=== PATIENT | male | born 1940 | race Caucasian/White ===

== ENCOUNTER 2023-01-05 16:50 | Outpatient (OUT) | payer OTHER, SELFPAY ==
[2023-01-05 17:15] LABS: Calcium 10.3 mg/dL (8.5-10.1)
== END 2023-01-05 16:51 | disposition home or self-care (01) ==
PROVIDERS: PCP Nurse Practitioner Family; Visit Provider Nurse Practitioner Family
DX: M81.0 Age-related osteoporosis without current pathological fracture (principal)
CPT/HCPCS: 36415; 82310

== ENCOUNTER 2023-01-20 14:54 | Outpatient (OUT) | payer OTHER, SELFPAY ==
[2023-01-20 15:07] LABS: Hemoglobin 10.6 g/dL (14.0-18.0)
== END 2023-01-20 14:55 | disposition home or self-care (01) ==
LOC: LAB 14:55
PROVIDERS: Visit Provider Psychiatry & Neurology Neurology
DX: G70.00 Myasthenia gravis without (acute) exacerbation (principal)
CPT/HCPCS: 36415; 83540; 85018

== ENCOUNTER 2023-02-15 11:10 | Emergency (ER) | payer OTHER, SELFPAY ==
[2023-02-15] VITALS (8 sets, daily range): BP systolic 148; BP diastolic 67; PULSE 44–51; RESP 16–23; TEMP 36.4; O2SAT 98; BMI 31.3
--- NOTE | 2023-02-15 11:20 | ECG_ITS ---
[facility] Test Date: 2023-02-15 Pat Name: COTY GARCIA Department: Room: - Gender: Male [employer]: : 1940 Requested By: [id number] Order Number: [id number] Reading MD: DINORAH LO Measurements Intervals Beccaria Rate: 47 P: -6 MN: 184 QRS: -13 QRSD: 102 T: 38 QT: 502 QTc: 464 Interpretive Statements 1102 Sinus arrhythmia 1130 Sinus bradycardia 3414 Cannot rule out septal myocardial infarction, age undetermined 4564 Twave abnormality, possible inferolateral ischemia 5233 Voltage criteria for LVH 9150 abnormal ECG No previous ECG available for comparison Electronically Signed On 02-16-2023 7:00:30 EDT by DINORAH LO
--- NOTE | 2023-02-15 11:20 | XR_ITS ---
The [address] [address] Patient Name: COTY GARCIA MRN: [id number] date: 1940 Sex: M Assigned Patient Location: ED.MAIN Current Patient Location: ER Accession/Order Number: [id number] Exam Date: 02/15/2023 11:30 Report Date: 02/15/2023 12:23 At the request of: RYAN RADFORD Procedure: XR chest 1V XR chest 1V 02/15/2023 11:30 AM EDT INDICATION: Dizzy. Nausea. COMPARISON: Radiograph the chest 12/01/2021 FINDINGS: Cardiomediastinal silhouette within normal limits. No focal consolidation or pleural effusion. No pneumothorax. Remote left rib fractures. No acute fracture or dislocation. XR/XR chest 1V IMPRESSION: No acute cardiopulmonary process. Electronically authenticated by: RACHEL LOPEZ Date: 02/15/2023 12:23
[2023-02-15 11:52] LABS: Basophils Percent Auto 0.5 % (0.2-2.0); Eosinophils Absolute Auto 0.1 10^3/uL (0.0-0.7); Eosinophils Percent Auto 1.6 % (0.9-7.0); Hematocrit 34.8 % (42.0-54.0); Hemoglobin 10.9 g/dL (14.0-18.0); Immature Granulocytes Abs Auto 0.01 10^3/uL (0.00-0.03); Immature Granulocytes Pct Auto 0.2 % (0.0-0.5); Lymphocytes Absolute Auto 1.1 10^3/uL (1.2-3.8); Lymphocytes Percent Auto 19.3 % (20.5-60.0); Mean Corpuscular HGB Conc 31.3 g/dL (29.9-35.2); Mean Corpuscular Hemoglobin 32.5 pg (25.9-34.0); Mean Corpuscular Volume 103.9 fL (80.0-94.0); Mean Platelet Volume 9.9 fL (9.5-13.5); Monocytes Absolute Auto 0.5 10^3/uL (0.3-0.8); Monocytes Percent Auto 9.1 % (1.7-12.0); Neutrophils Percent Auto 69.3 % (43.0-75.0); Platelet Count 183 10^3/uL (150-450); Red Blood Count 3.35 10^6/uL (4.70-6.10); Red Cell Distribution Width 14.7 % (11.0-15.0); White Blood Count 5.8 10^3/uL (4.0-11.0)
[2023-02-15 12:43] LABS: Anion Gap 14.4; BUN Creatinine Ratio 18.7; Calcium 9.5 mg/dL (8.5-10.1); Carbon Dioxide 24.7 mmol/L (21.0-32.0); Chloride 106 mmol/L (98-107); Estimated GFR (African America >60 (>=60); Estimated GFR (Non-African Ame >60 (>=60); Glucose 134 mg/dL (74-106); Potassium 4.1 mmol/L (3.5-5.1); Sodium 141 mmol/L (136-145); Troponin I High Sensitivity 9.9 pg/mL (4.0-76.1)
--- NOTE | 2023-02-15 14:21 | ED_ITS ---
HPI - Dizziness General Chief Complaint: Dizziness Stated Complaint: LIGHTHEAD/DIZZINESS Time Seen by Provider: 02/15/23 11:18 Source: patient Mode of arrival: er cart History of Present Illness HPI Narrative: 82-year-old male to the emergency department with chief complaint of near- syncopal episode. Patient reports that he was at outpatient radiology about to get a DEXA scan. He reports he is feeling hot in the room in which she was si tting and began to black out. He did not lose consciousness. He did not have palpitations, chest pain, shortness of breath during this episode. He reports that he rapidly recovered. He is currently asymptomatic. Patient reports that he did not want to be seen in the emergency department but was urged to be checked out. MD elicited complaint: Reports near syncope Related Data Allergies Allergy/AdvReac Type Severity Reaction Status Date / Time No Known Drug Allergies Allergy Verified 02/15/23 11:14 Review of Systems ROS Status of ROS 10 or more systems reviewed and unremarkable except as noted in history and below Exam Narrative Exam Narrative: VITALS: I have reviewed the triage vital signs. GENERAL: Well developed, well appearing adult in no acute distress. NEURO: Alert and oriented. Moves all extremities. Face is symmetric and expressive. EYES: PERRL. No scleral icterus or conjunctival injection. No discharge. HENT: Normocephalic, atraumatic. Hearing is grossly intact. Nares grossly patent and without discharge. Mucous membranes moist. NECK: No JVD. Patient moves neck without restriction. CARDIO: Rhythm regular. Normal rate. No murmur, rub, or gallop. Pulses equal bilaterally in the upper and lower extremity. No lower extremity edema. PULM: Lungs clear to auscultation in all gonsalez. No wheezes, rales, or rhonchi. No conversational dyspnea. No splinting, stridor, or accessory muscle use. GI/: Abdomen is soft and non-tender. Normoactive bowel sounds. EXTREMITIES: Symmetric muscle bulk. No joint swelling. No clubbing, cyanosis, or deformity. SKIN: Warm and dry. Normal turgor. No rash or lesions appreciated. PSYCH: Mood, affect, and interaction is appropriate to the setting. Constitutional Vital Signs, click to edit/add: Last Vital Signs Temp 97.6 F 02/15/23 11:14 Pulse 51 L 02/15/23 12:50 Resp 23 02/15/23 12:50 BP 148/67 H 02/15/23 11:14 Pulse Ox 98 02/15/23 11:14 O2 Del Method Room Air 02/15/23 11:14 Course Vital Signs Vital signs: Vital Signs Blood Pressure 148/67 H 02/15/23 11:07 Temperature 97.6 F 02/15/23 11:14 Pulse Rate 51 L 02/15/23 12:50 Respiratory Rate 23 02/15/23 12:50 Blood Pressure 148/67 H 02/15/23 11:14 Pulse Oximetry 98 02/15/23 11:14 Oxygen Delivery Method Room Air 02/15/23 11:14 MDM - Dizziness MDM Narrative Medical decision making narrative: Well-appearing 82-year-old male to the emergency department by chief complaint near syncopal episode that rapidly resolved. Vital stable, the patient is afebrile. 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 He denies any chest pain or shortness of breath. Patient initially did not want to be seen. I talked him into getting some basic labs. Lab reviewed and noted. No significant abnormalities. Troponin is negative. Chest x-ray without acute findings. EKG sinus bradycardia at a rate of 47. No ST changes. Normal QTC. Discussed findings with the patient. He remained asymptomatic. Given his advanced age I did offer admission, he declines. Reports that his dogs are only needs to get home immediately. Patient would like to leave. Discussed follow-up with PCP. Return should return discussed. All questions were answered. The patient was discharged home. Lab Data Labs: Lab Results 02/15/23 Range/Units 11:38 WBC 5.8 (4.0-11.0) 10^3/uL RBC 3.35 L (4.70-6.10) 10^6/uL Hgb 10.9 L (14.0-18.0) g/dL Hct 34.8 L (42.0-54.0) % MCV 103.9 H (80.0-94.0) fL MCH 32.5 (25.9-34.0) pg MCHC 31.3 (29.9-35.2) g/dL RDW 14.7 (11.0-15.0) % Plt Count 183 (150-450) 10^3/uL MPV 9.9 (9.5-13.5) fL Neut % (Auto) 69.3 (43.0-75.0) % Lymph % (Auto) 19.3 L (20.5-60.0) % [place] % (Auto) 9.1 (1.7-12.0) % Eos % (Auto) 1.6 (0.9-7.0) % Baso % (Auto) 0.5 (0.2-2.0) % Neut # (Auto) 4.0 (1.4-6.5) 10^3/uL Lymph # (Auto) 1.1 L (1.2-3.8) 10^3/uL [place] # (Auto) 0.5 (0.3-0.8) 10^3/uL Eos # (Auto) 0.1 (0.0-0.7) 10^3/uL Baso # (Auto) 0.0 (0.0-0.1) 10^3/uL Abs Immat Gran (auto) 0.01 (0.00-0.03) 10^3/uL Imm/Tot Granulo (auto) 0.2 (0.0-0.5) % Sodium 141 (136-145) mmol/L Potassium 4.1 (3.5-5.1) mmol/L Chloride 106 (98-107) mmol/L Carbon Dioxide 24.7 (21.0-32.0) mmol/L Anion Gap 14.4 BUN 14.0 (7.0-18.0) mg/dL Creatinine 0.75 (0.70-1.30) mg/dL Est GFR ( Amer) >60 (>=60) Est GFR (Non-Af Amer) >60 (>=60) BUN/Creatinine Ratio 18.7 Glucose 134 H (74-106) mg/dL Calcium 9.5 (8.5-10.1) mg/dL Troponin I High Sens 9.9 (4.0-76.1) pg/mL Discharge Plan Discharge Chief Complaint: Dizziness Clinical Impression: Near syncope Patient Disposition: Home, Self-Care Time of Disposition Decision: 12:54 Condition: Good Print Language: Amharic Instructions: Near Syncope (ED) Stand Alone Forms: Portal Instructions Referrals: Physician,Non-Staff, MD [Primary Care Provider] - 1 week (Follow-up with her [facility] doctor. Return to the Emergency Department should her symptoms worsen or recur.) Discharge Date/Time: 02/15/23 13:01
== END 2023-02-15 13:01 | disposition home or self-care (01) ==
PROVIDERS: Emergency Provider Student in an Organized Health Care Education/Training Program
DX: R55 Syncope and collapse (principal)
CPT/HCPCS: 36415; 71045; 80048; 84484; 85025; 93005; 99285

== ENCOUNTER 2023-02-17 13:45 | Outpatient (OUT) | payer OTHER, SELFPAY ==
--- NOTE | 2023-02-17 14:00 | XR_ITS ---
[place] [id number] Patient Name: COTY GARCIA MRN: [id number] date: 1940 Sex: M Assigned Patient Location: [facility] Current Patient Location: Accession/Order Number: [id number] Exam Date: 02/17/2023 14:05 Report Date: 02/21/2023 07:32 At the request of: ANYI HOPSON Procedure: XR DEXA axial skeleton EXAMINATION: XR DEXA axial skeleton HISTORY: Screening For Osteoporosis COMPARISON: No relevant comparison available. TECHNIQUE: Dual-energy X-ray absorptiometry (DXA) was performed. FINDINGS: HIP ANALYSIS: Lowest bone mineral density is within the right femoral trochanter, 0.465 g/cm2. T-score (standard deviation relative to young adult mean): -4.2 . T score within femoral neck is also significantly low, -3.3. XR/XR DEXA axial skeleton IMPRESSION: [employer] Classification: Osteoporosis - High Fracture Risk Electronically authenticated by: HERNANDEZ ALCARAZ Date: 02/21/2023 07:32
== END 2023-02-17 13:46 | disposition home or self-care (01) ==
LOC: RAD 13:45
PROVIDERS: Visit Provider Nurse Practitioner Family
DX: M81.0 Age-related osteoporosis without current pathological fracture (principal)
CPT/HCPCS: 77080

== ENCOUNTER 2023-08-05 11:26 | Outpatient (OUT) | payer OTHER, SELFPAY ==
[2023-08-05 12:54] LABS: Calcium 10.7 mg/dL (8.5-10.1)
== END 2023-08-05 11:27 | disposition home or self-care (01) ==
PROVIDERS: Visit Provider Nurse Practitioner Family
DX: M81.0 Age-related osteoporosis without current pathological fracture (principal)
CPT/HCPCS: 36415; 82310

== ENCOUNTER 2023-12-03 11:20 | Emergency (ER) | payer OTHER, SELFPAY ==
[2023-12-03 11:27] VITALS: BP 126/74; PULSE 72; TEMP 36.8; O2SAT 99; BMI 32.2
--- OUTSIDE RECORDS SUMMARY | 2023-12-03 11:45 | XMS_ITS | CCD ---
Author Organization [facility] ion [facility] Care Team Providers Care Plastics Scientist Name Role Phone Collette Barkley Unavailable Charlee Shields Unavailable REQUEST, DR TROTTER LISTED Admitting Unavaila ble REQUEST, DR TROTTER LISTED Attending Unavaila ble REQUEST, DR TROTTER LISTED Primary Care Unavaila ble APLING, ANYI Mckinney Admitting Unavailable APLING, ANYI Mckinney Attending Unavailable REQUEST, DR TROTTER LISTED Primary Care Unavaila ble APLANYI NAVARRETE Consulting Unavailable OLEXA, COLLETTE Admitting Unavailable OLEXA, COLLETTE Attending Unavailable REQUEST, DR TROTTER LISTED Primary Care Unavaila ble WEST, DR DEBBI Lynn Consulting Unavailable OLEXA, COLLETTE Consulting Unavailable REQUEST, DR TROTTER LISTED Primary Care Unavaila ble TIP, ERICK Admitting Unavailable TIP, ERICK Attending Unavailable WEST, DR DEBBI Lynn Consulting Unavailable TIP, ERICK Consulting Unavailable APLING, ANYI Mckinney Attending Unavailable Unavailable Primary Care Provider Unavailabl e Allergies Allergy Classification Reported Allergen(s) Allergy Type Date of Onset Reaction(s) Facility (1 source) ceFAZolin Drug Allergy 11-25-2022 Other [facility] Work Phone: (1 source) Sulfonamides (Antibiotic) Drug Allergy 02-04-2017 Rash [facility] Medications Current Medications Medication Drug Class(es) Dates Sig (Normalized) Sig (Original) aspirin 81 mg delayed release oral tablet (3 sources) Platelet Aggregation Inhibitor, Nonsteroidal Anti-inflammatory Drug take 1 tablet by mouth once aspirin 81 MG EC tablet Take 81 mg by mouth 1 (one) time. 0 Active take 1 tablet by mouth once binu y Aspirin 81 81 MG 1 tablet Orally Once a day Active atorvastatin 80 mg oral tablet (3 sources) HMG-CoA Reductase Inhibitor take 1 tablet by mouth in the morning atorvastatin (Lipitor) 80 MG tablet Take 80 mg by mouth in the morning. 0 Active calcium carbonate 500 mg oral tablet (1 source) take 1 tablet by mouth in the morning calcium carbonate (Os-Antoine) 1250 (500 Ca) MG tablet Take 1,250 mg by mouth in the morning and 1,250 mg before bedtime. 0 Active carvedilol 12.5 mg oral tablet (3 sources) alpha-Adrenergic Rashel, beta-Adrenergic Rashel take 1 tablet by mouth in the morning carvedilol (Coreg) 12.5 MG tablet Take 12.5 mg by mouth in the morning and 12.5 mg in the evening. Take with meals. 0 Active cholecalciferol 0.125 mg oral capsule (1 source) Vitamin D take 1 capsule by mouth in the morning cholecalciferol (Vitamin D-3) 125 MCG (5000 UT) capsule Take 5,000 Units by mouth in the morning. 0 Active diclofenac sodium 0.01 mg/mg topical gel (1 source) Nonsteroidal Anti-inflammatory Drug diclofenac sodium (Voltaren) 1 % gel Apply 4 g topically in the morning and 4 g in the evening and 4 g before bedtime. 0 Active empagliflozin 10 mg oral tablet (1 source) Sodium-Glucose Cotransporter 2 Inhibitor empagliflozin (Jardiance) 10 MG Take by mouth. 0 Active ferrous sulfate 325 mg delayed release oral tablet (1 source) Start: take 1 tablet by mouth at mealtime ferrous sulfate 325 (65 Fe) MG EC tablet Take 325 mg by mouth in the morning. Take with meals. 0 09/25/2022 Active insulin glargine 100 unt/ml injectable solution (2 sources) Insulin Analog Lantus 100 UNIT/ ML as directed Subcutaneous Active linaclotide 0.145 mg oral capsule (1 source) Guanylate Cyclase-C Agonist Start: 023 take 1 capsule by mouth before mealtime linaCLOtide (Linzess) 145 MCG capsule Indications: Irritable bowel syndrome with diarrhea Take 1 capsule (145 mcg) by mouth in the morning. Take before meals. Do not crush or chew.. 90 capsule 3 03/28/2023 Active losartan potassium 50 mg oral tablet (3 sources) Angiotensin 2 Receptor Rashel take 1 tablet by mouth in the morning losartan (Cozaar) 50 MG tablet Take 50 mg by mouth in the morning. 0 Active montelukast 10 mg oral tablet (1 source) Leukotriene Receptor Antagonist Start: 023 take 1 tablet by mouth at bedtime montelukast (Singulair) 10 MG tablet Indications: Chronic maxillary sinusitis Take 1 tablet (10 mg) by mouth at bedtime. 90 tablet 2 03/28/2023 Active nitroglycerin 0.4 mg sublingual tablet (1 source) Nitrate Vasodilator nitroglyceri n (Nitrostat) 0.[address] 0.4 mg under the tongue every 5 (five) minutes if needed for chest pain. 0 Active pantoprazole 40 mg delayed release oral tablet (3 sources) Proton Pump Inhibitor Start: 023 pantoprazole (ProtoNix) 40 MG EC tablet 1 (one) time each day at the same time. 0 08/30/2022 Active take 1 tablet by ramírez th every twenty-four hours Pantoprazole Sodium 20 MG 1 tablet Orall y Once a day Active predniSONE 5 mg oral tablet (1 source) Start: 01-28-2023 End: 01-28-2024 take 1 tablet by mouth in the morning predniSONE (Deltasone) 5 MG tablet Indications: Myasthenia gravis (CMS/HCC) Take 1 tablet (5 mg) by mouth in the morning. 90 tablet 3 01/28/2023 01/28/2024 Active pyridostigmine bromide 180 mg extended release oral tablet (1 source) take 1 tablet by mouth in the morning pyridostigmine (Mestinon) 180 MG ER tablet Take 180 mg by mouth in the morning and 180 mg before bedtime. 0 Active 12 hr ranolazine 500 mg extended release oral tablet (1 source) Anti-anginal take 1 tablet by mouth every twelve hours in the morning ranolazine (Ranexa) 500 MG 12 hr tablet Take 500 mg by mouth in the morning and 500 mg before bedtime. 0 Active Semglee, yfgn, 100 UNIT/ML pen (1 source) Start: 12-15-2022 Semglee, yfgn, 100 UNIT/ML pen tamsulosin hydrochloride 0.4 mg oral capsule (1 source) alpha-Adrenerg ic Rashel take 1 capsule by mouth every twenty-four hours in the morning tamsulosin (Flomax) 0.4 MG 24 hr capsule Take 0.4 mg by mouth in the morning. 0 Active ticagrelor 90 mg oral tablet (1 source) take 1 tablet by mouth in the morning ticagrelor (Brilinta) 90 MG tablet Take 90 mg by mouth in the morning and 90 mg before bedtime. 0 Active traMADol hydrochloride 50 mg oral tablet (2 sources) Opioid Agonist Start: 01-01-2022 take 1 tablet by mouth once daily as needed for pain traMADol HCl 50 MG 1 tablet as needed for pain Orally Once a day for 10 days Jan, Active Ultomiris 1100 MG/11ML injection (1 source) Start: 01-17-2023 Ultomiris 1100 MG/11ML injection vitamin b12 1 mg/ml injectable solution (1 source) Vitamin B12 cyanocobalamin (Vitamin B-12) 1000 MCG/ML injection INJECT 1 ML DAILY FOR 7 DAYS,THEN WEEKLY FOR 4 WEEKS,THEN MONTHLY 0 Active Problems Active Problems Problem Classification Problem Date Documented Da te Episodic/Chronic Acute myocardial infarction (1 source) Myocardial infarction; Translations: [Non-ST elevation (NSTEMI) myocardial infarction] Onset: 03-11-2018 01-24-2023 Chronic Congestive heart failure; nonhypertensive (1 source) Chronic systolic heart failure; Translations: [Chronic systolic (congestive) heart failure] Onset: 10-16-2018 01-24-2023 Chronic Coronary atherosclerosis and other heart disease (3 sources) Coronary atherosclerosis; Translations: [Atherosclerotic heart disease of [place] coronary artery without angina pectoris] Onset: 12-18-2014 01-24-2023 Chronic Diabetes mellitus with complications (2 sources) Hypertensive disorder; Translations: [Type 2 diabetes mellitus with other circulatory complications] Onset: 03-06-2015 01-24-2023 Chronic Disorders of lipid metabolism (3 sources) Dyslipidemia; Translations: [Hyperlipidemia, unspecified] Onset: 08-11-2015 01-24-2023 Chronic Osteoporosis (6 sources) Age-related osteoporosis without current pathological fracture; Translations: [Senile osteoporosis] Onset: 06-09-2022 Chronic Other nervous system disorders (1 source) Myasthenia gravis; Translations: [Myasthenia gravis without (acute) exacerbation] Onset: 09-01-2021 11-25-2022 Chronic Other nutritional; endocrine; and metabolic disorders (1 source) Body mass index 30+ - obesity; Translations: [Body mass index (BMI) 31.0-31.9, adult] Onset: 04-24-2018 01-24-2023 Chronic Other nutritional; endocrine; and metabolic disorders (1 source) Hypercalcemia; Translations: [Hypercalcemia] Onset: 01-24-2023 01-24-2023 Chronic Other nutritional; endocrine; and metabolic disorders (1 source) Hypocalcemia; Translations: [Hypocalcemia] Onset: 01-24-2023 01-24-2023 Chronic Peripheral and visceral atherosclerosis (1 source) Superior mesenteric artery syndrome; 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] Onset: 01-24-2023 01-24-2023 Chronic Past or Other Problems Problem Classification Problem Date Documented Date Episodic/Chronic Blindness and vision defects (1 source) Eye / vision finding; Translations: [Unspecified visual disturbance] Onset: 01-24-2023 01-24-2023 Episodic Calculus of urinary tract (1 source) Kidney stone; Translations: [Calculus of kidney] Onset: 03-06-2015 01-24-2023 Episodic Complications of surgical procedures or medical care (1 source) Postoperative wound infection; Translations: [Infection following a procedure, other surgical site, initial encounter] Onset: 08-05-2021 01-24-2023 Episodic Coronary atherosclerosis and other heart disease (1 source) Patient post percutaneous transluminal coronary angioplasty; Translations: [Coronary angioplasty status] Onset: 01-14-2015 01-24-2023 Episodic Deficiency and other anemia (1 source) Iron deficiency anemia; Translations: [Iron deficiency anemia, unspecified] Onset: 10-05-2022 01-24-2023 Episodic Deficiency and other anemia (1 source) Anemia; Translations: [Anemia, unspecified] Onset: 10-05-2022 01-24-2023 Episodic E Codes: Fall (1 source) Fall (on) (from) other stairs and steps, initial encounter; Translations: [FALL ON FROM OTH STAIRS STEPS INIT] Onset: 12-07-2021 Episodic Fluid and electrolyte disorders (1 source) Hypokalemia; Translations: [Hypokalemia] Onset: 01-24-2023 01-24-2023 Episodic Fracture of lower limb (1 source) Fracture of femur; Translations: [Unspecified fracture of unspecified femur, initial encounter for closed fracture] Onset: 07-18-2019 01-24-2023 Episodic Fracture of upper limb (7 sources) Displaced fracture of olecranon process without intraarticular extension of left ulna, initial encounter for closed fracture; Translations: [Displaced fracture of olecranon process without intraarticular extension of left ulna, subsequent encounter for closed fracture with routine healing] Onset: 12-07-2021 Resolved: 12-29-2021 Episodic Intestinal infection (1 source) Infectious diarrheal disease; Translations: [Infectious gastroenteritis and colitis, unspecified] Onset: 01-24-2023 01-24-2023 Episodic Noninfectious gastroenteritis (1 source) Colitis; Translations: [Noninfective gastroenteritis and colitis, unspecified] Onset: 07-12-2019 01-24-2023 Episodic Nonspecific chest pain (1 source) Acute chest pain; Translations: [Chest pain, unspecified] Onset: 03-10-2018 01-24-2023 Episodic Nutritional deficiencies (1 source) Cobalamin deficiency; Translations: [Deficiency of other specified B group vitamins] Onset: 10-12-2022 01-24-2023 Episodic Other acquired deformities (1 source) Lumbar spondylolisthesis; Translations: [Spondylolisthesis, lumbar region] Onset: 04-15-2021 01-24-2023 Episodic Other aftercare (1 source) detention (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; Translations: [CARE HOME CURRENT USE OF ASPIRIN] Onset: 12-07-2021 Episodic Other aftercare (1 source) Other custodial (current) drug therapy; Translations: [OTH MATTE CUTTER CURRENT DRUG THERAPY] Onset: 12-07-2021 Episodic Other aftercare (1 source) long term (current) use of insulin; Translations: [CARE HOME CURRENT USE OF INSULIN] Onset: 12-07-2021 Episodic Other aftercare (1 source) Long-term current use of anticoagulant; Translations: [long term (current) use of anticoagulants] Onset: 01-24-2023 01-24-2023 Episodic Other fractures (1 source) Multiple fractures of ribs, left side, initial encounter for closed fracture; Translations: [MX FX RIBS LT SIDE INITIAL CLOS FX] Onset: 12-07-2021 Episodic Other lower respiratory disease (1 source) Nodule of lung; Translations: [Solitary pulmonary nodule] Onset: 01-24-2023 01-24-2023 Episodic Other lower respiratory disease (1 source) Solitary nodule of lung; Translations: [Solitary pulmonary nodule] Onset: 03-06-2015 01-24-2023 Episodic Other nervous system disorders (1 source) H/O: musculoskeletal disease; Translations: [Personal history of other diseases of the nervous system and sense organs] Onset: 03-24-2022 01-24-2023 Episodic Other nervous system disorders (1 source) Slurred speech; Translations: [Slurred speech] Onset: 08-28-2021 01-24-2023 Episodic Other non-traumatic joint disorders (3 sources) Pain in left elbow; Translations: [PAIN IN LEFT ELBOW] Onset: 12-01-2021 Episodic Other screening for suspected conditions (not mental disorders or infectious disease) (2 sources) Cardiovascular stress test abnormal; Translations: [Abnormal result of other cardiovascular function study] Onset: 12-04-2014 01-24-2023 Episodic Residual codes; unclassified (1 source) Transient alteration of awareness; Translations: [Transient alteration of awareness] Onset: 01-24-2023 01-24-2023 Episodic Screening and history of mental health and substance abuse codes (2 sources) Personal history of nicotine dependence; Translations: [Tobacco use and exposure - finding] Onset: 03-06-2015 01-24-2023 Episodic Spondylosis; intervertebral disc disorders; other back problems (2 sources) Lumbar radiculopathy; Translations: [Radiculopathy, lumbar region] Onset: 04-15-2021 01-24-2023 Episodic Syncope (1 source) Syncope and collapse; Translations: [Syncope and collapse] Onset: 01-24-2023 01-24-2023 Episodic Results Test Name Value Interpretation Reference Range Facil ity CALCIUMon 06-09-2022 Calcium [Mass/Vol] 10.2 mg/dL Critically high 8.5-10.1 [facility] Comment on above: Performed By: #### C A #### [facility] [address] [place] [address] Dr. Hayder Howell XR elbow LT 2Von 12-29-2021 XR elbow LT 2V [facility] [place] [address] XRay Report Signed Patient: Jamal Arrieta V MR#: [id number] : 1940 Acct:[id number] Age/Sex: 81 / M ADM Date: 12/29/21 Loc: SOXD Room: Type: [facility] Attending Dr: Collette Barkley MD Copies to: Collette Barkley MD Ordering Provider: Collette Barkley MD Date of Service: 12/29/21 XR/XR elbow LT 2V: Closed fracture of olecranon process of left ulna with routi LEFT ELBOW - 2 views CLINICAL HISTORY: Follow-up olecranon process fracture COMPARISON: Left elbow 12/08/2021 FINDINGS: Interval sclerosis involving the patient's olecranon process fracture suggestive of healing. No significant change in alignment. Mild joint spurring. No definite elbow joint effusion. Vascular calcifications. XR/XR elbow LT 2V IMPRESSION: HEALING OLECRANON PROCESS FRACTURE. Impression dictated by: Sudeep Zhao Jr., D.O.12/29/2021 11:31 AM Dictation Location: [place] [address] Transcribed By: [facility] 12/29/21 1131 Dictated By: Sudeep Zhao Jr, DO 12/29/21 1130 Signed By: 12/29/21 1131 Normal [facility] CBC AUTO DIFFon 12-01-2021 BASO # 0.0 103/ul Normal 0.0-0.1 [facility] Comment on above: Performed By: #### C BC #### [facility] [address] [place] [address] [address] Hayder Howell Basophils/100 WBC (Bld) 0.3 % Normal 0.2-2.0 [facility] Comment on above: Performed By: #### C BC #### [facility] [address] [place] [address] [address] Hayder Howell EO # 0.0 103/ul Normal 0.0-0.7 [facility] Comment on above: Performed By: #### C BC #### [facility] [address] [place] [address] [address] Hayder Howell Eosinophils/100 WBC (Bld) 0.3 % Critically low 0.9-7.0 [facility] Comment on above: Performed By: #### C BC #### [facility] [address] [place] [address] Dr. Hayder Howell Erythrocyte distribution width (RBC) [Ratio] 19.5 % Critically high 11.0-15.0 [facility] Comment on above: Performed By: #### C BC #### [facility] [address] [place] [address] Dr. Hayder Howell Hematocrit (Bld) [Volume fraction] 30.3 % Critically low 42.0-54.0 [facility] Comment on above: Performed By: #### C BC #### [facility] [address] [place] [address] Dr. Hayder Howell Hemoglobin (Bld) [Mass/Vol] 9.0 g/dL Critically low 14.0-18.0 [facility] Comment on above: Performed By: #### C BC #### [facility] [address] [place] [address] Dr. Hayder Howell IG # 0.02 10e3/ul Normal 0.00-0.03 [facility] Comment on above: Performed By: #### C BC #### [facility] [address] [place] [address] Dr. Hayder Howell IG % 0.3 % Normal 0.0-0.5 [facility] Comment on above: Performed By: #### C BC #### [facility] [address] [place] [address] Dr. Hayder Howell LYMPH # 1.2 103/ul Normal 1.2-3.8 [facility] Comment on above: Performed By: #### C BC #### [facility] [address] [place] [address] Dr. Hayder Howell Lymphocytes/100 WBC (Bld) 15.9 % Critically low 20.5-60.0 [facility] Comment on above: Performed By: #### C BC #### [facility] [address] [place] [address] Dr. Hayder Howell MANUAL DIFF REQ NO Normal [facility] Comment on above: Performed By: #### C BC #### [facility] [address] [place] [address] Dr. Hayder Howell MCH (RBC) [Entitic mass] 25.5 pg Critically low 25.9-34.0 [facility] Comment on above: Performed By: #### C BC #### [facility] [address] [address] [address] Hayder Howell MCHC (RBC) [Mass/Vol] 29.7 g/dL Critically low 29.9-35.2 [facility] Comment on above: Performed By: #### C BC #### [facility] [address] [place] [address] Dr. Hayder Howell MCV (RBC) [Entitic vol] 85.8 fL Normal 80.0-94.0 [facility] Comment on above: Performed By: #### C BC #### [facility] [address] [place] [address] Dr. Hayder Howell MONO # 0.9 103/ul Critically high 0.3-0.8 [facility] Comment on above: Performed By: #### C BC #### [facility] [address] [place] [address] Dr. Hayder Howell Monocytes/100 WBC (Bld) 11.9 % Normal 1.7-12.0 [facility] Comment on above: Performed By: #### C BC #### [facility] [address] [place] [address] Dr. Hayder Howell NEUT # 5.3 103/ul Normal 1.4-6.5 [facility] Comment on above: Performed By: #### C BC #### [facility] [address] [place] [address] Dr. Hayder Howell Neutrophils/100 WBC (Bld) 71.3 % Normal 43.0-75.0 [facility] Comment on above: Performed By: #### C BC #### [facility] [address] [place] [address] Dr. Hayder Howell Platelet mean volume (Bld) [Entitic vol] 8.8 fL Critically low 9.5-13.5 [facility] Comment on above: Performed By: #### C BC #### [facility] [address] [place] [address] Dr. Hayder Howell PLT 225 103/ul Normal 150-450 [facility] Comment on above: Performed By: #### C BC #### [facility] [address] [place] [address] Dr. Hayder Howell RBC 3.53 106/ul Critically low 4.70-6.10 [facility] Comment on above: Performed By: #### C BC #### [facility] [address] [address] [address] Hayder Howell WBC 7.4 103/ul Normal 4.0-11.0 [facility] Comment on above: Performed By: #### C BC #### [facility] [address] [place] [address] Dr. Hayder Howell ER URINE PROFILEon 2 Bilirubin Ql (U) Negative Normal NEGATIVE [facility] Comment on above: Performed By: #### U MICRO, ERUR #### [facility] [address] [place] [address] Dr. Hayder Howell Clarity (U) CLEAR Normal CLEAR [facility] Comment on above: Performed By: #### U MICRO, ERUR #### [facility] [address] [place] [address] Dr. Hayder Howell Color (U) YELLOW Normal YELLOW [facility] Comment on above: Performed By: #### U MICRO, ERUR #### [facility] [address] [place] [address] Dr. Hayder HAMILTON A micrscopic examination will be performed if indicated. Normal [facility] Comment on above: Performed By: #### U MICRO, ERUR #### [facility] [address] [place] [address] Dr. Hayder Howell Glucose Ql (U) Negative Normal NEGATIVE [facility] Comment on above: Performed By: #### U MICRO, ERUR #### [facility] [address] [place] [address] Dr. Hayder Howell Hemoglobin Ql (U) Negative Normal NEGATIVE [facility] Comment on above: Performed By: #### U MICRO, ERUR #### [facility] [address] [address] [address] Hayder Howell Ketones Ql (U) Negative Normal NEGATIVE [facility] Comment on above: Performed By: #### U MICRO, ERUR #### [facility] [address] [place] [address] Dr. Hayder Howell LEUKOCYTES TRACE Abnormal NEGATIVE [facility] Comment on above: Performed By: #### U MICRO, ERUR #### [facility] [address] [address] [address] Hayder Howell Nitrite Ql (U) Negative Normal NEGATIVE [facility] Comment on above: Performed By: #### U MICRO, ERUR #### [facility] [address] [place] [address] Dr. Hayder Howell pH (U) 5.0 [pH] Normal 5-9 [facility] Comment on above: Performed By: #### U MICRO, ERUR #### [facility] [address] [place] [address] Dr. Hayder Howell SPEC GRAVITY 1.025 Normal 1.005-<=1.025 [facility] Comment on above: Performed By: #### U MICRO, ERUR #### [facility] [address] [place] [address] Dr. Hayder Howell UA PROTEIN Negative Normal NEGATIVE/ TRACE [facility] Comment on above: Performed By: #### U MICRO, ERUR #### [facility] [address] [address] [address] Hayder Howell UR MICRO IND INDICATED Normal [facility] Comment on above: Performed By: #### U MICRO, ERUR #### [facility] [address] [place] [address] Dr. Hayder Howell Urobilinogen Qn (U) 0.2 {[place]'U}/dL Normal 0.2 - 1.0 [facility] Comment on above: Performed By: #### U MICRO, ERUR #### [facility] [address] [place] [address] Dr. Hayder Howell PROF 14(COMP METB)on 022 Albumin [Mass/Vol] 3.0 g/dL Critically low 3.4-5.0 [facility] Comment on above: Performed By: #### C MP #### [facility] [address] [place] [address] Dr. Hayder Howell Albumin/Globulin [Mass ratio] 1.0 {ratio} Normal [facility] Comment on above: Performed By: #### C MP #### [facility] [address] [place] [address] Dr. Hayder Howell ALP [Catalytic activity/Vol] 61 U/L Normal 46-116 [facility] Comment on above: Performed By: #### C MP #### [facility] [address] [place] [address] Dr. Hayder Howell ALT [Catalytic activity/Vol] 41 U/L Normal 16-63 [facility] Comment on above: Performed By: #### C MP #### [facility] [address] [place] [address] Dr. Hayder Howell Anion gap [Moles/Vol] 9.4 mmol/L Normal [facility] Comment on above: Performed By: #### C MP #### [facility] [address] [place] [address] Dr. Hayder Howell AST [Catalytic activity/Vol] 20 U/L Normal 15-37 [facility] Comment on above: Performed By: #### C MP #### [facility] [address] [place] [address] Dr. Hayder Howell Bilirubin [Mass/Vol] 1.0 mg/dL Normal 0.2-1.0 [facility] Comment on above: Performed By: #### C MP #### [facility] [address] [place] [address] Dr. Hayder Howell Calcium [Mass/Vol] 9.6 mg/dL Normal 8.5-10.1 [facility] Comment on above: Performed By: #### C MP #### [facility] [address] [place] [address] Dr. Hayedr Howell Chloride [Moles/Vol] 106 mmol/L Normal 98-107 [facility] Comment on above: Performed By: #### C MP #### [facility] [address] [address] [address] Hayder Howell CO2 [Moles/Vol] 27.3 mmol/L Normal 21.0-32.0 [facility] Comment on above: Performed By: #### C MP #### [facility] [address] [address] [address] Hayder Howell Creatinine [Mass/Vol] 0.71 mg/dL Normal 0.70-1.30 [facility] Comment on above: Performed By: #### C MP #### [facility] [address] [address] [address] Hayder Howell EGFR-AF NEW ZEALANDER >60 Normal >=60 [facility] Comment on above: Performed By: #### C MP #### [facility] [address] [address] [address] Hayder Howell EGFR-NON AF NEW ZEALANDER >60 Normal >=60 [facility] Comment on above: Performed By: #### C MP #### [facility] [address] [address] [address] Hayder Howell Globulin (S) [Mass/Vol] 3.1 g/dL Normal [facility] Comment on above: Performed By: #### C MP #### [facility] [address] [address] [address] Hayder Howell Glucose [Mass/Vol] 172 mg/dL Critically high 74-106 [facility] Comment on above: Performed By: #### C MP #### [facility] [address] [address] [address] Hayder Howell Potassium [Moles/Vol] 3.7 mmol/L Normal 3.5-5.1 [facility] Comment on above: Performed By: #### C MP #### [facility] [address] [place] [address] Dr. Hayder Howell Protein [Mass/Vol] 6.1 g/dL Critically low 6.4-8.2 [facility] Comment on above: Performed By: #### C MP #### [facility] [address] [address] [address] Hayder Howell Sodium [Moles/Vol] 139 mmol/L Normal 136-145 [facility] Comment on above: Performed By: #### C MP #### [facility] [address] [place] [address] Dr. Hayder Howell Urea nitrogen [Mass/Vol] 13.0 mg/dL Normal 7.0-18.0 [facility] Comment on above: Performed By: #### C MP #### [facility] [address] [place] [address] Dr. Hayder Howell Urea nitrogen/Creatinin e [Mass ratio] 18.3 mg/mg Normal [facility] Comment on above: Performed By: #### C MP #### [facility] [address] [place] [address] Dr. Hayder Howell URINE MICROSCOPIC ONLYon BACTERIA NONE SEEN Normal NONE SEEN [facility] Comment on above: Performed By: #### U MICRO, ERUR #### [facility] [address] [place] [address] Dr. Hayder Howell Bacteria identified Cx Nom (U) NOT INDICATED Normal [facility] Comment on above: Performed By: #### U MICRO, ERUR #### [facility] [address] [place] [address] Dr. Hayder Howell CAST NONE SEEN Normal NONE SEEN [facility] Comment on above: Performed By: #### U MICRO, ERUR #### [facility] [address] [place] [address] Dr. Hayder Howell Crystals LM Nom (Urine sed) NONE SEEN Normal NONE SEEN [facility] Comment on above: Performed By: #### U MICRO, ERUR #### [facility] [address] [place] [address] Dr. Hayder Howell Epithelial cells LM Ql (Urine sed) RARE Normal NONE SEEN /RARE [facility] Comment on above: Performed By: #### U MICRO, ERUR #### [facility] [address] [place] [address] Dr. Hayder Howell MUCOUS NONE SEEN Normal NONE SEEN [facility] Comment on above: Performed By: #### U MICRO, ERUR #### [facility] [address] [address] [address] Hayder Howell RBC 0-2 Normal 0-2 [facility] Comment on above: Performed By: #### U MICRO, ERUR #### [facility] [address] [address] [address] Hayder Howell WBC 0-2 Abnormal NONE SEEN [facility] Comment on above: Performed By: #### U MICRO, ERUR #### [facility] [address] [address] [address] Hayder Howell XR RIBS BIL_PA CH 4V OR GRon 12-01-2021 XR RIBS BIL_PA CH 4V OR GR EXAMINATION: XR RIBS BIL_PA CH 4V OR GR HISTORY: Pain COMPARISON: No relevant comparison available. FINDINGS: LUNGS: Low lung volumes. The lungs are clear of focal infiltrate PLEURA: No pneumothorax, effusion, or pleural thickening. MEDIASTINUM: No visible mass or adenopathy. CARDIAC: No cardiomegaly or cardiac silhouette abnormality. RIBS: Sclerosis of the right lateral ninth rib, subacute or chronic fracture best seen on image #3. Contour deformity of the left posterior fifth and sixth ribs OTHER: Aortic atherosclerosis IMPRESSION: Clear lungs Acute fractures left lateral fifth and sixth ribs with no pneumothorax Electronically authenticated by: DEBBI GUPTA Date: 2021-12-01 09:59 Normal [facility] Encounters Encounter Date Encounter Type Care Provider Facility Start: 08-08-2023 End: 08-08-2023 ambulatory ANYI HOPSON Not Available Start: 08-01-2023 Telephone encounter Anyi calvin [employer]ING [employer]IST Work Phone: [facility] Comment on above: Lab Orders Start: 01-24-2023 Patient encounter status Anyi Hopson EXPERIENCE PLANNING STRATEGIST Work Phone: [facility] Start: 06-09-2022 End: 06-10-2022 ambulatory ANYI HOPSON Facility: Start: 01-06-2022 End: 01-07-2022 ambulatory NONE LISTED REQUEST Facility: Start: 01-01-2022 End: 01-01-2022 ambulatory Charlee Shields Other [email or web address] Other Start: 01-01-2022 Telephone encounter Charlee Shields [facility] Start: 12-29-2021 End: 12-29-2021 ambulatory Collette Barkley Other [email or web address] Other Start: 12-29-2021 Postop follow up vis it related to original px Collette Barkley [facility] Start: 12-08-2021 End: 12-09-2021 ambulatory COLLETTE BARKLEY [facility] [employer] Other Start: 12-08-2021 [facility] visit new patient Collette Barkley [facility] [place] Start: 12-01-2021 End: 12-01-[address] NONE LISTED REQUEST Facility: Plan of Treatment Date Care Activity Detail Author Start: 10-17-2023 End: 10-17-2023 Patient encounter procedure 10/17/2023 1:00 PM EDT Office Visit [facility] [address] [facility] [address] [place] [address] Errol Nickerson MD [address] [facility] [address] [address] [facility] Start: 08-08-2023 End: 08-08-2023 Patient encounter procedure 08/08/2023 11:00 AM EST Office Visit [facility] [address] [facility] [address] [place] [id number] Anyi Hopson [employer]PERIENCE PLANNING STRATEGIST [address] [facility] [address] [place] [address] [facility] Start: 08-01-2023 End: 08-01-2024 Calcium [Mass/volume] in Serum or Plasma Calcium Lab Routine Age-related osteoporosis without current pathological fracture (CMS/HCC) Expected: 08/01/2023 (Approximate), Expires: 08/01/2024 [facility] Work Phone: Comment on above: Expected: 08/01/2023 (Approximate), Expires: 08/01/2024 Start: 03-04-2023 Influenza vaccination Influenza Vacc ine (#1) [facility] Immunizations Immunization Date Immunization Notes Care Provider Fa pabloty 04-10-2021 influenza virus vacc ine, unspecified formulation Anyi Hopson EXPERIENCE PLANNING STRATEGIST Work Phone: [facility] 12-08-2020 pneumococcal polysaccharide vaccine, 23 valent Anyi Jose EXPERIENCE PLANNING STRATEGIST Work Phone: [facility] 08-05-2020 influenza, injectabl e, quadrivalent, preservative free Anyi Jose EXPERIENCE PLANNING STRATEGIST Work Phone: [facility] Payers Date Payer Category Payer Managed Care O (unspecified) [employer] [id number] 2001-Present [address] [place] [address] O [id number] 1959 Private Health Insurance [id number] 1959 Self-pay 1940 Unknown [id number] 1940 Unknown [id number] 1942 Unknown [id number] 1942 Unknown [id number] Unknown [id number] Social History Date Type Detail Facility Start: 03-28-2023 Sex Assigned At [facility] [employer] Other Start: 01-12-2023 Tobacco smoking status [facility] Ex-smoker [facility] End: 07-04-1972 History of tobacco use Current smoker [facility] End: 07-04-1972 History of tobacco use Cigarette Smoker [facility] Start: 01-12-2023 Tobacco use and exposure Smokeless tobacco non-user [facility] Start: 07-22-2023 Alcohol intake Ex-drinker (finding) [facility] Start: 03-28-2023 History of Social function [facility] Start: 01-12-2023 Alcohol Comment stopped drinking 198 0s? [facility] Start: 1940 Sex Assigned At Male [facility] Start: 03-28-2023 Gender identity Identifies as male gender (finding) [facility] Medical Equipment Procedure Code Equipment Code Equipment Origin al Text Equipment Identifier Dates BD Pen Needle Na no U/F 32G X 4 MM [facility] [id number] Start: 12-15-2022 Clinical Notes 12-01-2021 to 08-05-2023 Telephone Encounter - Helen Tamayo - 08/05/2023 11:14 AM ESTTelephone Encounter - Helen Tamayo - 08/05/2023 11:14 AM ESTTelephone Encounter - Helen Tamayo - 08/05/2023 11:06 AM EST Note Date & Type Note Facility 08-05-2023 Telephone encounter Note Form atting of this note might be different from the original. Patient just stopped in to [facility] and I printed the signed order for him to take back to [facility] for his lab. [facility] 08-05-2023 Miscellaneous Notes Formattin g of this note might be different from the original. Patient just stopped in to [facility] and I printed the signed order for him to take back to [facility] for his lab. Patient called and stated he is at [facility] for calcium lab since he is to have a Prolia shot Tuesday, but [facility] doesn't have the order and he would like us to refax it. Patient's call back is [phone]. Please advise, thank you documented in this encounter [facility] 08-05-2023 Telephone encounter Note Form atting of this note might be different from the original. Patient called and stated he is at [facility] for calcium lab since he is to have a Prolia shot Tuesday, but [facility] doesn't have the order and he would like us to refax it. Patient's call back is [phone]. Please advise, thank you [facility] 12-29-2021 Evaluation note Encounter Date Diagnosis Assessment Notes Dec, Closed fracture of olecranon process of left ulna with routine healing, subsequent encounter (ICD-10 - S52.022D) Radiographs reviewed with patient today. Discussed with patient to continue to wear splint and use sling for protection when out of the home. Discussed with patient he can progress to range of motion exercises. [email or web address] Other 06-08-2022 NotePROCEDURE: XR ELBOW LT 2V COMPARISON: 12/01/2021 HISTORY: Closed fracture of proximal end of left ulna FINDINGS: Limited lateral only projection with a posterior fiberglass splint demonstrates a complex proximal ulnar fracture. Reduction in angulation is observed. No dislocation on the lateral projection. IMPRESSION: Limited lateral only projection demonstrating interval reduction of a complex proximal ulnar fracture Electronically authenticated by: DEBBI GUPTA Date: 2021-12-09 07:01[facility]06-07-2022 Evaluation note* Encounter Date Diagnosis Assessment Notes Treatment Notes Treatment Clinical Notes Dec, Closed fracture of olecranon process of left ulna, initial encounter (ICD-10 - S52.022A) The patient has suffered a minimally displaced olecranon fracture. This fracture appeas stable and we will treat this non-operatively. We have recommended to continue to wear splint and use of a sling for comfort. We discussed and demonstrated gentle passive and active elbow motion exercise to be performed multiple times per day. We advised of no weight bearing, strenuous use or lifting with this arm. We discussed that this injury may take six weeks to obtain early healing and kristy require months of motion and strength exercise afterwards. We discussed that this injury can lead to custodial elbow pain and stiffness. Discussed with patient to call if he would like home health Since there is not significant displacement and he states he is very limited with normal activities in general I think that nonoperative treatment will be adequate. [email or web address] Other 05-31-2022 NotePROCEDURE: XR ELBOW LT 2V COMPARISON: Same day HISTORY: Pain FINDINGS: BONES:Acute complex intra-articular fracture of the proximal ulna. The fracture fragments are distracted up to 6 mm at the articular surface with displacement of 3.7 mm on the lateral projection. The radial head and distal humerus are grossly intact on these lateral and oblique projections SOFT TISSUES:Moderate diffuse soft tissue swelling EFFUSION:Joint effusion OTHER: Atherosclerosis IMPRESSION: Complex intra-articular proximal ulna fracture Electronically authenticated by: DEBBI GUTPA Date: 2021-12-01 11:06[facility]05-31-2022 NotePROCEDURE: XR ELBOW LT MIN 3 VIEWS COMPARISON: None. HISTORY: Pain FINDINGS: BONES:Acute complex fracture of the proximal ulna extending to the olecranon process into the articular surface with displacement up to 2 mm. No definite dislocation SOFT TISSUES:Moderate diffuse soft tissue swelling EFFUSION:Suspected joint effusion OTHER: Limited nonstandard nonorthogonal projections IMPRESSION: Acute complex proximal ulnar fracture Electronically authenticated by: DEBBI GUPTA Date: 2021-12-01 10:01[facility]05-31-2022 NotePROCEDURE: XR HIP LT 2 3V W PELVIS COMPARISON: None. HISTORY: Pain FINDINGS: BONES:No acute fracture or dislocation. 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 Posterior decompression and transpedicular fusion of the lumbar spine. SOFT TISSUES:Negative. No visible soft tissue swelling. EFFUSION:None visible. OTHER: Prior surgery with multiple surgical anchors. Moderate atherosclerosis. IMPRESSION: No acute fracture Electronically authenticated by: DEBBI GUPTA Date: 2021-12-01 09:56[facility] note[facility] InformationNort [employer] Other Evaluation note* Diagnosis Age-related osteoporosis without current pathological fracture (CMS/HCC)- Primary Age-related osteoporosis without current pathological fracture (CMS/HCC)- Primary [facility] - Reported* Type Description Date Medical History hypertension Medical History hyperlipidemia [email or web address] Other Summary Purpose Family History No Family History Records FoundNo Family History Records FoundNo Family History Records Found Advance Directives No Advanced Directives Records FoundNo Advanced Directives Records FoundNo Advanced Directives Records Found Additional Source Comments REASON FOR VISIT (unrecogniz ed section and content) Reason Onset Date Comments Lab Orders 08/01/2023 (unrecognized sect ion and content) No Status Records FoundNo Status Records FoundNo Status Records Found INFORMATION SOURCE (unrecogn ized section and content) DATE CREATED AUTHOR 01/09/2022 [facility] DATE CREATED AUTHOR AUTHOR'S ORGANIZ ATION 06/12/2022 [facility] DATE CREATED AUTHOR AUTHOR'S ORGANIZ ATION 08/09/2023 [facility] FOR RECORDS PERTAINING TO PATIENTS WHO ARE OR HAVE BEEN ENROLLED IN A CHEMICAL DEPENDENCY/SUBSTANCEABUSE PROGRAM, SOME INFORMATION MAY BE OMITTED. This clinical summary was aggregated from multiple sources. Caution should be exercised in using it in the provision of clinical care. This summary normalizes information from multiple sources, and as a consequence, information in this document may materially change the coding, format and clinical context of patient data. In addition, data may be omitted in some cases. CLINICAL DECISIONS SHOULD BE BASED ON THE PRIMARY CLINICAL RECORDS. [employer] provides no warranty or guarantee of the accuracy or completeness of information in this document.
--- NOTE | 2023-12-03 11:47 | ED_ITS ---
HPI - Male Genitourinary General Chief complaint: Urogenital-Male Stated complaint: URINARY TROUBLES Time Seen by Provider: 12/03/23 11:40 Source: patient Mode of arrival: walk-in Limitations: no limitations History of Present Illness HPI Narrative: This patient is here with reporting blood in his urine last night. He says it is also cloudy. He has not been running a fever. He has not had any previous kidney stones or kidney infections. He denied any knowledge of prostate problems but he is on Flomax and he said his urologist has advised it!. He has not had prostate surgery. He does not have any nausea vomiting or fever shakes or chills. He just noticed the blood in his urine last night. [place] but usually lives in [place] during the cold months I believe. He is aching any antibiotics. He does take blood thinners for coronary artery disease. He does not have any active bleeding. He also has myasthenia gravis and takes steroids for that. Please see his list on the nursing record for other medications. Related Data Allergies Allergy/AdvReac Type Severity Reaction Status Date / Time No Known Drug Allergies Allergy Verified 12/03/23 11:31 Exam Narrative Exam Narrative: Awake alert pleasant no apparent distress moves about comfortably. He did void for us. We will do a postvoid residual urine. He has no tenderness to percussion over the flank area. His skin is warm dry mucous membranes are moist and pink there is no evidence of pallor or anemia. He does not have any suprapubic discomfort at this time. Urinalysis is pending Constitutional Vital Signs, click to edit/add: Last Vital Signs Temp 98.3 F 12/03/23 11:27 Pulse 72 12/03/23 11:27 Resp 16 12/03/23 11:27 BP 126/74 12/03/23 11:27 Pulse Ox 99 12/03/23 11:27 O2 Del Method Room Air 12/03/23 11:27 Course Vital Signs Vital signs: Vital Signs Temperature 98.3 F 12/03/23 11:27 Pulse Rate 72 12/03/23 11:27 Respiratory Rate 16 12/03/23 11:27 Blood Pressure 126/74 12/03/23 11:27 Pulse Oximetry 99 12/03/23 11:27 Oxygen Delivery Method Room Air 12/03/23 11:27 Temperature 98.3 F 12/03/23 11:27 Pulse Rate 72 12/03/23 11:27 Respiratory Rate 16 12/03/23 11:27 Blood Pressure 126/74 12/03/23 11:27 Pulse Oximetry 99 12/03/23 11:27 Oxygen Delivery Method Room Air 12/03/23 11:27 MDM - Male Genitourinary MDM Narrative Medical decision making narrative: Patient's postvoid residual urine is 0 by our bladder scanning here. The microscopic urinalysis shows hematuria and leukocyte Estrace positive. He will be placed on Cipro. He can follow-up with primary care doctor to recheck the urine when he is completed therapy Lab Data Labs: Lab Results 12/03/23 Range/Units 11:40 Urine Color Yellow (YELLOW) Urine Clarity Clear (CLEAR) Urine pH 5.5 (5.0-9.0) Ur Specific [place] 1.025 (1.005-1.025) Urine Protein Trace (NEG/TRACE) mg/dL Urine Glucose (UA) >=1000 A (NEGATIVE) mg/dL Urine Ketones Negative (NEGATIVE) mg/dL Urine Occult Blood Large A (NEGATIVE) Urine Nitrite Positive A (NEGATIVE) Urine Bilirubin Negative (NEGATIVE) Urine Urobilinogen 0.2 (0.2-1.0) EU/dL Ur Leukocyte Esterase Trace A (NEGATIVE) Discharge Plan Discharge Stand Alone Forms: Portal Instructions Chief Complaint: Urogenital-Male Clinical Impression: Hematuria, Acute UTI Patient Disposition: Home, Self-Care Time of Disposition Decision: 12:31 Print Language: Namibian Additional Instructions: Drink additional fluids. Begin Cipro/follow-up with your primary care doctor to recheck your urine after you complete the antibiotics Referrals: Physician,Non-Staff, [Primary Care Provider] - 1 week
[2023-12-03 12:07] LABS: Bilirubin Urine NEGATIVE (NEGATIVE); Blood Urine LARGE (NEGATIVE); Clarity Urine CLEAR (CLEAR); Color Urine YELLOW (YELLOW); Glucose Urine UA >=1000 mg/dL (NEGATIVE); Ketones Urine NEGATIVE (NEGATIVE); Leukocyte Esterase Urine TRACE (NEGATIVE); Nitrite Urine POSITIVE (NEGATIVE); Protein Urine TRACE mg/dL (NEG/TRACE); Specific Gravity Urine 1.025 (1.005-1.025); Urobilinogen Urine 0.2 EU/dL (0.2-1.0); pH Urine 5.5 (5.0-9.0)
== END 2023-12-03 12:49 | disposition home or self-care (01) ==
PROVIDERS: Emergency Provider Emergency Medicine Emergency Medical Services
DX: N39.0 Urinary tract infection, site not specified (principal); R31.9 Hematuria, unspecified; I25.10 Atherosclerotic heart disease of native coronary artery without angina pectoris; G70.00 Myasthenia gravis without (acute) exacerbation; Z79.01 Long term (current) use of anticoagulants; Z79.52 Long term (current) use of systemic steroids
CPT/HCPCS: 81003; 99283

== ENCOUNTER 2023-12-18 11:27 | Inpatient (IN) | payer OTHER, SELFPAY ==
[2023-12-18] VITALS (33 sets, daily range): BP systolic 108–159; BP diastolic 58–76; PULSE 68–93; TEMP 36.6–38.2; O2SAT 91–97; BMI 30.8; BMI 30.2
--- OUTSIDE RECORDS SUMMARY | 2023-12-18 11:34 | XMS_ITS | CCD ---
Author Organization [facility] ion [facility] Care Team Providers Care Child Psychiatrist Name Role Phone Collette Barkley Unavailable Charlee [...] (1 source) ceFAZolin Drug Allergy 11-25-2022 Other [facility] Work Phone: (1 source) Sulfonamides (Antibiotic) Drug Allergy 02-04-2017 Rash [facility] Medications Current Medications Medication Drug Class(es) [...] Coronary atherosclerosis; Translations: [Atherosclerotic heart disease of [place] coronary artery without angina pectoris] Onset: 12-18-2014 [...] 04-15-2021 01-24-2023 Episodic Other aftercare (1 source) 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; 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] Onset: 12-07-2021 Episodic Other aftercare (1 source) Other snf (current) drug therapy; Translations: [OTH MCC CURRENT DRUG THERAPY] Onset: 12-07-2021 Episodic Other aftercare (1 source) retirement (current) use of insulin; 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 Hayder Howell XR elbow LT 2Von 12-29-2021 XR elbow LT 2V [facility] [place] [place] [address] XRay Report Signed Patient: Jamal Arrieta V MR#: [id number] : 1940 Acct:[id number] Age/Sex: 81 / M ADM Date: 12/29/21 Loc: SOXD Room: Type: [facility] Attending Dr: Collette Barkley MD Copies to: [...] Zhao Jr., D.O.12/29/2021 11:31 AM Dictation Location: [place] [address] Transcribed By: [facility] 12/29/21 1131 Dictated By: Sudeep Zhao Jr, DO 12/29/21 1130 Signed By: 12/29/21 1131 Normal [facility] CBC AUTO DIFFon 12-01-2021 BASO # 0.0 103/ul Normal 0.0-0.1 [facility] Comment on above: Performed By: #### C BC #### [facility] [address] [address] [address] Hayder Howell Basophils/100 WBC (Bld) 0.3 % Normal 0.2-2.0 [facility] Comment on above: Performed By: #### C BC #### [facility] [address] [address] [address] Hayder Howell EO # 0.0 103/ul Normal 0.0-0.7 [facility] Comment on above: Performed By: #### C BC #### [facility] [address] [address] [address] Hayder Howell Eosinophils/100 WBC (Bld) 0.3 % Critically low 0.9-7.0 [facility] Comment on above: Performed By: #### C BC #### [facility] [address] [place] [address] Dr. Hayder Howell Erythrocyte distribution width (RBC) [Ratio] 19.5 % Critically high 11.0-15.0 [facility] Comment on above: Performed By: #### C BC #### [facility] [address] [place] [address] Dr. Hayder Howell Hematocrit (Bld) [Volume fraction] 30.3 % Critically low 42.0-54.0 [facility] Comment on above: Performed By: #### C BC #### [facility] [address] [place] [address] Dr. Hayder Howell Hemoglobin (Bld) [Mass/Vol] 9.0 g/dL Critically low 14.0-18.0 [facility] Comment on above: Performed By: #### C BC #### [facility] [address] [place] [address] Dr. Hayder Howell IG # 0.02 10e3/ul Normal 0.00-0.03 [facility] Comment on above: Performed By: #### C BC #### [facility] [address] [place] [address] Dr. Hayder Howell IG % 0.3 % Normal 0.0-0.5 [facility] Comment on above: Performed By: #### C BC #### [facility] [address] [place] [address] Dr. Hayder Howell LYMPH # 1.2 103/ul Normal 1.2-3.8 [facility] Comment on above: Performed By: #### C BC #### [facility] [address] [place] [address] Dr. Hayder Howell Lymphocytes/100 WBC (Bld) 15.9 % Critically low 20.5-60.0 [facility] Comment on above: Performed By: #### C BC #### [facility] [address] [place] [address] Dr. Hayder Howell MANUAL DIFF REQ NO Normal [facility] Comment on above: Performed By: #### C BC #### [facility] [address] [place] [address] Dr. Hayder Howell MCH (RBC) [Entitic mass] 25.5 pg Critically low 25.9-34.0 [facility] Comment on above: Performed By: #### C BC #### [facility] [address] [address] [address] Hayder Howell MCHC (RBC) [Mass/Vol] 29.7 g/dL Critically low 29.9-35.2 [facility] Comment on above: Performed By: #### C BC #### [facility] [address] [place] [address] Dr. Hayder Howell MCV (RBC) [Entitic vol] 85.8 fL Normal 80.0-94.0 [facility] Comment on above: Performed By: #### C BC #### [facility] [address] [place] [address] Dr. Hayder Howell MONO # 0.9 103/ul Critically high 0.3-0.8 [facility] Comment on above: Performed By: #### C BC #### [facility] [address] [place] [address] Dr. Hayder Howell Monocytes/100 WBC (Bld) 11.9 % Normal 1.7-12.0 [facility] Comment on above: Performed By: #### C BC #### [facility] [address] [place] [address] Dr. Hayder Howell NEUT # 5.3 103/ul Normal 1.4-6.5 [facility] Comment on above: Performed By: #### C BC #### [facility] [address] [place] [address] Dr. Hayder Howell Neutrophils/100 WBC (Bld) 71.3 % Normal 43.0-75.0 [facility] Comment on above: Performed By: #### C BC #### [facility] [address] [place] [address] Dr. Hayder Howell Platelet mean volume (Bld) [Entitic vol] 8.8 fL Critically low 9.5-13.5 [facility] Comment on above: Performed By: #### C BC #### [facility] [address] [place] [address] Dr. Hayder Howell PLT 225 103/ul Normal 150-450 [facility] Comment on above: Performed By: #### C BC #### [facility] [address] [place] [address] Dr. Hayder Howell RBC 3.53 106/ul Critically low 4.70-6.10 [facility] Comment on above: Performed By: #### C BC #### [facility] [address] [address] [address] Hayder Howell WBC 7.4 103/ul Normal 4.0-11.0 [facility] Comment on above: Performed By: #### C BC #### [facility] [address] [place] [address] Dr. Hayder Howell ER URINE PROFILEon 2 Bilirubin Ql (U) Negative Normal NEGATIVE [facility] Comment on above: Performed By: #### U MICRO, ERUR #### [facility] [address] [place] [address] Dr. Hayder Howell Clarity (U) CLEAR Normal CLEAR [facility] Comment on above: Performed By: #### U MICRO, ERUR #### [facility] [address] [place] [address] Dr. Hayder Howell Color (U) YELLOW Normal YELLOW [facility] Comment on above: Performed By: #### U MICRO, ERUR #### [facility] [address] [place] [address] Dr. Hayder HAMILTON A micrscopic examination will be performed if indicated. Normal [facility] Comment on above: Performed By: #### U MICRO, ERUR #### [facility] [address] [place] [address] Dr. Hayder Howell Glucose Ql (U) Negative Normal NEGATIVE [facility] Comment on above: Performed By: #### U MICRO, ERUR #### [facility] [address] [place] [address] Dr. Hayder Howell Hemoglobin Ql (U) Negative Normal NEGATIVE [facility] Comment on above: Performed By: #### U MICRO, ERUR #### [facility] [address] [address] [address] Hayder Howell Ketones Ql (U) Negative Normal NEGATIVE [facility] Comment on above: Performed By: #### U MICRO, ERUR #### [facility] [address] [place] [address] Dr. Hayder Howell LEUKOCYTES TRACE Abnormal NEGATIVE [facility] Comment on above: Performed By: #### U MICRO, ERUR #### [facility] [address] [address] [address] Hayder Howell Nitrite Ql (U) Negative Normal NEGATIVE [facility] Comment on above: Performed By: #### U MICRO, ERUR #### [facility] [address] [place] [address] Dr. Hayder Howell pH (U) 5.0 [pH] Normal 5-9 [facility] Comment on above: Performed By: #### U MICRO, ERUR #### [facility] [address] [place] [address] Dr. Hayder Howell SPEC GRAVITY 1.025 Normal 1.005-<=1.025 [facility] Comment on above: Performed By: #### U MICRO, ERUR #### [facility] [address] [place] [address] Dr. Hayder Howell UA PROTEIN Negative Normal NEGATIVE/ TRACE [facility] Comment on above: Performed By: #### U MICRO, ERUR #### [facility] [address] [address] [address] Hayder Howell UR MICRO IND INDICATED Normal [facility] Comment on above: Performed By: #### U MICRO, ERUR #### [facility] [address] [place] [address] Dr. Hayder Howell Urobilinogen Qn (U) 0.2 {[place]'U}/dL Normal 0.2 - 1.0 [facility] Comment on above: Performed By: #### U MICRO, ERUR #### [facility] [address] [place] [address] Dr. Hayder Howell PROF 14(COMP METB)on 022 Albumin [Mass/Vol] 3.0 g/dL Critically low 3.4-5.0 Th e [facility] Comment on above: Performed By: #### C MP #### [facility] [address] [place] [address] Dr. Hayder Howell Albumin/Globulin [Mass ratio] 1.0 {ratio} Normal [facility] Comment on above: Performed By: #### C MP #### [facility] [address] [place] [address] Dr. Hayder Howell ALP [Catalytic activity/Vol] 61 U/L Normal 46-116 [facility] Comment on above: Performed By: #### C MP #### [facility] [address] [place] [address] Dr. Hayder Howell ALT [Catalytic activity/Vol] 41 U/L Normal 16-63 [facility] Comment on above: Performed By: #### C MP #### [facility] [address] [place] [address] Dr. Hayder Howell Anion gap [Moles/Vol] 9.4 mmol/L Normal [facility] Comment on above: Performed By: #### C MP #### [facility] [address] [place] [address] Dr. Hayder Howell AST [Catalytic activity/Vol] 20 U/L Normal 15-37 [facility] Comment on above: Performed By: #### C MP #### [facility] [address] [place] [address] Dr. Hayder Howell Bilirubin [Mass/Vol] 1.0 mg/dL Normal 0.2-1.0 [facility] Comment on above: Performed By: #### C MP #### [facility] [address] [place] [address] Dr. Hayder Howell Calcium [Mass/Vol] 9.6 mg/dL Normal 8.5-10.1 [facility] Comment on above: Performed By: #### C MP #### [facility] [address] [place] [address] Dr. Hayder Howell Chloride [Moles/Vol] 106 mmol/L Normal 98-107 [facility] Comment on above: Performed By: #### C MP #### [facility] [address] [address] [address] Hayder Howell CO2 [Moles/Vol] 27.3 mmol/L Normal 21.0-32.0 [facility] Comment on above: Performed By: #### C MP #### [facility] [address] [address] [address] Hayder Howell Creatinine [Mass/Vol] 0.71 mg/dL Normal 0.70-1.30 [facility] Comment on above: Performed By: #### C MP #### [facility] [address] [address] [address] Hayder Howell EGFR-AF [place] >60 Normal >=60 [facility] Comment on above: Performed By: #### C MP #### [facility] [address] [address] [address] Hayder Howell EGFR-NON AF [place] >60 Normal >=60 [facility] Comment on above: Performed By: #### C MP #### [facility] [address] [address] [address] Hayder Howell Globulin (S) [Mass/Vol] 3.1 g/dL Normal [facility] Comment on above: Performed By: #### C MP #### [facility] [address] [address] [address] Hayder Howell Glucose [Mass/Vol] 172 mg/dL Critically high 74-106 T [facility] Comment on above: Performed By: #### C MP #### [facility] [address] [address] [address] Hayder Howell Potassium [Moles/Vol] 3.7 mmol/L Normal 3.5-5.1 [facility] Comment on above: Performed By: #### C MP #### [facility] [address] [place] [address] Dr. Hayder Howell Protein [Mass/Vol] 6.1 g/dL Critically low 6.4-8.[address] [facility] Comment on above: Performed By: #### C MP #### [facility] [address] [address] [address] Hayder Howell Sodium [Moles/Vol] 139 mmol/L Normal 136-145 [facility] Comment on above: Performed By: #### C MP #### [facility] [address] [place] [address] Dr. Hayder Howell Urea nitrogen [Mass/Vol] 13.0 mg/dL Normal 7.0-18.0 [facility] Comment on above: Performed By: #### C MP #### [facility] [address] [place] [address] Dr. Hayder Howell Urea nitrogen/Creatinin e [Mass ratio] 18.3 mg/mg Normal [facility] Comment on above: Performed By: #### C MP #### [facility] [address] [place] [address] Dr. Hayder Howell URINE MICROSCOPIC ONLYon BACTERIA NONE SEEN Normal NONE SEEN [facility] Comment on above: Performed By: #### U MICRO, ERUR #### [facility] [address] [place] [address] Dr. Hayder Howell Bacteria identified Cx Nom (U) NOT INDICATED Normal [facility] Comment on above: Performed By: #### U MICRO, ERUR #### [facility] [address] [place] [address] Dr. Hayder Howell CAST NONE SEEN Normal NONE SEEN [facility] Comment on above: Performed By: #### U MICRO, ERUR #### [facility] [address] [place] [address] Dr. Hayder Howell Crystals LM Nom (Urine sed) NONE SEEN Normal NONE SEEN [facility] Comment on above: Performed By: #### U MICRO, ERUR #### [facility] [address] [place] [address] Dr. Hayder Howell Epithelial cells LM Ql (Urine sed) RARE Normal NONE SEEN /RARE [facility] Comment on above: Performed By: #### U MICRO, ERUR #### [facility] [address] [place] [address] Dr. Hayder Howell MUCOUS NONE SEEN Normal NONE SEEN [facility] Comment on above: Performed By: #### U MICRO, ERUR #### [facility] [address] [address] [address] Hayder Howell RBC 0-2 Normal 0-2 [facility] Comment on above: Performed By: #### U MICRO, ERUR #### [facility] [address] [address] [address] Hayder Howell WBC 0-2 Abnormal NONE SEEN [facility] Comment on above: Performed By: #### U MICRO, ERUR #### [facility] [address] [address] [address] Hayder Howell XR RIBS BIL_PA CH [...] DEBBI GUPTA Date: 2021-12-01 09:59 Normal [facility] Encounters Encounter Date Encounter Type Care Provider Facility Start: 08-08-2023 End: 08-08-2023 ambulatory ANYI HOPSON Not Available Start: 08-01-2023 Telephone encounter Anyi calvin [employer] Work Phone: [facility] Comment on above: Lab Orders Start: 01-24-2023 Patient encounter status Anyi Hopson [employer] Work Phone: [facility] Start: 06-09-2022 End: 06-10-2022 ambulatory ANYI HOPSON Facility: Start: 01-06-2022 End: 01-07-2022 ambulatory NONE LISTED REQUEST Facility: Start: 01-01-2022 End: 01-01-2022 ambulatory Charlee Shields Other [facility] Other Start: 01-01-2022 Telephone encounter Charlee Shields [facility] Start: 12-29-2021 End: 12-29-2021 ambulatory Collette Barkley Other [facility] Other Start: 12-29-2021 Postop follow up vis it related to original px Collette Barkley [facility] Start: 12-08-2021 End: 12-09-2021 ambulatory COLLETTE BARKLEY [facility] STARFACE Other Start: 12-08-2021 [facility] visit new patient Collette Barkley [facility] [place] Start: 12-01-2021 End: 12-01-[address] NONE LISTED REQUEST Facility: Plan of Treatment Date Care Activity Detail Author Start: 10-17-2023 End: 10-17-2023 Patient encounter procedure 10/17/2023 1:00 PM EDT Office Visit [facility] [address] [facility] [address] [place] [address] Errol Nickerson MD [address] [facility] [address] [address] [facility] Start: 08-08-2023 End: 08-08-2023 Patient encounter procedure 08/08/2023 11:00 AM EST Office Visit [facility] [address] [facility] [address] [place] [id number] Anyi Hopson [employer] [address] [facility] [address] [place] [address] [facility] Start: 08-01-2023 End: 08-01-2024 Calcium [Mass/volume] in Serum or Plasma Calcium Lab Routine Age-related osteoporosis without current pathological fracture (CMS/HCC) Expected: 08/01/2023 (Approximate), Expires: 08/01/2024 [facility] Work Phone: Comment on above: Expected: 08/01/2023 (Approximate), Expires: 08/01/2024 Start: 03-04-2023 Influenza vaccination Influenza Vacc ine (#1) [facility] Immunizations Immunization Date Immunization Notes Care Provider Fa pabloty 04-10-2021 influenza virus vacc ine, unspecified formulation Anyi Hopson [employer] Work Phone: [facility] 12-08-2020 pneumococcal polysaccharide vaccine, 23 valent Anyi Jose [employer] Work Phone: [facility] 08-05-2020 influenza, injectabl e, quadrivalent, preservative free Anyi Jose [employer] Work Phone: [facility] Payers Date Payer Category Payer Managed Care O (unspecified) [employer] [id number] 2001-Present [address] [place] [address] O [id number] 1959 Private Health Insurance [id number] 1957 Self-pay 1940 Unknown [id number] 1940 Unknown [id number] 1940 Unknown [id number] 1940 Unknown [id number] Unknown [id number] Social History Date Type Detail Facility Start: 03-28-2023 Sex Assigned At [facility] Other Start: 01-12-2023 Tobacco smoking status [facility] Ex-smoker [facility] End: 07-04-1972 History of tobacco use Current smoker [facility] End: 07-04-1972 History of tobacco use Cigarette Smoker [facility] Start: 01-12-2023 Tobacco use and exposure Smokeless tobacco non-user [facility] Start: 07-22-2023 Alcohol intake Ex-drinker (finding) [facility] Start: 03-28-2023 History of Social function [facility] Start: 01-12-2023 Alcohol Comment stopped drinking 198 0s? [facility] Start: 1940 Sex Assigned At Male [facility] Start: 03-28-2023 Gender identity Identifies as male gender (finding) [facility] Medical Equipment Procedure Code Equipment Code Equipment Origin al Text Equipment Identifier Dates BD Pen Needle Na no U/F 32G X 4 MM [facility] [id number] Start: 12-15-2022 Clinical Notes 12-01-2021 to 08-05-2023 [...] order for him to take back to [facility] for his lab. [facility] 08-05-2023 Miscellaneous Notes Formattin g of this note might be different from the original. Patient just stopped in to [facility] and I printed the signed order for him to take back to [facility] for his lab. Patient called and stated he is at [facility] for calcium lab since he is to have a Prolia shot Tuesday, but [facility] doesn't have the order and he would like us to refax it. Patient's call back is [phone]. Please advise, thank you documented in this encounter [facility] 08-05-2023 Telephone encounter Note Form atting of this note might be different from the original. Patient called and stated he is at [facility] for calcium lab since he is to have a Prolia shot Tuesday, but [facility] doesn't have the order and he would like us to refax it. Patient's call back is [phone]. Please advise, thank you [facility] 12-29-2021 Evaluation note Encounter Date Diagnosis Assessment Notes Dec, Closed fracture of olecranon process of left ulna with routine healing, subsequent encounter (ICD-10 - S52.022D) Radiographs reviewed with patient today. Discussed with patient to continue to wear splint and use sling for protection when out of the home. Discussed with patient he can progress to range of motion exercises. [facility] Other 06-08-2022 NotePROCEDURE: XR ELBOW LT 2V [...] Electronically authenticated by: DEBBI GUPTA Date: 2021-12-09 07:01[facility]06-07-2022 Evaluation note* Encounter Date Diagnosis Assessment [...] discussed that this injury can lead to snf elbow pain and stiffness. Discussed with patient to call if he would like home health Since there is not significant displacement and he states he is very limited with normal activities in general I think that nonoperative treatment will be adequate. [facility] Other 05-31-2022 NotePROCEDURE: XR ELBOW LT 2V [...] proximal ulna fracture Electronically authenticated by: DEBBI GUPTA Date: 2021-12-01 11:06[facility]05-31-2022 NotePROCEDURE: XR ELBOW LT MIN 3 [...] Electronically authenticated by: DEBBI GUPTA Date: 2021-12-01 10:01[facility]05-31-2022 NotePROCEDURE: XR HIP LT 2 3V [...] Electronically authenticated by: DEBBI GUPTA Date: 2021-12-01 09:56[facility] noteNo InformationNort Kik Other Evaluation note* Diagnosis Age-related osteoporosis without current pathological fracture (CMS/HCC)- Primary Age-related osteoporosis without current pathological fracture (CMS/HCC)- Primary documented in this encounter [facility] general Narrative - Reported* Type Description Date Medical History hypertension Medical History hyperlipidemia exoro system Other Summary Purpose Family History No Family [...] section and content) DATE CREATED AUTHOR 01/09/2022 [facility] DATE CREATED AUTHOR AUTHOR'S ORGANIZ ATION 06/12/2022 [facility] DATE CREATED AUTHOR AUTHOR'S ORGANIZ ATION 08/09/2023 [facility] FOR RECORDS PERTAINING TO PATIENTS WHO ARE [...] BE BASED ON THE PRIMARY CLINICAL RECORDS. [employer] provides no warranty or guarantee of the accuracy or completeness of information in this document.
--- NOTE | 2023-12-18 11:42 | ED.NAVMDI1 ---
HPI - Nausea/Vomiting/Diarrhea General Chief complaint: Abdominal Pain Stated complaint: DEHYDRATED AND VOMITING MEDICATIONS Time Seen by Provider: 12/18/23 11:32 Source: patient Mode of arrival: Wheelchair Limitations: no limitations History of Present Illness HPI Narrative: 83-year-old male presents for nausea vomiting and diarrhea which began last night. He states his diarrhea is watery and he was unable to get his pills down today because he was vomiting. His mouth feels dry. No fever or hematemesis or blood in his stool. He has not been around any ill people. He does not complain to me of abdominal pain or chest pain. Related Data Home Medications ?Medication ?Instructions ?Recorded ?Confirmed ascorbic acid (vitamin C) 500 mg 250 mg PO BID 12/18/23 12/18/23 tablet atorvastatin 80 mg tablet 80 mg PO BEDTIME 12/18/23 12/18/23 carvedilol 12.5 mg tablet 12.5 mg PO BID 12/18/23 12/18/23 empagliflozin 10 mg tablet 10 mg PO DAILY 12/18/23 12/18/23 (Jardiance) losartan 50 mg tablet 50 mg PO DAILY 12/18/23 12/18/23 nitroglycerin 0.4 mg sublingual 0.4 mg sublingual Q5M PRN chest 12/18/23 12/18/23 tablet pain pantoprazole 40 mg tablet,delayed 40 mg PO DAILY 12/18/23 12/18/23 release prednisone 10 mg tablet 10 mg PO DAILY 12/18/23 12/18/23 pyridostigmine bromide 180 mg 180 mg PO BID 12/18/23 12/18/23 tablet,extended release ranolazine 500 mg tablet,extended 500 mg PO Q12H 12/18/23 12/18/23 release,12 hr ravulizumab-cwvz 100 mg/mL mg IV .EVERY 2 MONTHS 12/18/23 intravenous solution (Ultomiris) tamsulosin 0.4 mg capsule 0.4 mg PO Q24H 12/18/23 12/18/23 ticagrelor 90 mg tablet (Brilinta) 90 mg PO Q12H 12/18/23 12/18/23 Allergies Allergy/AdvReac Type Severity Reaction Status Date / Time cefazolin [From [facility]] Allergy Intermediate Verified 12/18/23 11:36 Review of Systems ROS Narrative A ten point review of systems is negative except as noted above. PFSH PFSH Surgical History (Updated 12/18/23 @ 12:01 by Ana Schwartz) S/P small bowel resection ?Z90.49 - Acquired absence of other specified parts of digestive tract (ICD-10) H/O heart artery stent ?Z95.5 - Presence of coronary angioplasty implant and graft (ICD-10) Social History (Updated 12/18/23 @ 12:02 by Ana Schwartz) Within the past year, how often did you have a drink containing alcohol: never Within the past year, how often did you have six or more drinks on one occasion: never Score interpretation: A score less than 4 is consistent with normal alcohol consumption. Previous occupational history: [employer] Known occupational exposures/hazards: Yes Highest level of school completed/degree received: high school graduate Do you want help with school or training: No Exam Narrative Exam Narrative: Nurses note and vital signs reviewed and patient is not hypoxic. General: The patient appears well and in no apparent distress. Patient is resting comfortably on cart. Skin: Warm, dry, no pallor noted. There is no rash noted. Head: Normocephalic, atraumatic Eye: Normal conjunctiva, no drainage Ears, Nose, Mouth, and Throat: oral mucosa is somewhat dry. Nares patent. Cardiovascular: Regular Rate and Rhythm Respiratory: Patient is in no distress, no accessory muscle use, lungs are clear to auscultation, no wheezing, rales or rhonchi Back: non-tender GI: Soft and nontender Musculoskeletal: The patient has no evidence of calf tenderness, no pitting edema, symmetrical pulses noted bilaterally Neurological: A&O, normal speech Psychiatric: Cooperative Constitutional Vital Signs, click to edit/add: Last Vital Signs Temp 100.8 F H 12/18/23 15:05 Pulse 75 12/18/23 14:11 Resp 16 12/18/23 14:11 BP 141/66 12/18/23 14:00 Pulse Ox 96 12/18/23 14:11 O2 Del Method Room Air 12/18/23 11:46 Course Vital Signs Vital signs: Vital Signs Temperature 98.0 F 12/18/23 11:31 Pulse Rate 80 12/18/23 11:31 Respiratory Rate 18 12/18/23 11:31 Blood Pressure 125/59 12/18/23 11:31 Pulse Oximetry 95 12/18/23 11:31 Temperature 100.8 F H 12/18/23 15:05 Pulse Rate 75 12/18/23 14:11 Respiratory Rate 16 12/18/23 14:11 Blood Pressure 141/66 12/18/23 14:00 Pulse Oximetry 96 12/18/23 14:11 Oxygen Delivery Method Room Air 12/18/23 11:46 MDM - Nausea/Vomiting/Diarrhea MDM Narrative Medical decision making narrative: CT scan is essentially negative except for questionable enterocolitis. Patient appears to have a UTI. He was treated with Cipro last week and there were no cultures available. Blood cultures were obtained as well as a urine culture. Lactic acid and procalcitonin are pending. He was given IV antibiotics. I discussed antibiotics with Dr. Ybarra and she will make the decision on which antibiotic to be given since he was just on Cipro and is allergic to Ancef. He is hemodynamically stable and findings are discussed with the patient and his sister. Differential Diagnosis Differential diagnosis: Likely traveler's diarrhea, gastroenteritis, dehydration and other (UTI) Lab Data Attestation: I reviewed the patient's lab results. Labs: Lab Results 12/18/23 12/18/23 Range/Units 11:43 12:50 WBC 21.2 H (4.0-11.0) 10^3/uL RBC 4.33 L (4.70-6.10) 10^6/uL Hgb 12.9 L (14.0-18.0) g/dL Hct 41.5 L (42.0-54.0) % MCV 95.8 H (80.0-94.0) fL MCH 29.8 (25.9-34.0) pg MCHC 31.1 (29.9-35.2) g/dL RDW 18.4 H (11.0-15.0) % Plt Count 170 (150-450) 10^3/uL MPV 9.4 L (9.5-13.5) fL Seg Neuts % (Manual) 76.0 Band Neutrophils % 8.0 H (0-5) % Lymphocytes % (Manual) 5.0 L (20.5-60.0) % Monocytes % (Manual) 11.0 (1.7-12.0) % Eosinophils % (Manual) 0.0 L (0.9-7.0) % Basophils % (Manual) 0.0 L (0.2-2.0) % Neutrophils # (Manual) 16.11 H (1.4-6.5) 10^3/uL Band Neutrophils # 1.7 H (0.0-0.3) 10^3/uL Lymphocytes # (Manual) 1.06 L (1.20-3.80) 10^3/uL Monocytes # (Manual) 2.33 H (0.30-0.80) 10^3/uL Eosinophils # (Manual) 0.00 (0.00-0.70) 10^3/uL Basophils # (Manual) 0.00 (0.00-0.10) 10^3/uL Sodium 141 (136-145) mmol/L Potassium 3.8 (3.5-5.1) mmol/L Chloride 103 (98-107) mmol/L Carbon Dioxide 28.1 (21.0-32.0) mmol/L Anion Gap 13.7 BUN 32.0 H (7.0-18.0) mg/dL Creatinine 1.26 (0.70-1.30) mg/dL Est GFR ( Amer) >60 (>=60) Est GFR (Non-Af Amer) 55 L (>=60) BUN/Creatinine Ratio 25.4 Glucose 139 H (74-106) mg/dL Calcium 10.1 (8.5-10.1) mg/dL Troponin I High Sens 33.1 (4.0-76.1) pg/mL Urine Color Yellow (YELLOW) Urine Clarity Clear (CLEAR) Urine pH 5.5 (5.0-9.0) Ur Specific [place] 1.020 (1.005-1.025) Urine Protein 30 A (NEG/TRACE) mg/dL Urine Glucose (UA) >=1000 A (NEGATIVE) mg/dL Urine Ketones Negative (NEGATIVE) mg/dL Urine Occult Blood Moderate A (NEGATIVE) Urine Nitrite Negative (NEGATIVE) Urine Bilirubin Negative (NEGATIVE) Urine Urobilinogen 0.2 (0.2-1.0) EU/dL Ur Leukocyte Esterase Small A (NEGATIVE) Urine RBC 10-20 A (0-2) #/HPF Urine WBC 5-10 A (NONE SEEN) #/HPF Ur Squamous Epith Cells Few A (NONE/RARE) #/LPF Urine Crystals None seen (None Seen) #/HPF Urine Bacteria Small A (NONE SEEN) #/HPF Urine Casts None seen (NONE SEEN) #/LPF Urine Mucus Trace A (NONE SEEN) Ur Culture Indicated? Yes Imaging Data CT scan - abdomen: Radiologist's impression: ITS Impressions Abdomen/Pelvis CT 12/18/23 12:12 IMPRESSION: 1. Evidence of previous gastric surgery and surgical clips around several small bowel loops. No bowel dilatation or evidence of ileus or obstruction. 2. Slightly prominent wall small bowel and colon which contains very little gas and stool. Question whether this reflects enterocolitis. 3. Normal enhancement mesenteric vessels, no findings suggesting mesenteric ischemia. Normal-appearing appendix right lower quadrant. 3. No evidence of ascites or free fluid. No enhancing collection or abscess. Electronically authenticated by: BUBBA DOAN Date: 12/18/2023 14:15 Discharge Plan Discharge Chief Complaint: Abdominal Pain Clinical Impression: UTI (urinary tract infection), Dehydration, Fever Patient Disposition: Admitted As Inpatient Time of Disposition Decision: 15:14 Condition: Fair
--- NOTE | 2023-12-18 11:44 | ECG_ITS ---
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1940 Requested By: Order Number: [id number] Reading MD: DINORAH LO Measurements Intervals [place] Rate: 78 P: 34 MO: 156 QRS: -22 QRSD: 110 T: 54 QT: 400 QTc: 433 Interpretive Statements 1100 Sinus rhythm 1102 Sinus arrhythmia 3413 Cannot rule out septal myocardial infarction, probably old 5234 Left ventricular hypertrophy with repolarization abnormality 9150 abnormal ECG Compared to ECG 02/15/2023 12:09:00 Early repolarization now present Sinus bradycardia no longer present Possible ischemia no longer present Myocardial infarct finding still present Electronically Signed On 12-18-2023 18:45:17 EDT by DINORAH LO
[2023-12-18 11:51] LABS: Hematocrit 41.5 % (42.0-54.0); Hemoglobin 12.9 g/dL (14.0-18.0); Mean Corpuscular HGB Conc 31.1 g/dL (29.9-35.2); Mean Corpuscular Hemoglobin 29.8 pg (25.9-34.0); Mean Corpuscular Volume 95.8 fL (80.0-94.0); Mean Platelet Volume 9.4 fL (9.5-13.5); Platelet Count 170 10^3/uL (150-450); Red Blood Count 4.33 10^6/uL (4.70-6.10); Red Cell Distribution Width 18.4 % (11.0-15.0); White Blood Count 21.2 10^3/uL (4.0-11.0)
[2023-12-18] MEDS: ONDANSETRON PF 4 MG/2 ML VIAL IV (11:58)
[2023-12-18] MEDS: 0.9 % SODIUM CHLORIDE 1,000 ML 1000 ML IV (11:58)
[2023-12-18 12:07] LABS: Anion Gap 13.7; BUN Creatinine Ratio 25.4; Calcium 10.1 mg/dL (8.5-10.1); Carbon Dioxide 28.1 mmol/L (21.0-32.0); Chloride 103 mmol/L (98-107); Estimated GFR (African America >60 (>=60); Estimated GFR (Non-African Ame 55 (>=60); Glucose 139 mg/dL (74-106); Potassium 3.8 mmol/L (3.5-5.1); Sodium 141 mmol/L (136-145); Troponin I High Sensitivity 33.1 pg/mL (4.0-76.1)
[2023-12-18 12:09] LABS: Band Neutrophils Absolute 1.7 10^3/uL (0.0-0.3); Lymphocytes Absolute Manual 1.06 10^3/uL (1.20-3.80); Monocytes Absolute Manual 2.33 10^3/uL (0.30-0.80); Segmented Neut Absolute Manual 16.11 10^3/uL (1.4-6.5)
--- NOTE | 2023-12-18 12:12 | CT_ITS ---
[address] [address] Patient Name: COTY GARCIA MRN: [id number] date: 1940 Sex: M Assigned Patient Location: ER Current Patient Location: ER Accession/Order Number: [id number] Exam Date: 12/18/2023 12:25 Report Date: 12/18/2023 14:15 At the request of: ТАТЬЯНА ZAPATA Procedure: CT abdomen pelvis w con EXAM: CT abdomen pelvis w con HISTORY: Vomiting, WBC 21K, previous small bowel resection COMPARISON: None. TECHNIQUE: CT abdomen pelvis with contrast. Axial scans with reformatted coronal and sagittal images. Contrast: 100 mL Omnipaque 300 FINDINGS: Lower chest: Lung bases clear, no acute process. Cardiac silhouette mildly prominent. Distal esophagus mildly prominent probable hiatal hernia. ABDOMEN: Normal liver enhancement. Gallbladder not visualized. No biliary dilatation. Adrenal glands, pancreas spleen unremarkable. No ascites or free fluid. No adenopathy. Normal aortic enhancement. Oral contrast and celiac axis, SMA and ANTONIO. Symmetric renal enhancement without hydronephrosis, normal ureters. Small cortical cyst upper pole right kidney. No perirenal fluid or stranding. 3.2 mm nonobstructing calculus mid left kidney. Small central cyst upper pole left kidney. Vascular clips seen around the stomach from previous surgery. Clips seen around several small bowel loops from prior surgery. No bowel dilatation or evidence of ileus or obstruction. No pneumatosis seen. Diffuse prominence of the small bowel wall and colon down to the level the rectum.. Little gas in the bowel, very little stool in the colon. Question enterocolitis. Normal-appearing appendix right lower quadrant. Pelvis: No mass or adenopathy or free fluid. Small amount of stool seen in the rectum mildly prominent wall. Normal-appearing fluid-filled bladder. Musculoskeletal: Thickened tissue with enhancement ventral lower abdominal wall suggests previous surgery. Small fat-containing hernia in this area. No abnormal fluid collection or abscess in the abdominal wall. Previous lumbar surgery with hardware artifact. CT/CT abdomen pelvis w con IMPRESSION: 1. Evidence of previous gastric surgery and surgical clips around several small bowel loops. No bowel dilatation or evidence of ileus or obstruction. 2. Slightly prominent wall small bowel and colon which contains very little gas and stool. Question whether this reflects enterocolitis. 3. Normal enhancement mesenteric vessels, no findings suggesting mesenteric ischemia. Normal-appearing appendix right lower quadrant. 3. No evidence of ascites or free fluid. No enhancing collection or abscess. Electronically authenticated by: BUBBA DOAN Date: 12/18/2023 14:15
[2023-12-18 13:01] LABS: Bilirubin Urine NEGATIVE (NEGATIVE); Blood Urine MODERATE (NEGATIVE); Clarity Urine CLEAR (CLEAR); Color Urine YELLOW (YELLOW); Glucose Urine UA >=1000 mg/dL (NEGATIVE); Ketones Urine NEGATIVE (NEGATIVE); Leukocyte Esterase Urine SMALL (NEGATIVE); Nitrite Urine NEGATIVE (NEGATIVE); Protein Urine 30 mg/dL (NEG/TRACE); Urobilinogen Urine 0.2 EU/dL (0.2-1.0); pH Urine 5.5 (5.0-9.0)
[2023-12-18 13:11] LABS: Bacteria Urine SMALL #/HPF (NONE SEEN); Cast Seen? NONE SEEN #/LPF (NONE SEEN); Crystals Seen? None Seen #/HPF (None Seen); Mucus Urine TRACE (NONE SEEN); Squamous Epithelial Cell Urine FEW #/LPF (NONE/RARE); Urine Culture Indicated YES
[2023-12-18] MEDS: ACETAMINOPHEN 325 MG TABLET 650 MG PO (15:24)
[2023-12-18] MEDS: 0.9 % SODIUM CHLORIDE 1,000 ML 125 ML IV (15:24)
[2023-12-18 15:36] LABS: Glucometer 158 mg/dL (74-106)
[2023-12-18 15:54] LABS: Lactate/Lactic Acid 1.6 mmol/L (0.4-2.0)
--- NOTE | 2023-12-18 16:06 | PM.HP ---
HPI H&P: HPI History of Present Illness Chief complaint: DEHYDRATED AND VOMITING MEDICATIONS, UTI, Fever Narrative: Patient is an 83 y.o male with history of CAD s/p cardiac stents x 4, melanoma, Myasthenia Gravis, Non insulin dept Type 2 diabetes, HTN, HLD who presented to the ER today with nausea/vomiting and diarrhea. Vomiting has been going on since yesterday. Fever started today 100.8. He denies any sick contacts. He has not been able to keep down any of his home medications. No shortness of breath, chest pain, also notes clear loose stools/diarrhea. Recently treated with Cipro for UTI. ER findings of UTI, CT abdomen showed Enteritis/colitis, WBC's elevated 21.2, lactate 1.6, but elevated procalcitonin of 15; He received IVF and Zofran and Tylenol Opioid HPI Opioid Management Most Recent Pain and Opioid Data: Last ED Pain Assessment 12/18/23 13:05 Last ORT Total Score 0 12/18/23 17:00 Last ORT Risk Category Low Risk 12/18/23 17:00 Review of Systems ROS Narrative ROS: a complete review of systems were reviewed with patient and are positive as below or listed in History of Chief Complaint. General: fever, no chills, night sweats Head: no headache, trauma, visual changes, nausea or vomiting Skin: no reported rashes, itching or sores Eyes: no blurriness of vision Ears: no reported hearing loss, vertigo, earache, or tinnitus Throat: no sore throat, hoarseness, swelling of neck, or tongue pain Heart: no chest pain Lungs: no shortness of breath or cough GI: diarrhea and vomiting/nausea Urinary: no urinary urgency, frequency or pain Neuro: no numbness or tingling HEM: no bleeding issues or bruising ENDO: no thyroid problems Psych: no anxiety or depression [facility] Medical History (Updated 12/18/23 @ 18:15 by Liv Ybarra DO) Melanoma ?C43.9 - Malignant melanoma of skin, unspecified (ICD-10) Hypertension ?I10 - Essential (primary) hypertension (ICD-10) CAD (coronary artery disease) ?I25.10 - Atherosclerotic heart disease of [place] coronary artery without angina pectoris (ICD-10) Type 2 diabetes mellitus ?E11.9 - Type 2 diabetes mellitus without complications (ICD-10) Myasthenia gravis ?G70.00 - Myasthenia gravis without (acute) exacerbation (ICD-10) Surgical History S/P small bowel resection ?Z90.49 - Acquired absence of other specified parts of digestive tract (ICD-10) H/O heart artery stent ?Z95.5 - Presence of coronary angioplasty implant and graft (ICD-10) Social History Within the past year, how often did you have a drink containing alcohol: never Within the past year, how often did you have six or more drinks on one occasion: never Score interpretation: A score less than 4 is consistent with normal alcohol consumption. Previous occupational history: [employer] Known occupational exposures/hazards: Yes Highest level of school completed/degree received: high school graduate Do you want help with school or training: No Meds Home Medications and Allergies Home Medications ?Medication ?Instructions ?Recorded ?Confirmed ?Type ascorbic acid (vitamin C) 500 mg 250 mg PO BID 12/18/23 12/18/23 History tablet atorvastatin 80 mg tablet 80 mg PO BEDTIME 12/18/23 12/18/23 History carvedilol 12.5 mg tablet 12.5 mg PO BID 12/18/23 12/18/23 History empagliflozin 10 mg tablet 10 mg PO DAILY 12/18/23 12/18/23 History (Jardiance) losartan 50 mg tablet 50 mg PO DAILY 12/18/23 12/18/23 History nitroglycerin 0.4 mg sublingual 0.4 mg sublingual Q5M PRN chest 12/18/23 12/18/23 History tablet pain pantoprazole 40 mg tablet,delayed 40 mg PO DAILY 12/18/23 12/18/23 History release prednisone 10 mg tablet 10 mg PO DAILY 12/18/23 12/18/23 History pyridostigmine bromide 180 mg 180 mg PO BID 12/18/23 12/18/23 History tablet,extended release ranolazine 500 mg tablet,extended 500 mg PO Q12H 12/18/23 12/18/23 History release,12 hr ravulizumab-cwvz 100 mg/mL mg IV .EVERY 2 MONTHS 12/18/23 History intravenous solution (Ultomiris) tamsulosin 0.4 mg capsule 0.4 mg PO Q24H 12/18/23 12/18/23 History ticagrelor 90 mg tablet (Brilinta) 90 mg PO Q12H 12/18/23 12/18/23 History Allergies Allergy/AdvReac Type Severity Reaction Status Date / Time cefazolin [From [facility]] Allergy Intermediate Verified 12/18/23 11:36 Exam Narrative Exam Narrative: General: Patient is alert, and oriented to person, place and time with normal affect, proper hygiene Skin: no visible rashes, or ulcers, skin pallor Head: atraumatic, acephalic Eyes: PERRLA, no nystagmus present, conjunctiva clear, no scleral icterus Ears: normal gross auditory acuity Nose: symmetric, no discharge, no maxillary or frontal sinus tenderness Heart: Normal rate and rhythm, no murmurs/rubs/gallops Lungs: no audible wheezes, crackles and normal breath sounds all lung gonsalez Abdomen: Normal audible bowel sounds, no distension, No palpable masses, no organomegaly, no rebound/guarding/ or rigidity Musculoskeletal: no swelling bilateral lower extremities Neuro: CN II-X grossly intact Constitutional Vital Signs, click to edit/add: Last Vital Signs Temp 100.8 F H 12/18/23 15:05 Pulse 93 H 12/18/23 15:20 Resp 18 12/18/23 15:05 BP 159/61 H 12/18/23 15:09 Pulse Ox 94 L 12/18/23 15:05 O2 Del Method Room Air 12/18/23 15:05 Results Labs Labs: Short CBC 12/18/23 Range/Units 11:43 WBC 21.2 H (4.0-11.0) 10^3/uL Hgb 12.9 L (14.0-18.0) g/dL Hct 41.5 L (42.0-54.0) % Plt Count 170 (150-450) 10^3/uL BMP 12/18/23 11:43 Sodium 141 Potassium 3.8 Chloride 103 Carbon Dioxide 28.1 BUN 32.0 H Creatinine 1.26 Glucose 139 H Calcium 10.1 Urine 12/18/23 Range/Units 12:50 Urine Color Yellow (YELLOW) Urine Clarity Clear (CLEAR) Urine pH 5.5 (5.0-9.0) Ur Specific [place] 1.020 (1.005-1.025) Urine Protein 30 A (NEG/TRACE) mg/dL Urine Glucose (UA) >=1000 A (NEGATIVE) mg/dL Assessment and Plan Assessment and Plan (1) Acute UTI: Assessment and Plan: Urine culture pending, Placed in IV invanz (2) Colitis: Assessment and Plan: as seen on CT scan, continue IV invanz; zofran for nausea/vomiting and clear liquid diet (3) SIRS (systemic inflammatory response syndrome): Assessment and Plan: Lactate normal, leukocytosis, tachycardia, fever, elevated procalcitonin. Given IVF and started INvanz, all cultures pending (4) Myasthenia gravis: Assessment and Plan: continue home medications (5) Type 2 diabetes mellitus: Assessment and Plan: Monitor accuchecks, SSI if needed Qualifiers: Diabetes mellitus long term care pharmacist insulin use: without long term care pharmacist use Diabetes mellitus complication status: with other specified complication Qualified Code(s): E11.69 - Type 2 diabetes mellitus with other specified complication (6) CAD (coronary artery disease): Assessment and Plan: continue Brilinta and statin Qualifiers: Coronary Disease-Associated Artery/Lesion type: [place] artery [place] vs. transplanted heart: [place] heart Associated angina: with stable angina Qualified Code(s): I25.118 - Atherosclerotic heart disease of [place] coronary artery with other forms of angina pectoris (7) Hypertension: Assessment and Plan: continue home medications Qualifiers: Hypertension type: primary hypertension Qualified Code(s): I10 - Essential (primary) hypertension (8) Melanoma: Assessment and Plan: just had area removed from his back Qualifiers: Melanoma location: unspecified site Qualified Code(s): C43.9 - Malignant melanoma of skin, unspecified Plan Patient is a DNRCCA- updated form signed and scanned to chart continue Brilinta for DVT prophylaxis Patient is inpatient status and is expected to cross 2 midnights for medically needed hospital care
[2023-12-18 16:07] LABS: PROCALCITONIN 15.18 ng/mL (0.00-0.50)
--- OUTSIDE RECORDS SUMMARY | 2023-12-18 16:28 | XMS_ITS | CCD ---
Author Organization [facility] ion [facility] Care Team Providers Care Vice President Compliance Name Role Phone Collette Barkley Unavailable Charlee [...] (1 source) ceFAZolin Drug Allergy 11-25-2022 Other [facility] Work Phone: (1 source) Sulfonamides (Antibiotic) Drug Allergy 02-04-2017 Rash [facility] Medications Current Medications Medication Drug Class(es) [...] Coronary atherosclerosis; Translations: [Atherosclerotic heart disease of mcgrath coronary artery without angina pectoris] Onset: 12-18-2014 [...] 04-15-2021 01-24-2023 Episodic Other aftercare (1 source) manager terminal (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; Translations: [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] Onset: 12-07-2021 Episodic Other aftercare (1 source) Other jail (current) drug therapy; Translations: [OTH ASSISTED CURRENT DRUG THERAPY] Onset: 12-07-2021 Episodic Other aftercare (1 source) jail (current) use of insulin; Translations: [JIGGER OPERATOR CURRENT USE OF INSULIN] Onset: 12-07-2021 Episodic Other aftercare (1 source) Long-term current use of anticoagulant; Translations: [jail (current) use of anticoagulants] Onset: 01-24-2023 01-24-2023 [...] [Mass/Vol] 10.2 mg/dL Critically high 8.5-10.1 T [facility] Comment on above: Performed By: #### C A #### [facility] [address] [place] [address] Dr. Hayder Howell XR elbow LT 2Von 12-29-2021 XR elbow LT 2V [facility] [place] [address] XRay Report Signed Patient: Jamal Arrieta V MR#: [id number] : 1940 Acct:[id number] Age/Sex: 81 / M ADM Date: 12/29/21 Loc: SOXD Room: Type: [facility] Attending Dr: Collette Barkley MD Copies to: [...] Zhao Jr., D.O.12/29/2021 11:31 AM Dictation Location: [place] [address] Transcribed By: [facility] 12/29/21 1131 Dictated By: Sudeep Zhao Jr, DO 12/29/21 1130 Signed By: 12/29/[address] [facility] CBC AUTO DIFFon 12-01-2021 BASO # 0.0 103/ul Normal 0.0-0.1 [facility] Comment on above: Performed By: #### C BC #### [facility] [address] [address] [address] Hayder Howell Basophils/100 WBC (Bld) 0.3 % Normal 0.2-2.0 [facility] Comment on above: Performed By: #### C BC #### [facility] [address] [address] [address] Hayder Howell EO # 0.0 103/ul Normal 0.0-0.7 [facility] Comment on above: Performed By: #### C BC #### [facility] [address] [address] [address] Hayder Howell Eosinophils/100 WBC (Bld) 0.3 % Critically low 0.9-7.0 [facility] Comment on above: Performed By: #### C BC #### [facility] [address] [place] [address] Dr. Hayder Howell Erythrocyte distribution width (RBC) [Ratio] 19.5 % Critically high 11.0-15.0 [facility] Comment on above: Performed By: #### C BC #### [facility] [address] [place] [address] Dr. Hayder Howell Hematocrit (Bld) [Volume fraction] 30.3 % Critically low 42.0-54.0 [facility] Comment on above: Performed By: #### C BC #### [facility] [address] [place] [address] Dr. Hayder Howell Hemoglobin (Bld) [Mass/Vol] 9.0 g/dL Critically low 14.0-18.0 [facility] Comment on above: Performed By: #### C BC #### [facility] [address] [place] [address] Dr. Hayder Howell IG # 0.02 10e3/ul Normal 0.00-0.03 [facility] Comment on above: Performed By: #### C BC #### [facility] [address] [place] [address] Dr. Hayder Howell IG % 0.3 % Normal 0.0-0.5 [facility] Comment on above: Performed By: #### C BC #### [facility] [address] [place] [address] Dr. Hayder Howell LYMPH # 1.2 103/ul Normal 1.2-3.8 The [facility] Comment on above: Performed By: #### C BC #### [facility] [address] [place] [address] Dr. Hayder Howell Lymphocytes/100 WBC (Bld) 15.9 % Critically low 20.5-60.0 [facility] Comment on above: Performed By: #### C BC #### [facility] [address] [place] [address] Dr. Hayder Howell MANUAL DIFF REQ NO Normal [facility] Comment on above: Performed By: #### C BC #### [facility] [address] [place] [address] Dr. Hayder Howell MCH (RBC) [Entitic mass] 25.5 pg Critically low 25.9-34.0 The [facility] Comment on above: Performed By: #### C BC #### [facility] [address] [address] [address] Hayder Howell MCHC (RBC) [Mass/Vol] 29.7 g/dL Critically low 29.9-35.2 The [facility] Comment on above: Performed By: #### C BC #### [facility] [address] [place] [address] Dr. Hayder Howell MCV (RBC) [Entitic vol] 85.8 fL Normal 80.0-94.0 The [facility] Comment on above: Performed By: #### C BC #### [facility] [address] [place] [address] Dr. Hayder Howell MONO # 0.9 103/ul Critically high 0.3-0.8 [facility] Comment on above: Performed By: #### C BC #### [facility] [address] [place] [address] Dr. Hayder Howell Monocytes/100 WBC (Bld) 11.9 % Normal 1.7-12.0 The [facility] Comment on above: Performed By: #### C BC #### [facility] [address] [place] [address] Dr. Hayder Howell NEUT # 5.3 103/ul Normal 1.4-6.5 The [facility] Comment on above: Performed By: #### C BC #### [facility] [address] [place] [address] Dr. Hayder Howell Neutrophils/100 WBC (Bld) 71.3 % Normal 43.0-75.0 The [facility] Comment on above: Performed By: #### C BC #### [facility] [address] [place] [address] Dr. Hayder Howell Platelet mean volume (Bld) [Entitic vol] 8.8 fL Critically low 9.5-13.5 The [facility] Comment on above: Performed By: #### C BC #### [facility] [address] [place] [address] Dr. Hayder Howell PLT 225 103/ul Normal 150-450 [facility] Comment on above: Performed By: #### C BC #### [facility] [address] [place] [address] Dr. Hayder Howell RBC 3.53 106/ul Critically low 4.70-6.10 [facility] Comment on above: Performed By: #### C BC #### [facility] [address] [address] [address] Hayder Howell WBC 7.4 103/ul Normal 4.0-11.0 [facility] Comment on above: Performed By: #### C BC #### [facility] [address] [place] [address] Dr. Hayder Howell ER URINE PROFILEon 2 Bilirubin Ql (U) Negative Normal NEGATIVE [facility] Comment on above: Performed By: #### U MICRO, ERUR #### [facility] [address] [place] [address] Dr. Hayder Howell Clarity (U) CLEAR Normal CLEAR [facility] Comment on above: Performed By: #### U MICRO, ERUR #### [facility] [address] [place] [address] Dr. Hayder Howell Color (U) YELLOW Normal YELLOW [facility] Comment on above: Performed By: #### U MICRO, ERUR #### [facility] [address] [place] [address] Dr. Hayder HAMILTON A micrscopic examination will be performed if indicated. Normal The [facility] Comment on above: Performed By: #### U MICRO, ERUR #### [facility] [address] [place] [address] Dr. Hayder Howell Glucose Ql (U) Negative Normal NEGATIVE The [facility] Comment on above: Performed By: #### U MICRO, ERUR #### [facility] [address] [place] [address] Dr. Hayder Howell Hemoglobin Ql (U) Negative Normal NEGATIVE The [facility] Comment on above: Performed By: #### U MICRO, ERUR #### [facility] [address] [address] [address] Hayder Howell Ketones Ql (U) Negative Normal NEGATIVE The [facility] Comment on above: Performed By: #### U MICRO, ERUR #### [facility] [address] [place] [address] Dr. Hayder Howell LEUKOCYTES TRACE Abnormal NEGATIVE The [facility] Comment on above: Performed By: #### U MICRO, ERUR #### [facility] [address] [address] [address] Hayder Howell Nitrite Ql (U) Negative Normal NEGATIVE The [facility] Comment on above: Performed By: #### U MICRO, ERUR #### [facility] [address] [place] [address] Dr. Hayder Howell pH (U) 5.0 [pH] Normal 5-9 [facility] Comment on above: Performed By: #### U MICRO, ERUR #### [facility] [address] [place] [address] Dr. Hayder Howell SPEC GRAVITY 1.025 Normal 1.005-<=1.025 [facility] Comment on above: Performed By: #### U MICRO, ERUR #### [facility] [address] [place] [address] Dr. Hayder Howell UA PROTEIN Negative Normal NEGATIVE/ TRACE [facility] Comment on above: Performed By: #### U MICRO, ERUR #### [facility] [address] [address] [address] Hayder Howell UR MICRO IND INDICATED Normal The [facility] Comment on above: Performed By: #### U MICRO, ERUR #### [facility] [address] [place] [address] Dr. Hayder Howell Urobilinogen Qn (U) 0.2 {Nakita'U}/dL Normal 0.2 - 1.0 [facility] Comment on above: Performed By: #### U MICRO, ERUR #### [facility] [address] [place] [address] Dr. Hayder Howell PROF 14(COMP METB)on 022 Albumin [Mass/Vol] 3.0 g/dL Critically low 3.4-5.0 Th e [facility] Comment on above: Performed By: #### C MP #### [facility] [address] [place] [address] Dr. Hayder Howell Albumin/Globulin [Mass ratio] 1.0 {ratio} Normal [facility] Comment on above: Performed By: #### C MP #### [facility] [address] [place] [address] Dr. Hayder Howell ALP [Catalytic activity/Vol] 61 U/L Normal 46-116 [facility] Comment on above: Performed By: #### C MP #### [facility] [address] [place] [address] Dr. Hayder Howell ALT [Catalytic activity/Vol] 41 U/L Normal 16-63 [facility] Comment on above: Performed By: #### C MP #### [facility] [address] [place] [address] Dr. Hayder Howell Anion gap [Moles/Vol] 9.4 mmol/L Normal [facility] Comment on above: Performed By: #### C MP #### [facility] [address] [place] [address] Dr. Hayder Howell AST [Catalytic activity/Vol] 20 U/L Normal 15-37 [facility] Comment on above: Performed By: #### C MP #### [facility] [address] [place] [address] Dr. Hayder Howell Bilirubin [Mass/Vol] 1.0 mg/dL Normal 0.2-1.0 [facility] Comment on above: Performed By: #### C MP #### [facility] [address] [place] [address] Dr. Hayder Howell Calcium [Mass/Vol] 9.6 mg/dL Normal 8.5-10.1 [facility] Comment on above: Performed By: #### C MP #### [facility] [address] [place] [address] Dr. Hayder Howell Chloride [Moles/Vol] 106 mmol/L Normal 98-107 [facility] Comment on above: Performed By: #### C MP #### [facility] [address] [address] [address] Hayder Howell CO2 [Moles/Vol] 27.3 mmol/L Normal 21.0-32.0 [facility] Comment on above: Performed By: #### C MP #### [facility] [address] [address] [address] Hayder Howell Creatinine [Mass/Vol] 0.71 mg/dL Normal 0.70-1.30 [facility] Comment on above: Performed By: #### C MP #### [facility] [address] [address] [address] Hayder Howell EGFR-AF LATVIAN >60 Normal >=60 [facility] Comment on above: Performed By: #### C MP #### [facility] [address] [address] [address] Hayder Howell EGFR-NON AF LATVIAN >60 Normal >=60 [facility] Comment on above: Performed By: #### C MP #### [facility] [address] [address] [address] Hayder Howell Globulin (S) [Mass/Vol] 3.1 g/dL Normal [facility] Comment on above: Performed By: #### C MP #### [facility] [address] [address] [address] Hayder Howell Glucose [Mass/Vol] 172 mg/dL Critically high 74-106 T [facility] Comment on above: Performed By: #### C MP #### [facility] [address] [address] [address] Hayder Howell Potassium [Moles/Vol] 3.7 mmol/L Normal 3.5-5.1 [facility] Comment on above: Performed By: #### C MP #### [facility] [address] [place] [address] Dr. Hayder Howell Protein [Mass/Vol] 6.1 g/dL Critically low 6.4-8.2 Th [facility] Comment on above: Performed By: #### C MP #### [facility] [address] [address] [address] Hayder Howell Sodium [Moles/Vol] 139 mmol/L Normal 136-145 [facility] Comment on above: Performed By: #### C MP #### [facility] [address] [place] [address] Dr. Hayder Howell Urea nitrogen [Mass/Vol] 13.0 mg/dL Normal 7.0-18.0 [facility] Comment on above: Performed By: #### C MP #### [facility] [address] [place] [address] Dr. Hayder Howell Urea nitrogen/Creatinin e [Mass ratio] 18.3 mg/mg Normal [facility] Comment on above: Performed By: #### C MP #### [facility] [address] [place] [address] Dr. Hayder Howell URINE MICROSCOPIC ONLYon BACTERIA NONE SEEN Normal NONE SEEN [facility] Comment on above: Performed By: #### U MICRO, ERUR #### [facility] [address] [place] [address] Dr. Hayder Howell Bacteria identified Cx Nom (U) NOT INDICATED Normal The [facility] Comment on above: Performed By: #### U MICRO, ERUR #### [facility] [address] [place] [address] Dr. Hayder Howell CAST NONE SEEN Normal NONE SEEN [facility] Comment on above: Performed By: #### U MICRO, ERUR #### [facility] [address] [place] [address] Dr. Hayder Howell Crystals LM Nom (Urine sed) NONE SEEN Normal NONE SEEN [facility] Comment on above: Performed By: #### U MICRO, ERUR #### [facility] [address] [place] [address] Dr. Hayder Howell Epithelial cells LM Ql (Urine sed) RARE Normal NONE SEEN /RARE The [facility] Comment on above: Performed By: #### U MICRO, ERUR #### [facility] [address] [place] [address] Dr. Hayder Howell MUCOUS NONE SEEN Normal NONE SEEN The [facility] Comment on above: Performed By: #### U MICRO, ERUR #### [facility] [address] [address] [address] Hayder Howell RBC 0-2 Normal 0-2 The [facility] Comment on above: Performed By: #### U MICRO, ERUR #### [facility] [address] [address] [address] Hayder Howell WBC 0-2 Abnormal NONE SEEN The [facility] Comment on above: Performed By: #### U MICRO, ERUR #### [facility] [address] [address] [address] Hayder Howell XR RIBS BIL_PA CH [...] DEBBI GUPTA Date: 2021-12-01 09:59 Normal The [facility] Encounters Encounter Date Encounter Type Care Provider Facility Start: 08-08-2023 End: 08-08-2023 ambulatory ANYI HOPSON Not Available Start: 08-01-2023 Telephone encounter Anyi calvin AERODYNAMICS ENGINEER Work Phone: [facility] Comment on above: Lab Orders Start: 01-24-2023 Patient encounter status Anyi Hopson AERODYNAMICS ENGINEER Work Phone: [facility] Start: 06-09-2022 End: 06-10-2022 ambulatory ANYI HOPSON Facility: Start: 01-06-2022 End: 01-07-2022 ambulatory NONE LISTED REQUEST Facility: Start: 01-01-2022 End: 01-01-2022 ambulatory Charlee Shields Other [facility] Other Start: 01-01-2022 Telephone encounter Charlee Shields [facility] Start: 12-29-2021 End: 12-29-2021 ambulatory Collette Barkley Other [facility] Other Start: 12-29-2021 Postop follow up vis it related to original px Collette Barkley [facility] Start: 12-08-2021 End: 12-09-2021 ambulatory COLLETTE BARKLEY [facility] Other Start: 12-08-2021 [facility] new patient Collette Barkley [facility] [place] Start: 12-01-2021 End: 12-01-[address] NONE LISTED REQUEST Facility: Plan of Treatment Date Care Activity Detail Author Start: 10-17-2023 End: 10-17-2023 Patient encounter procedure 10/17/2023 1:00 PM EDT Office Visit [facility] [address] [facility] [address] [place] [address] Errol [place] MD [address] [facility] [address] [address] [facility] Start: 08-08-2023 End: 08-08-2023 Patient encounter procedure 08/08/2023 11:00 AM EST Office Visit [facility] [address] [facility] [address] [place] [id number] Anyi Hopson AERODYNAMICS ENGINEER [address] [facility] [address] [place] [address] [facility] Start: 08-01-2023 End: 08-01-2024 Calcium [Mass/volume] in Serum or Plasma Calcium Lab Routine Age-related osteoporosis without current pathological fracture (CMS/HCC) Expected: 08/01/2023 (Approximate), Expires: 08/01/2024 [facility] Work Phone: Comment on above: Expected: 08/01/2023 (Approximate), Expires: 08/01/2024 Start: 03-04-2023 Influenza vaccination Influenza Vacc ine (#1) [facility] Immunizations Immunization Date Immunization Notes Care Provider Fa pabloty 04-10-2021 influenza virus vacc ine, unspecified formulation Anyi Hopson AERODYNAMICS ENGINEER Work Phone: [facility] 12-08-2020 pneumococcal polysaccharide vaccine, 23 valent Anyi Jose AERODYNAMICS ENGINEER Work Phone: [facility] 08-05-2020 influenza, injectabl e, quadrivalent, preservative free Anyi Jose AERODYNAMICS ENGINEER Work Phone: [facility] Payers Date Payer Category Payer Managed Care O (unspecified) [employer] [id number] 2001-Present [address] [place] [address] O [id number] 1959 Private Health Insurance [id number] 1957 Self-pay 1940 Unknown [id number] 1940 Unknown [id number] 1940 Unknown [id number] 1940 Unknown [id number] Unknown [id number] Social History Date Type Detail Facility Start: 03-28-[address] [facility] [employer] Other Start: 01-12-2023 Tobacco smoking status [facility] Ex-smoker [facility] End: 07-04-1972 History of tobacco use Current smoker [facility] End: 07-04-1972 History of tobacco use Cigarette Smoker [facility] Start: 01-12-2023 Tobacco use and exposure Smokeless tobacco non-user [facility] Start: 07-22-2023 Alcohol intake Ex-drinker (finding) [facility] Start: 03-28-2023 History of Social function [facility] Start: 01-12-2023 Alcohol Comment stopped drinking 198 0s? [facility] Start: 1940 Sex Assigned At Male [facility] Start: 03-28-2023 Gender identity Identifies as male gender (finding) [facility] Medical Equipment Procedure Code Equipment Code Equipment Origin al Text Equipment Identifier Dates BD Pen Needle Na no U/F 32G X 4 MM [facility] [id number] Start: 12-15-2022 Clinical Notes 12-01-2021 to 08-05-2023 Telephone Encounter - Helen Tamayo - 08/05/2023 11:14 AM ESTTelephone Encounter - Helen Tamayo - 08/05/2023 11:14 AM ESTTelephone Encounter - Helne Tamayo - 08/05/2023 11:06 AM EST Note Date & Type Note Facility 08-05-2023 Telephone encounter Note Form atting of this note might be different from the original. Patient just stopped in to [facility] and I printed the signed order for him to take back to [facility] for his lab. [facility] 08-05-2023 Miscellaneous Notes Formattin g of this note might be different from the original. Patient just stopped in to [facility] and I printed the signed order for him to take back to [facility] for his lab. Patient called and stated he is at [facility] for calcium lab since he is to have a Prolia shot Tuesday, but [facility] doesn't have the order and he would like us to refax it. Patient's call back is [phone]. Please advise, thank you documented in this encounter [facility] 08-05-2023 Telephone encounter Note Form atting of this note might be different from the original. Patient called and stated he is at [facility] for calcium lab since he is to have a Prolia shot Tuesday, but [facility] doesn't have the order and he would like us to refax it. Patient's call back is [phone]. Please advise, thank you [facility] 12-29-2021 Evaluation note Encounter Date Diagnosis Assessment Notes Dec, Closed fracture of olecranon process of left ulna with routine healing, subsequent encounter (ICD-10 - S52.022D) Radiographs reviewed with patient today. Discussed with patient to continue to wear splint and use sling for protection when out of the home. Discussed with patient he can progress to range of motion exercises. [facility] Other 06-08-2022 NotePROCEDURE: XR ELBOW LT 2V [...] Electronically authenticated by: DEBBI GUPTA Date: 2021-12-09 07:01[facility]06-07-2022 Evaluation note* Encounter Date Diagnosis Assessment [...] discussed that this injury can lead to jail elbow pain and stiffness. Discussed with patient to call if he would like home health Since there is not significant displacement and he states he is very limited with normal activities in general I think that nonoperative treatment will be adequate. [employer] Other 05-31-2022 NotePROCEDURE: XR ELBOW LT 2V [...] Electronically authenticated by: DEBBI GUPTA Date: 2021-12-01 11:06[facility]05-31-2022 NotePROCEDURE: XR ELBOW LT MIN 3 [...] Electronically authenticated by: DEBBI GUPTA Date: 2021-12-01 10:01[facility]05-31-2022 NotePROCEDURE: XR HIP LT 2 3V [...] Electronically authenticated by: DEBBI GUPTA Date: 2021-12-01 09:56[facility] note[facility] InformationN[place] [facility] Other Evaluation note* Diagnosis Age-related osteoporosis without current pathological fracture (CMS/HCC)- Primary Age-related osteoporosis without current pathological fracture (CMS/HCC)- Primary documented in this encounter [facility] N[facility]ative - Reported* Type Description Date Medical History hypertension Medical History hyperlipidemia [employer] Other Summary Purpose Family History No Family [...] and content) DATE CREATED AUTHOR 01/09/2022 [facility] DATE CREATED AUTHOR AUTHOR'S ORGANIZ ATION 06/12/2022 [facility] DATE CREATED AUTHOR AUTHOR'S ORGANIZ ATION 08/09/2023 [facility] [...] BE BASED ON THE PRIMARY CLINICAL RECORDS. [employer] provides no warranty or guarantee of the accuracy or completeness of information in this document.
[2023-12-18] MEDS: ERTAPENEM SODIUM 1 GM in 0.9 % SODIUM CHLORIDE 50 ML IV (17:13)
[2023-12-18] MEDS: LACTATED RINGER'S SOLUTION 1,000 ML 75 ML IV (17:14)
[2023-12-18] MEDS: CARVEDILOL 12.5 MG TABLET PO (21:45)
[2023-12-18] MEDS: RANOLAZINE 500 MG TAB.ER.12H PO (21:45)
[2023-12-18] MEDS: TICAGRELOR 90 MG TABLET PO (21:45)
[2023-12-18] MEDS: ATORVASTATIN CALCIUM 40 MG TABLET 80 MG PO (23:26)
[2023-12-19] VITALS (16 sets, daily range): BP systolic 99–152; BP diastolic 63–77; PULSE 65–91; TEMP 37.2–38; O2SAT 90–92
[2023-12-19 03:10] LABS: A. calcoaceticus-baumannii Cpx NOT DETECTED (NOT DETECTE); Bacteroides fragilis NOT DETECTED (NOT DETECTE); Candida albicans NOT DETECTED (NOT DETECTE); Candida auris NOT DETECTED (NOT DETECTE); Candida glabrata NOT DETECTED (NOT DETECTE); Candida krusei NOT DETECTED (NOT DETECTE); Candida parapsilosis NOT DETECTED (NOT DETECTE); Candida tropicalis NOT DETECTED (NOT DETECTE); Cryptococcus neoformans/gattii NOT DETECTED (NOT DETECTE); Enterobacter cloacae complex NOT DETECTED (NOT DETECTE); Enterococcus faecalis NOT DETECTED (NOT DETECTE); Enterococcus faecium NOT DETECTED (NOT DETECTE); Haemophilus influenzae NOT DETECTED (NOT DETECTE); Klebsiella aerogenes NOT DETECTED (NOT DETECTE); Klebsiella pneumoniae group NOT DETECTED (NOT DETECTE); Listeria monocytogenes NOT DETECTED (NOT DETECTE); Neisseria meningitidis NOT DETECTED (NOT DETECTE); Proteus spp. NOT DETECTED (NOT DETECTE); Pseudomonas aeruginosa NOT DETECTED (NOT DETECTE); Salmonella spp. NOT DETECTED (NOT DETECTE); Serratia marcescens NOT DETECTED (NOT DETECTE); Staphylococcus epidermidis NOT DETECTED (NOT DETECTE); Staphylococcus lugdunensis NOT DETECTED (NOT DETECTE); Staphylococcus spp. NOT DETECTED (NOT DETECTE); Stenotrophomonas maltophilia NOT DETECTED (NOT DETECTE); Streptococcus agalactiae NOT DETECTED (NOT DETECTE); Streptococcus pneumoniae NOT DETECTED (NOT DETECTE); Streptococcus pyogenes NOT DETECTED (NOT DETECTE); Streptococcus spp. NOT DETECTED (NOT DETECTE)
[2023-12-19 04:22] LABS: IMP NOT DETECTED (NOT DETECTE); KPC NOT DETECTED (NOT DETECTE); NDM NOT DETECTED (NOT DETECTE); OXA-48-like NOT DETECTED (NOT DETECTE); VIM NOT DETECTED (NOT DETECTE); mcr-1 NOT DETECTED (NOT DETECTE)
[2023-12-19 04:24] LABS: CTX-M DETECTED (NOT DETECTE)
[2023-12-19 04:25] LABS: Enterobacterales DETECTED (NOT DETECTE)
[2023-12-19 05:08] LABS: Basophils Percent Auto 0.1 % (0.2-2.0); Eosinophils Percent Auto 0.1 % (0.9-7.0); Hematocrit 36.1 % (42.0-54.0); Hemoglobin 11.2 g/dL (14.0-18.0); Immature Granulocytes Abs Auto 0.43 10^3/uL (0.00-0.03); Lymphocytes Absolute Auto 0.4 10^3/uL (1.2-3.8); Lymphocytes Percent Auto 2.7 % (20.5-60.0); Mean Corpuscular Hemoglobin 29.6 pg (25.9-34.0); Mean Corpuscular Volume 95.5 fL (80.0-94.0); Mean Platelet Volume 9.9 fL (9.5-13.5); Monocytes Absolute Auto 0.8 10^3/uL (0.3-0.8); Monocytes Percent Auto 5.7 % (1.7-12.0); Neutrophils Absolute Auto 12.6 10^3/uL (1.4-6.5); Neutrophils Percent Auto 88.4 % (43.0-75.0); Platelet Count 129 10^3/uL (150-450); Red Blood Count 3.78 10^6/uL (4.70-6.10); Red Cell Distribution Width 18.3 % (11.0-15.0); White Blood Count 14.3 10^3/uL (4.0-11.0)
[2023-12-19 05:50] LABS: Alanine Aminotransferase 23 U/L (16-63); Albumin Globulin Ratio 0.7; Albumin Level 2.4 g/dL (3.4-5.0); Alkaline Phosphatase 54 U/L (46-116); Anion Gap 9.7; Aspartate Amino Transferase 21 U/L (15-37); BUN Creatinine Ratio 20.4; Bilirubin Total 0.9 mg/dL (0.2-1.0); Calcium 9.5 mg/dL (8.5-10.1); Carbon Dioxide 25.1 mmol/L (21.0-32.0); Chloride 105 mmol/L (98-107); Estimated GFR (African America >60 (>=60); Estimated GFR (Non-African Ame >60 (>=60); Globulin 3.4 g/dL; Glucose 93 mg/dL (74-106); Potassium 3.8 mmol/L (3.5-5.1); Sodium 136 mmol/L (136-145); Thyroid Stimulating Hormone 0.927 uIU/mL (0.358-3.740); Total Protein 5.8 g/dL (6.4-8.2)
[2023-12-19 06:35] LABS: Source Blood
--- NOTE | 2023-12-19 08:06 | P.PN_ITS ---
Progress Note: Subjective Subjective Interval history: Patient up in the chair today. She denies any issues or complaints. Appears more confused today but answers questions appropriately, is oriented to time and place. Denies fevers or chills, pain, no further reported vomiting episodes. Exam Narrative Exam Narrative: General: Patient is alert, and oriented to person, place and time with normal affect, proper hygiene Skin: no visible rashes, or ulcers, skin pallor Head: atraumatic, acephalic Eyes: PERRLA, no nystagmus present, conjunctiva clear, no scleral icterus Ears: normal gross auditory acuity Nose: symmetric, no discharge, no maxillary or frontal sinus tenderness Heart: Normal rate and rhythm, no murmurs/rubs/gallops Lungs: no audible wheezes, crackles and normal breath sounds all lung gonsalez Abdomen: Normal audible bowel sounds, no distension, No palpable masses, no organomegaly, no rebound/guarding/ or rigidity Musculoskeletal: no swelling bilateral lower extremities Neuro: CN II-X grossly intact Constitutional Vital Signs, click to edit/add: Last Vital Signs Temp 100.4 F 12/19/23 07:49 Pulse 85 12/19/23 07:49 Resp 18 12/19/23 07:49 BP 150/74 H 12/19/23 07:49 Pulse Ox 91 L 12/19/23 07:49 O2 Del Method Room Air 12/19/23 07:49 Progress Note: Objective Labs Labs: Short CBC 12/18/23 12/19/23 Range/Units 11:43 04:46 WBC 21.2 H 14.3 H (4.0-11.0) 10^3/uL Hgb 12.9 L 11.2 L (14.0-18.0) g/dL Hct 41.5 L 36.1 L (42.0-54.0) % Plt Count 170 129 L (150-450) 10^3/uL BMP 12/18/23 12/19/23 11:43 04:46 Sodium 141 136 Potassium 3.8 3.8 Chloride 103 105 Carbon Dioxide 28.1 25.1 BUN 32.0 H 20.0 H Creatinine 1.26 0.98 Glucose 139 H 93 Calcium 10.1 9.5 Liver Function 12/19/23 Range/Units 04:46 Total Bilirubin 0.9 (0.2-1.0) mg/dL AST 21 (15-37) U/L ALT 23 (16-63) U/L Alkaline Phosphatase 54 (46-116) U/L Albumin 2.4 L (3.4-5.0) g/dL Urine 12/18/23 Range/Units 12:50 Urine Color Yellow (YELLOW) Urine Clarity Clear (CLEAR) Urine pH 5.5 (5.0-9.0) Ur Specific [place] 1.020 (1.005-1.025) Urine Protein 30 A (NEG/TRACE) mg/dL Urine Glucose (UA) >=1000 A (NEGATIVE) mg/dL Progress Note: A&P Assessment and Plan (1) Bacteremia due to Enterobacter species: Assessment and Plan: Sensitivities pending, continue Invanz, will check Echocardiogram (2) E coli bacteremia: Assessment and Plan: Sensitivities pending, continue Invanz (3) Acute UTI: Assessment and Plan: from #1 and #2 species; Urine culture pending, continue on IV invanz (4) Colitis: Assessment and Plan: as seen on CT scan, continue IV invanz; zofran for nausea/vomiting and clear liquid diet, will advance diet today (5) Myasthenia gravis: Assessment and Plan: continue home medications (6) Type 2 diabetes mellitus: Assessment and Plan: Monitor accuchecks, SSI if needed Qualifiers: Diabetes mellitus complication status: with other specified complication Diabetes mellitus terminal press operator insulin use: without fdc use Qualified Code(s): E11.69 - Type 2 diabetes mellitus with other specified complication (7) CAD (coronary artery disease): Assessment and Plan: continue Brilinta and statin Qualifiers: Associated angina: with stable angina Coronary Disease-Associated Artery/Lesion type: [place] artery [place] vs. transplanted heart: [place] heart Qualified Code(s): I25.118 - Atherosclerotic heart disease of [place] coronary artery with other forms of angina pectoris (8) Hypertension: Assessment and Plan: continue home medications Qualifiers: Hypertension type: primary hypertension Qualified Code(s): I10 - Essential (primary) hypertension (9) Melanoma: Assessment and Plan: just had area removed from back, outpatient Qualifiers: Melanoma location: unspecified site Qualified Code(s): C43.9 - Malignant melanoma of skin, unspecified Plan Patient is a DNRCCA continue Brilinta nothing additional for DVT prophylaxis patient with new findings of bacteremia, will need several more days of IV antibiotics and awaiting sensitivies.
[2023-12-19] MEDS: PYRIDOSTIGMINE BROMIDE 60 MG TABLET 180 MG PO ×2 (08:45→22:21)
[2023-12-19] MEDS: RANOLAZINE 500 MG TAB.ER.12H PO ×2 (08:46→22:22)
[2023-12-19] MEDS: OMEPRAZOLE 40 MG CAPSULE.DR PO (08:46)
[2023-12-19] MEDS: ASCORBIC ACID 500 MG TABLET 250 MG PO ×2 (08:46→22:31)
[2023-12-19] MEDS: PREDNISONE 10 MG TABLET PO (08:46)
[2023-12-19] MEDS: TAMSULOSIN HCL 0.4 MG CAPSULE PO (08:46)
[2023-12-19] MEDS: TICAGRELOR 90 MG TABLET PO ×2 (08:46→22:21)
[2023-12-19] MEDS: LOSARTAN POTASSIUM 50 MG TABLET PO (08:46)
[2023-12-19] MEDS: CARVEDILOL 12.5 MG TABLET PO ×2 (08:46→22:21)
--- NOTE | 2023-12-19 10:08 | SWNOTE1 ---
SW spoke to therapy and pt may need SNF.
[2023-12-19 11:10] LABS: Glucometer 137 mg/dL (74-106)
--- NOTE | 2023-12-19 11:20 | CA_ITS ---
Patient Name: COTY GARCIA MR#: [id number] : 1940 Exam Date: 12/19/2023 Ordering Doctor: SARAH WEAVER . ECHOCARDIOGRAM REPORT PROCEDURE: CA ECHO DOPPLER COMPLETE INDICATIONS: bacteremia COMPARISON: None. DESCRIPTION: COMPLETE ECHOCARDIOGRAM Real-time transthoracic echocardiography with 2D, M-mode, spectral and color flow Doppler performed. QUALITY: Technical quality was fair. LEFT VENTRICLE: Normal chamber size. Proximal septal hypertrophy (sigmoid septum). Normal systolic function. LV EF: Normal left ventricular ejection fraction, (>55%). DIASTOLIC: Diastolic function is indeterminate. ATRIAL SEPTUM: LEFT ATRIUM: Normal chamber size. RIGHT ATRIUM: Normal chamber size. RIGHT VENTRICLE: Normal chamber size. Normal right ventricular systolic function. TRICUSPID VALVE: Normal mobility and thickness. No stenosis with trivial regurgitation. Unable to assess right-sided pressures due to lack of measurable tricuspid regurgitation. MITRAL VALVE: Normal mobility and thickness. No evidence of mitral valve stenosis. Mild mitral annular calcification. No mitral regurgitation. AORTIC VALVE: Normal trileaflet appearance. Mildly calcified aortic valve. Normal leaflet mobility. Mild aortic valve stenosis. Mean gradient is 9 mmHg, peak velocity 2.02 m/s, calculated valve area is 1.6 cm?. No aortic regurgitation. AORTIC ROOT: Normal diameter and appearance. PULMONIC VALVE: Not well visualized. No regurgitation. PERICARDIUM: No evidence of pericardial effusion. IVC: Not well visualized. PLEURA: CONCLUSION: 1. Normal ventricular systolic function. LVEF is 55 to 60%. 2. Normal right ventricular size and systolic function. 3. Mild aortic valve stenosis. 4. No pericardial effusion. 5. The current study has low sensitivity for detection of valvular vegetations. If clinically indicated consider a transesophageal echocardiogram. Adult Echocardiography Procedure Report Left Ventricle LVEDD (3.7 - 5.6 cm): 4.82 cm LVESD (2.2 - 4.0 cm): 3.20 cm LVIVS thickness (0.6 - 1.2 cm): 1.31 cm LVPW thickness (0.5 - 1.0 cm): 1.02 cm LVOT Max Gradient: 3 mm[Hg] Peak Velocity (LVOT): 83.50 cm/s Mean Velocity (LVOT): 56.10 cm/s LVOT Diameter 2.60 cm Left Ventricular Ejection Fraction: 55-60% Left Atrium LA Volume Index (2D A2C): 46051 mm3 Left Atrium Systolic Dimension: 4.00 cm Mitral Valve MV E to A Ratio: 1 Mitral Valve A-Wave Peak Velocity: 89.80 cm/s Mitral Valve E-Wave Peak Velocity: 86.90 cm/s Right Ventricle Aorta AO Root Diam: 3.80 cm Aortic Valve AoV Area (Peak Arie): 2.19 cm2 AoV Area (VTI): 2.60 cm2 Peak Velocity(Antegrade Flow): 202.00 cm/s Peak Gradient(Antegrade Flow): 16 mm[Hg] Mean Velocity(Antegrade Flow): 133.00 cm/s Mean Gradient(Antegrade Flow): 9 mm[Hg] Velocity Time Integral: 38.60 cm Tricuspid Valve Peak Velocity: 52.30 cm/s Pulmonic Valve Peak Velocity: 124.00 cm/s, 121.00 cm/s Peak Gradient: 6 mm[Hg] Right Atrium Dictated by: Benny Parker M.D. on 12/19/2023 at 15:09 Approved by: Benny Parker M.D. on 12/19/2023 at 15:16
--- NOTE | 2023-12-19 11:29 | CM.NOTE ---
Rounds made with Dr. Ybarra. Dr. Ybarra reviews lab findings with Mr. Arrieta. He verbalizes understanding. Dr. Ybarra also spoke with Mr. Arrieta's sister. No plan for discharge today.
[2023-12-19 12:27] LABS: Lactate/Lactic Acid 1.2 mmol/L (0.4-2.0)
--- NOTE | 2023-12-19 12:28 | SWNOTE1 ---
CLIVE called and spoke to pt's , due to pt's confusion at this time. CLIVE advised pt's that SW is calling in regards to discharge planning. SW let her know that at this time it is being recommended that pt go to SNF for therapy to get stronger. Pt's stated, I am not going to give you false hope and lie to you, but he is never going to agree to go. He is stubborn. She voiced he will possibly be open to Home Health so that he does not have to go skilled. She stated in the past after surgeries she wanted him to go SNF, but he would not. She is open to any [employer] that is in network with insurance. She voiced she has several family/friends in the area that can assist if he goes home prior to pt being discharged. She stated her brother and sister in law are retired and can go to the home and make sure he is eating and take care of dog. She voiced he will not be home alone and everyone will help. She again apologized to CLIVE that when SW goes in there pt will not be happy about SW talking about going to SNF. She stated her goal is to be here by Tuesday, but depending on work it may not be until this weekend. SW to speak with pt. CLIVE updated nursing and doctor.
--- NOTE | 2023-12-19 14:48 | SWNOTE1 ---
SW went in to complete assessment, but pt was sleeping. SW to complete assessment tomorrow.
[2023-12-19] MEDS: ERTAPENEM SODIUM 1 GM in 0.9 % SODIUM CHLORIDE 50 ML IV (15:07)
[2023-12-19 16:27] LABS: Glucometer 148 mg/dL (74-106)
[2023-12-19] MEDS: LACTATED RINGER'S SOLUTION 1,000 ML 75 ML IV ×2 (18:08→22:19)
[2023-12-19 21:07] LABS: Glucometer 227 mg/dL (74-106)
[2023-12-19] MEDS: ACETAMINOPHEN 325 MG TABLET 650 MG PO (22:21)
[2023-12-19] MEDS: ATORVASTATIN CALCIUM 40 MG TABLET 80 MG PO (22:21)
[2023-12-19] MEDS: INSULIN ASPART 300 UNIT/3 ML PEN SUBQ (22:22)
[2023-12-20] VITALS (20 sets, daily range): BP systolic 106–144; BP diastolic 62–81; PULSE 55–77; TEMP 36.4–37.9; O2SAT 85–98
[2023-12-20 05:16] LABS: Glucometer 124 mg/dL (74-106)
[2023-12-20 05:42] LABS: Basophils Percent Auto 0.3 % (0.2-2.0); Eosinophils Percent Auto 0.2 % (0.9-7.0); Hematocrit 35.2 % (42.0-54.0); Hemoglobin 10.9 g/dL (14.0-18.0); Immature Granulocytes Abs Auto 0.02 10^3/uL (0.00-0.03); Immature Granulocytes Pct Auto 0.2 % (0.0-0.5); Lymphocytes Absolute Auto 0.5 10^3/uL (1.2-3.8); Lymphocytes Percent Auto 5.2 % (20.5-60.0); Mean Corpuscular Hemoglobin 29.8 pg (25.9-34.0); Mean Corpuscular Volume 96.2 fL (80.0-94.0); Mean Platelet Volume 10.8 fL (9.5-13.5); Monocytes Absolute Auto 0.7 10^3/uL (0.3-0.8); Monocytes Percent Auto 8.1 % (1.7-12.0); Neutrophils Absolute Auto 7.5 10^3/uL (1.4-6.5); Platelet Count 111 10^3/uL (150-450); Red Blood Count 3.66 10^6/uL (4.70-6.10); White Blood Count 8.7 10^3/uL (4.0-11.0)
[2023-12-20 06:05] LABS: Alanine Aminotransferase 20 U/L (16-63); Albumin Globulin Ratio 0.6; Albumin Level 2.1 g/dL (3.4-5.0); Alkaline Phosphatase 49 U/L (46-116); Anion Gap 6.6; Aspartate Amino Transferase 15 U/L (15-37); BUN Creatinine Ratio 22.6; Bilirubin Total 0.7 mg/dL (0.2-1.0); Calcium 9.6 mg/dL (8.5-10.1); Carbon Dioxide 27.6 mmol/L (21.0-32.0); Chloride 106 mmol/L (98-107); Estimated GFR (African America >60 (>=60); Estimated GFR (Non-African Ame >60 (>=60); Globulin 3.5 g/dL; Glucose 111 mg/dL (74-106); Magnesium 2.2 mg/dL (1.8-2.4); Potassium 4.2 mmol/L (3.5-5.1); Sodium 136 mmol/L (136-145); Total Protein 5.6 g/dL (6.4-8.2)
[2023-12-20 07:29] LABS: Glucometer 133 mg/dL (74-106)
--- NOTE | 2023-12-20 08:54 | P.PN_ITS ---
Progress Note: Subjective Subjective Interval history: Patient up in the bed today. He denies any issues or complaints. Denies fevers or chills, pain, no further reported vomiting episodes. Feels strength is improving but refusing to work with PT. Exam Narrative Exam Narrative: General: Patient is alert, and oriented to person, place and time with normal affect, proper hygiene Skin: no visible rashes, or ulcers Head: atraumatic, acephalic Heart: Normal rate and rhythm, no murmurs/rubs/gallops Lungs: no audible wheezes, crackles and normal breath sounds all lung gonsalez Abdomen: Normal audible bowel sounds, no distension, No palpable masses, no organomegaly, no rebound/guarding/ or rigidity Musculoskeletal: no swelling bilateral lower extremities Neuro: CN II-X grossly intact Constitutional Vital Signs, click to edit/add: Last Vital Signs Temp 100.2 F 12/20/23 07:56 Pulse 75 12/20/23 07:59 Resp 14 12/20/23 07:56 BP 144/81 H 12/20/23 07:56 Pulse Ox 88 L 12/20/23 07:56 O2 Del Method Room Air 12/20/23 07:56 Progress Note: Objective Labs Labs: Short CBC 12/20/23 Range/Units 04:37 WBC 8.7 (4.0-11.0) 10^3/uL Hgb 10.9 L (14.0-18.0) g/dL Hct 35.2 L (42.0-54.0) % Plt Count 111 L (150-450) 10^3/uL BMP 12/20/23 04:37 Sodium 136 Potassium 4.2 Chloride 106 Carbon Dioxide 27.6 BUN 24.0 H Creatinine 1.06 Glucose 111 H Calcium 9.6 Liver Function 12/20/23 Range/Units 04:37 Total Bilirubin 0.7 (0.2-1.0) mg/dL AST 15 (15-37) U/L ALT 20 (16-63) U/L Alkaline Phosphatase 49 (46-116) U/L Albumin 2.1 L (3.4-5.0) g/dL Progress Note: A&P Assessment and Plan (1) Bacteremia due to Enterobacter species: Assessment and Plan: Sensitivities pending, continue Invanz, Echocardiogram normal (2) E coli bacteremia: Assessment and Plan: Sensitivities pending, continue Invanz (3) Acute UTI: Assessment and Plan: from #1 and #2 species; Urine culture pending, continue on IV invanz (4) Colitis: Assessment and Plan: as seen on CT scan, continue IV invanz; zofran for nausea/vomiting but this has resolved. (5) Myasthenia gravis: Assessment and Plan: continue home medications (6) Type 2 diabetes mellitus: Assessment and Plan: Monitor accuchecks, SSI if needed Qualifiers: Diabetes mellitus complication status: with other specified complication Diabetes mellitus terminal makeup operator insulin use: without half-way use Qualified Code(s): E11.69 - Type 2 diabetes mellitus with other specified complication (7) CAD (coronary artery disease): Assessment and Plan: continue Brilinta and statin Qualifiers: Associated angina: with stable angina Coronary Disease-Associated Artery/Lesion type: [place] artery [place] vs. transplanted heart: [place] heart Qualified Code(s): I25.118 - Atherosclerotic heart disease of [place] coronary artery with other forms of angina pectoris (8) Hypertension: Assessment and Plan: continue home medications Qualifiers: Hypertension type: primary hypertension Qualified Code(s): I10 - Essential (primary) hypertension (9) Melanoma: Qualifiers: Melanoma location: unspecified site Qualified Code(s): C43.9 - Malignant melanoma of skin, unspecified Plan Patient is a DNRCCA continue Brilinta nothing additional for DVT prophylaxis patient with bacteremia, will need several more days of IV antibiotics and awaiting sensitives for outpatient treatment recommendations.
[2023-12-20] MEDS: PYRIDOSTIGMINE BROMIDE 60 MG TABLET 180 MG PO ×2 (09:33→21:53)
[2023-12-20] MEDS: TICAGRELOR 90 MG TABLET PO ×2 (09:34→21:53)
[2023-12-20] MEDS: TAMSULOSIN HCL 0.4 MG CAPSULE PO (09:34)
[2023-12-20] MEDS: PREDNISONE 10 MG TABLET PO (09:34)
[2023-12-20] MEDS: OMEPRAZOLE 40 MG CAPSULE.DR PO (09:34)
[2023-12-20] MEDS: ASCORBIC ACID 500 MG TABLET 250 MG PO ×2 (09:34→21:53)
[2023-12-20] MEDS: RANOLAZINE 500 MG TAB.ER.12H PO ×2 (09:35→21:53)
[2023-12-20] MEDS: CARVEDILOL 12.5 MG TABLET PO ×2 (09:35→21:53)
[2023-12-20] MEDS: LOSARTAN POTASSIUM 50 MG TABLET PO (09:35)
--- NOTE | 2023-12-20 10:03 | SWNOTE1 ---
SW stopped in to speak with pt. OT was in room as well. Pt was eating a popsicle. SW spoke to pt about discharge plans. SW advised pt that as of now SNF is recommended for strengthening. Pt voiced he does not want to go to SNF. SW did let pt know for his safety that is what is recommended. SW also asked pt if he was feeling weaker than before, he stated yes but that is because he was not taking his pills. SW advised pt he should take his medications as it will have effects on his body. CLIVE then asked pt if he was at least open to having home health come in. Pt stated he does not like people in his home. SW did let pt know that his had told SW that he would refuse SNF, but she does want the Home Health to come in. CLIVE offered to call pt's with pt. He voiced she will give a different story. At this time pt refuses SNF and HH. SW did let pt know that HH does not come in everyday, just a few times of the week for a short time. Pt still refuses. Pt does have family and friends in the area and voiced he does have a walker. CLIVE updated doctor of the refusal of SNF and HH.
--- NOTE | 2023-12-20 10:38 | REH.PTDLY ---
Physical Therapy Daily Note PT Daily Note/Assess Start: 12/19/23 10:44 Freq: Status: Active Protocol: Document 12/20/23 10:20 JEWLE (Rec: 12/20/23 10:38 JEWEL [id number]) Visit Not Completed Visit Not Completed Due to: Pt refusing Other Reason Visit Not Completed Pt refuses rx today. Several attempts to promote therapy to pt, but pt is not agreeable today. Physical Therapy Daily Note/Assessment Time In 10:15 Time Out 10:19
[2023-12-20 11:08] LABS: Glucometer 192 mg/dL (74-106)
[2023-12-20] MEDS: INSULIN ASPART 300 UNIT/3 ML PEN SUBQ ×3 (12:28→21:55)
--- NOTE | 2023-12-20 12:34 | CM.NOTE ---
Rounds made with Dr. Ybarra. Dr. Ybarra encourages Mr. Arrieta to participate with P.T./O.T. No discharge today.
--- NOTE | 2023-12-20 12:56 | XR_ITS ---
The [address] [address] Patient Name: COTY GARCIA MRN: [id number] date: 1940 Sex: M Assigned Patient Location: [place] Current Patient Location: [place] Accession/Order Number: [id number] Exam Date: 12/20/2023 12:50 Report Date: 12/20/2023 13:17 At the request of: SARAH WEAVER Procedure: XR chest 1V EXAMINATION: XR chest 1V HISTORY: hypoxia COMPARISON: XR chest 02/15/2023 FINDINGS: LUNGS: No significant pulmonary parenchymal abnormalities. VASCULATURE: No increased pulmonary vasculature. PLEURA: No pneumothorax, effusion, or pleural thickening. CARDIAC: No cardiomegaly or cardiac silhouette abnormality. MEDIASTINUM: No visible mass or adenopathy. BONES: Prior right rotator cuff repair. Old healed left clavicle fracture. OTHER: Negative. XR/XR chest 1V IMPRESSION: 1. Underexpanded lungs. No acute cardiopulmonary process. Electronically authenticated by: HERNANDEZ ALCARAZ Date: 12/20/2023 13:17
[2023-12-20 13:01] LABS: Troponin I High Sensitivity 22.7 pg/mL (4.0-76.1)
[2023-12-20 14:28] LABS: C. Difficile PCR NEGATIVE (NEGATIVE)
--- NOTE | 2023-12-20 15:00 | SWNOTE1 ---
CLIVE spoke with pt's to update her. SW advised her that pt has refused therapy in the hospital and also refused SNF and HH. She did voice she was surprised that he refused the in hopsital therapy but not the HH and SNF. She stated she will call him and try to convince him to participate.
[2023-12-20] MEDS: FUROSEMIDE 20 MG/2 ML VIAL IVP (15:02)
[2023-12-20 17:12] LABS: Glucometer 216 mg/dL (74-106)
[2023-12-20] MEDS: ERTAPENEM SODIUM 1 GM in 0.9 % SODIUM CHLORIDE 50 ML IV (17:28)
[2023-12-20 21:34] LABS: Glucometer 155 mg/dL (74-106)
[2023-12-20] MEDS: ATORVASTATIN CALCIUM 40 MG TABLET 80 MG PO (21:53)
[2023-12-21] VITALS (14 sets, daily range): BP systolic 114–145; BP diastolic 69–92; PULSE 58–80; TEMP 36.8–37.3; O2SAT 91–96
[2023-12-21 05:02] LABS: Basophils Percent Auto 0.3 % (0.2-2.0); Eosinophils Absolute Auto 0.1 10^3/uL (0.0-0.7); Eosinophils Percent Auto 1.1 % (0.9-7.0); Hematocrit 33.4 % (42.0-54.0); Hemoglobin 10.4 g/dL (14.0-18.0); Immature Granulocytes Abs Auto 0.03 10^3/uL (0.00-0.03); Immature Granulocytes Pct Auto 0.4 % (0.0-0.5); Lymphocytes Absolute Auto 0.6 10^3/uL (1.2-3.8); Lymphocytes Percent Auto 9.1 % (20.5-60.0); Mean Corpuscular HGB Conc 31.1 g/dL (29.9-35.2); Mean Corpuscular Hemoglobin 29.6 pg (25.9-34.0); Mean Corpuscular Volume 95.2 fL (80.0-94.0); Mean Platelet Volume 11.1 fL (9.5-13.5); Monocytes Absolute Auto 1.3 10^3/uL (0.3-0.8); Neutrophils Percent Auto 71.1 % (43.0-75.0); Platelet Count 107 10^3/uL (150-450); Red Blood Count 3.51 10^6/uL (4.70-6.10); Red Cell Distribution Width 17.8 % (11.0-15.0)
[2023-12-21 05:17] LABS: Alanine Aminotransferase 22 U/L (16-63); Albumin Globulin Ratio 0.6; Albumin Level 1.9 g/dL (3.4-5.0); Alkaline Phosphatase 46 U/L (46-116); Anion Gap 8.5; Aspartate Amino Transferase 24 U/L (15-37); BUN Creatinine Ratio 21.7; Bilirubin Total 0.5 mg/dL (0.2-1.0); Calcium 9.6 mg/dL (8.5-10.1); Carbon Dioxide 28.1 mmol/L (21.0-32.0); Chloride 106 mmol/L (98-107); Estimated GFR (African America >60 (>=60); Estimated GFR (Non-African Ame >60 (>=60); Globulin 3.4 g/dL; Glucose 108 mg/dL (74-106); Magnesium 1.9 mg/dL (1.8-2.4); Potassium 3.6 mmol/L (3.5-5.1); Sodium 139 mmol/L (136-145); Total Protein 5.3 g/dL (6.4-8.2)
[2023-12-21 08:01] LABS: Glucometer 149 mg/dL (74-106)
--- NOTE | 2023-12-21 08:39 | P.DS_ITS ---
DS: Providers Provider Date of admission: 12/18/23 16:23 Primary care physician: Non-Staff Physician, Admitting clinician: Liv Ybarra Consults: 12/18/23 15:48 Occupational Therapy Eval and Treat Routine Reason for consultation: weakness Has provider been notified: No Physical Therapy Eval and Treat Routine Reason for consultation: weakness Has provider been notified: No Discharging clinician: Liv Ybarra DS: Diagnosis Discharge Diagnosis (1) Bacteremia due to Enterobacter species: (2) E coli bacteremia: (3) Acute UTI: (4) Colitis: (5) Myasthenia gravis: (6) Type 2 diabetes mellitus: Qualifiers: Diabetes mellitus complication status: with other specified complication 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 transplanted heart: [place] heart Qualified Code(s): I25.118 - Atherosclerotic heart disease of [place] coronary artery with other forms of angina pectoris (8) Hypertension: Qualifiers: Hypertension type: primary hypertension Qualified Code(s): I10 - Essential (primary) hypertension (9) Melanoma: Qualifiers: Melanoma location: unspecified site Qualified Code(s): C43.9 - Malignant melanoma of skin, unspecified DS: Summary Hospital Course Hospital Course: Patient is an 83 y.o male with history of CAD s/p cardiac stents x 4, melanoma, Myasthenia Gravis, Non insulin dept Type 2 diabetes, HTN, HLD who presented to the ER with nausea/vomiting and diarrhea. Fever 100.8. He has not been able to keep down any of his home medications. No shortness of breath, chest pain, also notes clear loose stools/diarrhea. Recently treated with Cipro for UTI. ER findings of UTI, CT abdomen showed Enteritis/colitis, WBC's elevated 21.2, lactate 1.6, but elevated procalcitonin of 15; He received IVF and Zofran and Tylenol and was started in [facility] for his acute UTI, Colitis, sepsis. Urine and blood culture both positive for E.coli. Sensitive to the Ertapenum but good sensitivy to oral Bactrim. Patient will placed on Oral Bactrim SS BID x 14 days. He will follow up with his PCP in 5-7 days for labs, CBC and CMP. At the time of discharge his WBC's are in normal range at 7, HB 10.4, Cr 0.92 and K 3.6. Normal liver function. He is to resume all home medications with addition to the Bactrim. He should return to the ER with any worsening signs or symptoms. Physical Therapy and Occupational therapy recommended long term for rehab services and/or Home health but patient refused all. He notes he has a walker at home and he plans to use this. Patient is aware of high fall risk and is willing to take this as personal risk. He will be discharged home today with close follow up. Status at Discharge Functional status at discharge: uses cane/walker Overall status at discharge: patient is progressing back to baseline Time Spent with Patient Time attestation: Total time spent providing and/or coordinating discharge services: Time spent: greater than 30 minutes Exam Narrative Exam Narrative: General: Patient is alert, and oriented to person, place and time with normal affect, proper hygiene Skin: no visible rashes, or ulcers Head: atraumatic, acephalic Heart: Normal rate and rhythm, no murmurs/rubs/gallops Lungs: no audible wheezes, crackles and normal breath sounds all lung gonsalez Abdomen: Normal audible bowel sounds, no distension, No palpable masses, no organomegaly, no rebound/guarding/ or rigidity Musculoskeletal: no swelling bilateral lower extremities Neuro: CN II-X grossly intact Constitutional Vital Signs, click to edit/add: Last Vital Signs Temp 99.1 F 12/21/23 08:28 Pulse 75 12/21/23 08:28 Resp 16 12/21/23 08:28 BP 145/92 H 12/21/23 08:28 Pulse Ox 95 12/21/23 08:28 O2 Del Method Nasal Cannula 12/21/23 08:28 O2 Flow Rate 1 12/21/23 07:45 DS: Data Data Completed and Pending Labs on day of discharge: Labs from last 24 hours 12/21/23 12/21/23 12/20/23 08:00 04:09 21:34 WBC 7.0 RBC 3.51 L Hgb 10.4 L Hct 33.4 L MCV 95.2 H MCH 29.6 MCHC 31.1 RDW 17.8 H Plt Count 107 L MPV 11.1 Neut % (Auto) 71.1 Lymph % (Auto) 9.1 L Cole % (Auto) 18.0 H Eos % (Auto) 1.1 Baso % (Auto) 0.3 Neut # (Auto) 5.0 Lymph # (Auto) 0.6 L Cole # (Auto) 1.3 H Eos # (Auto) 0.1 Baso # (Auto) 0.0 Abs Immat Gran (auto) 0.03 Imm/Tot Granulo (auto) 0.4 Sodium 139 Potassium 3.6 Chloride 106 Carbon Dioxide 28.1 Anion Gap 8.5 BUN 20.0 H Creatinine 0.92 Est GFR ( Amer) >60 Est GFR (Non-Af Amer) >60 BUN/Creatinine Ratio 21.7 Glucose 108 H Calcium 9.6 Magnesium 1.9 Total Bilirubin 0.5 AST 24 ALT 22 Alkaline Phosphatase 46 Troponin I High Sens NT-Pro-B Natriuret Pep Total Protein 5.3 L Albumin 1.9 L Globulin 3.4 Albumin/Globulin Ratio 0.6 C. difficile Toxin PCR POC Glucose 149 H 155 H 12/20/23 12/20/23 12/20/23 17:11 12:35 11:07 WBC RBC Hgb Hct MCV MCH MCHC RDW Plt Count MPV Neut % (Auto) Lymph % (Auto) Cole % (Auto) Eos % (Auto) Baso % (Auto) Neut # (Auto) Lymph # (Auto) Cole # (Auto) Eos # (Auto) Baso # (Auto) Abs Immat Gran (auto) Imm/Tot Granulo (auto) Sodium Potassium Chloride Carbon Dioxide Anion Gap BUN Creatinine Est GFR ( Amer) Est GFR (Non-Af Amer) BUN/Creatinine Ratio Glucose Calcium Magnesium Total Bilirubin AST ALT Alkaline Phosphatase Troponin I High Sens 22.7 NT-Pro-B Natriuret Pep 2073.0 H* Total Protein Albumin Globulin Albumin/Globulin Ratio C. difficile Toxin PCR POC Glucose 216 H 192 H 12/19/23 18:25 WBC RBC Hgb Hct MCV MCH MCHC RDW Plt Count MPV Neut % (Auto) Lymph % (Auto) Cole % (Auto) Eos % (Auto) Baso % (Auto) Neut # (Auto) Lymph # (Auto) Cole # (Auto) Eos # (Auto) Baso # (Auto) Abs Immat Gran (auto) Imm/Tot Granulo (auto) Sodium Potassium Chloride Carbon Dioxide Anion Gap BUN Creatinine Est GFR ( Amer) Est GFR (Non-Af Amer) BUN/Creatinine Ratio Glucose Calcium Magnesium Total Bilirubin AST ALT Alkaline Phosphatase Troponin I High Sens NT-Pro-B Natriuret Pep Total Protein Albumin Globulin Albumin/Globulin Ratio C. difficile Toxin PCR Negative POC Glucose Preliminary micro results at discharge 12/18/23 15:27 - Preliminary Blood Escherichia coli Discharge Plan Discharge Disposition: Home, Self-Care Condition: Fair Discharge Medications: New sulfamethoxazole-trimethoprim [Bactrim] 400-80 mg tablet 1 tab PO BID 14 Days Qty: 28 0RF Continued ascorbic acid (vitamin C) 500 mg tablet 250 mg PO BID atorvastatin 80 mg tablet 80 mg PO BEDTIME carvedilol 12.5 mg tablet 12.5 mg PO BID Jardiance 10 mg tablet 10 mg PO DAILY losartan 50 mg tablet 50 mg PO DAILY nitroglycerin 0.4 mg tablet, sublingual 0.4 mg sublingual Q5M PRN (Reason: chest pain) pantoprazole 40 mg tablet,delayed release (DR/EC) 40 mg PO DAILY prednisone 10 mg tablet 10 mg PO DAILY pyridostigmine bromide 180 mg tablet extended release 180 mg PO BID ranolazine 500 mg tablet extended release 12 hr 500 mg PO Q12H tamsulosin 0.4 mg capsule 0.4 mg PO Q24H Ultomiris 100 mg/mL solution See Rx Instructions IV .EVERY 2 MONTHS Rx Instructions: HOME DOSE intravenously EVERY 2 MONTHS; Brilinta 90 mg tablet 90 mg PO Q12H Activity: ambulate only with your walker and increase activity as tolerated Activity Detail: Patient refused acute rehab and Home Health services Diet: advance to your usual diet Print Language: [place] Patient Instructions: Sulfamethoxazole/Trimethoprim (By mouth) (Bactrim, Bactrim DS,... Forms: Portal Instructions Follow Up Appointments: Please make follow up appointment with PCP in 5-7 days, will need recheck CMP, CBC
[2023-12-21] MEDS: CARVEDILOL 12.5 MG TABLET PO (08:57)
[2023-12-21] MEDS: OMEPRAZOLE 40 MG CAPSULE.DR PO (08:58)
[2023-12-21] MEDS: PREDNISONE 10 MG TABLET PO (08:58)
[2023-12-21] MEDS: TICAGRELOR 90 MG TABLET PO (08:58)
[2023-12-21] MEDS: LOSARTAN POTASSIUM 50 MG TABLET PO (08:58)
[2023-12-21] MEDS: PYRIDOSTIGMINE BROMIDE 60 MG TABLET 180 MG PO (08:58)
[2023-12-21] MEDS: RANOLAZINE 500 MG TAB.ER.12H PO (08:58)
[2023-12-21] MEDS: ASCORBIC ACID 500 MG TABLET 250 MG PO (08:58)
[2023-12-21] MEDS: TAMSULOSIN HCL 0.4 MG CAPSULE PO (08:58)
[2023-12-21] MEDS: INSULIN ASPART 300 UNIT/3 ML PEN SUBQ ×2 (09:00→12:20)
--- NOTE | 2023-12-21 10:42 | REH.PTDLY ---
Physical Therapy Daily Note PT Daily Note/Assess Start: 12/19/23 10:44 Freq: Status: Active Protocol: Document 12/21/23 10:39 JEWEL (Rec: 12/21/23 10:42 JEWEL [id number]) Physical Therapy Daily Note/Assessment Time In 09:23 Time Out 09:33 Subjective Pt refuses rx initially. Family friend in room and talks with pt. Eventually able to get pt to agree to therapy . Therapeutic Activity Minutes (minutes) 10 Therapeutic Activity Units 1 Bed Mobility Ability Minimum Assist Chair Transfer Ability Minimum Assist Therapeutic Activity Comments Pt needs FACE CLEANER with transfers. Gait training with RW SBA 275 feet at slow but steady pace. No complaints from pt with gait, reports he has different walkers and canes at home he can use. Pt sits in chair post rx with chair alarm on for safety. Total Therapy Minutes 10 Total Physical Therapy Units 1 Daily Note Summary Pt able to ambulate safely with RW long distance today. FACE CLEANER for support with supine to sit transfers. No complaints post rx.
[2023-12-21 11:38] LABS: Glucometer 211 mg/dL (74-106)
--- NOTE | 2023-12-21 12:15 | CM.NOTE ---
Rounds made with Dr. Ybarra. Discussed labs and discharge plans. Plan is to discharge today on po antibiotics. Also Dr. Ybarra discussed with patient & friend need to followup with a local PCP. Patient continues to refuse HH and SNF. Friend at beside & patient said there are multiple friends and a sister that will help him until his comes on Tuesday
--- NOTE | 2023-12-21 12:56 | SWNOTE1 ---
SW spoke to physical therapy and pt did really well and walked the halls. Pt is being discharged today. SW spoke to pt and he is still refusing HH at this time. He is going to drive himself home and only lives 2 minutes away. Pt voiced his will be coming on Tuesday morning.
--- NOTE | 2023-12-21 13:03 | SWNOTE1 ---
SW spoke to and she is aware of discharge. She voiced several people will be stopping to check on him today and until she gets here Tuesday.
--- NOTE | 2023-12-21 14:41 | PC.NURSE ---
discharge instructions explained to pt, verbalized understanding. chelly called per request making aware of discharge. taken to exit via wheelchair, discharged to private vehicle.
--- NOTE | 2023-12-22 10:36 | CM.DCFOLLOWU ---
Person spoke with: patient How are you feeling? well How is your pain? no pain Did you understand your discharge instructions? yes Do you have any questions about your discharge instructions? no Were you given any prescriptions at discharge? yes Were you able to get your prescriptions filled? yes Do you understand how to take your medications as ordered? yes Do you have any questions about your follow up appointment and do you plan to keep your follow up appointment? no questions, reviewed follow up apt. Is there anything else that you would like to discuss? no Questions/Comments/Concerns/Other: none
== END 2023-12-21 14:43 | disposition home or self-care (01) | DRG 872 ==
LOC: ER 15:14 → MS 16:26
PROVIDERS: Admitting Provider Family Medicine; Emergency Provider Emergency Medicine; Visit Provider Family Medicine
DX: A41.51 Sepsis due to Escherichia coli [E. coli] (principal); N39.0 Urinary tract infection, site not specified; B96.20 Unspecified Escherichia coli [E. coli] as the cause of diseases classified elsewhere; B96.89 Other specified bacterial agents as the cause of diseases classified elsewhere; K52.9 Noninfective gastroenteritis and colitis, unspecified; E11.69 Type 2 diabetes mellitus with other specified complication; I25.118 Atherosclerotic heart disease of native coronary artery with other forms of angina pectoris; E78.5 Hyperlipidemia, unspecified; G70.00 Myasthenia gravis without (acute) exacerbation; I10 Essential (primary) hypertension; E86.0 Dehydration; Z66 Do not resuscitate; Z88.1 Allergy status to other antibiotic agents; Z85.820 Personal history of malignant melanoma of skin; Z90.49 Acquired absence of other specified parts of digestive tract; Z95.5 Presence of coronary angioplasty implant and graft; Z79.899 Other long term (current) drug therapy; Z79.52 Long term (current) use of systemic steroids
CPT/HCPCS: 36415; 71045; 74177; 80048; 80053; 81001; 82948; 83605; 83735; 83880; 84145; 84443; 84484; 85007; 85025; 85027; 87040; 87045; 87046; 87086; 87150; 87186; 87427; 87493; 93005; 93306; 94761; 96361; 96365; 96366; 96375; 97161; 97165; 97530; 97535; 99285; J1335; J1940; J2405; J7512; Q9967

== ENCOUNTER 2024-01-02 08:32 | Outpatient (OUT) | payer OTHER, SELFPAY ==
--- OUTSIDE RECORDS SUMMARY | 2024-01-02 08:53 | XMS_ITS | CCD ---
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 Role Phone Collette Morales Unavailable Charlee Shields Unavailable REQUEST, DR TROTTER LISTED Admitting Unavaila ble REQUEST, DR TROTTER LISTED Attending Unavaila ble REQUEST, DR TROTTER LISTED Primary Care Unavaila ble APLING, ANYI Mckinney Admitting Unavailable APLING, ANYI Mckinney Attending Unavailable REQUEST, DR TROTTER LISTED Primary Care Unavaila ble APLANYI NAVARRETE Consulting Unavailable OLEALLY, COLLETTE Admitting Unavailable OLEALLY, COLLETTE Attending Unavailable REQUEST, DR TROTTER LISTED Primary Care Unavaila ble ALONSO, DR DEBBI Lynn Consulting Unavailable OLEXA, COLLETTE Consulting Unavailable REQUEST, DR TROTTER LISTED Primary Care Unavaila ble TIP, ERICK Admitting Unavailable TIP, ERICK Attending Unavailable WEST, DR DEBBI Lynn Consulting Unavailable TIP, ERICK Consulting Unavailable APLANYI NAVARRETE Attending Unavailable Unavailable Primary Care Provider Margot Harrison Attending Provider Allergies Allergy Classification Reported Allergen(s) Allergy Type Date of Onset Reaction(s) Facility (1 source) ceFAZolin Drug Allergy 11-25-2022 Other [facility] Work Phone: (1 source) Sulfonamides (Antibiotic) Drug Allergy 02-04-2017 Rash [facility] Medications Current Medications Medication Drug Class(es) Dates Sig (Normalized) Sig (Original) ascorbic acid 500 mg oral tablet (1 source) Vitamin C Start: 12-27-2023 take 250 mg by mouth twice daily Ascorbic Acid (Vitamin C) Active 250 MG PO Twice daily December 27, 2023 12:00am with ferrous sulfate aspirin 81 mg delayed release oral tablet (3 sources) Platelet Aggregation Inhibitor, Nonsteroidal Anti-inflammatory Drug take 1 tablet by mouth once aspirin 81 MG EC tablet Take 81 mg by mouth 1 (one) time. 0 Active take 1 tablet by mouth once binu y Aspirin 81 81 MG 1 tablet Orally Once a day Active atorvastatin 80 mg oral tablet (4 sources) HMG-CoA Reductase Inhibitor Start: 12-09-2023 take 80 mg by mouth once daily Atorvastatin Active 80 MG PO Daily December 09, 2023 12:00am take 1 tablet by mouth in the mo rning atorvastatin (Lipitor) 80 MG tablet Take 80 mg by mouth in the morning. 0 Active calcium carbonate 500 mg oral tablet (1 source) take 1 tablet by mouth in the morning calcium carbonate (Os-Antoine) 1250 (500 Ca) MG tablet Take 1,250 mg by mouth in the morning and 1,250 mg before bedtime. 0 Active carvedilol 12.5 mg oral tablet (4 sources) alpha-Adrenergic Rashel, beta-Adrenergic Rashel Start: 12-09-2023 take 12.5 mg by mouth twice daily Carvedilol Active 12.5 MG PO Twice daily December 09, 2023 12:00am take 1 tablet by mouth in the mo rning carvedilol (Coreg) 12.5 MG tablet Take 12.5 mg by mouth in the morning and 12.5 mg in the evening. Take with meals. 0 Active cholecalciferol 0.125 mg oral capsule (1 source) Vitamin D take 1 capsule by mouth in the morning cholecalciferol (Vitamin D-3) 125 MCG (5000 UT) capsule Take 5,000 Units by mouth in the morning. 0 Active 1 ml denosumab 60 mg/ml prefilled syringe (1 source) RANK Ligand Inhibitor Start: Denosumab (Prolia) 60 mg/mL syringe Active 60 MG SUBCUT EVERY 6 MONTHS December 28, 2023 12:00am diclofenac sodium 0.01 mg/mg topical gel (1 source) Nonsteroidal Anti-inflammatory Drug diclofenac sodium (Voltaren) 1 % gel Apply 4 g topically in the morning and 4 g in the evening and 4 g before bedtime. 0 Active empagliflozin 10 mg oral tablet (2 sources) Sodium-Glucose Cotransporter 2 Inhibitor Start: take 1 tablet by mouth once daily Empagliflozin (Jardiance) 10 mg tablet Active 10 MG PO Daily December 09, 2023 12:00am empagliflozin (J ardiance) 10 MG Take by mouth. 0 Active ferrous sulfate 325 mg delayed release oral tablet (2 sources) Start: 12-27-2023 take 325 mg by mouth twice daily Ferrous Sulfate Active 325 MG PO Twice daily December 27, 2023 12:00am with vitamin c Start: 09-25-2022 take 1 tablet by ramírez th at mealtime ferrous sulfate 325 (65 Fe) MG EC tablet Take 325 mg by mouth in the morning. Take with meals. 0 09/25/2022 Active insulin glargine 100 unt/ml injectable solution (2 sources) Insulin Analog Lantus 100 UNIT/ ML as directed Subcutaneous Active linaclotide 0.145 mg oral capsule (1 source) Guanylate Cyclase-C Agonist Start: 3 take 1 capsule by mouth before mealtime linaCLOtide (Linzess) 145 MCG capsule Indications: Irritable bowel syndrome with diarrhea Take 1 capsule (145 mcg) by mouth in the morning. Take before meals. Do not crush or chew.. 90 capsule 3 03/28/2023 Active losartan potassium 50 mg oral tablet (4 sources) Angiotensin 2 Receptor Rashel Start: 4 take 50 mg by mouth once daily Losartan Active 50 MG PO Daily December 09, 2023 12:00am take 1 tablet by mouth in the mo rning losartan (Cozaar) 50 MG tablet Take 50 mg by mouth in the morning. 0 Active montelukast 10 mg oral tablet (1 source) Leukotriene Receptor Antagonist Start: 03-28-2023 take 1 tablet by mouth at bedtime montelukast (Singulair) 10 MG tablet Indications: Chronic maxillary sinusitis Take 1 tablet (10 mg) by mouth at bedtime. 90 tablet 2 03/28/2023 Active nitroglycerin 0.4 mg sublingual powder (2 sources) Nitrate Vasodilator Start: 12-09-2023 Nitroglycerin Active 0.4 MG SUBLINGUAL Q5M December 09, 2023 12:00am nitroglycerin (N itrostat) 0.[address] 0.4 mg under the tongue every 5 (five) minutes if needed for chest pain. 0 Active pantoprazole 40 mg extended release oral tablet (4 sources) Proton Pump Inhibitor Start: 12-09-2023 take 40 mg by mouth once daily Pantoprazole Active 40 MG PO Daily December 09, 2023 12:00am Start: 08-30-2022 pantoprazole ( ProtoNix) 40 MG EC tablet 1 (one) time each day at the same time. 0 08/30/2022 Active take 1 tablet by ramírez th every twenty-four hours Pantoprazole Sodium 20 MG 1 tablet Orally Once a day Active predniSONE 10 mg oral tablet (2 sources) Start: 12-28-2023 take 10 mg by mouth once daily Prednisone Active 10 MG PO Daily December 28, 2023 12:00am Start: 01-28-2023 End: 01-28-2024 take 1 tablet by mouth in the morning predniSONE (Deltasone) 5 MG tablet Indications: Myasthenia gravis (CMS/HCC) Take 1 tablet (5 mg) by mouth in the morning. 90 tablet 3 01/28/2023 01/28/2024 Active pyridostigmine bromide 180 mg extended release oral tablet (3 sources) Start: 12-27-2023 take 180 mg by mouth twice daily Pyridostigmine [place] Active 180 MG PO Twice daily December 27, 2023 7:50am Start: 12-09-2023 End: 12-27-2023 Pyridostigmine [place] Disco ntinued MG PO December 09, 2023 12:00am December 27, 2023 7:50am take 1 tablet by ramírez th in the morning pyridostigmine (Mestinon) 180 MG ER tablet Take 180 mg by mouth in the morning and 180 mg before bedtime. 0 Active 12 hr ranolazine 500 mg extended release oral tablet (2 sources) Anti-anginal Start: 12-09-2023 take 500 mg by mouth twice daily Ranolazine Active 500 MG PO Twice daily December 09, 2023 12:00am take 1 tablet by ramírez th every twelve hours in the morning ranolazine (Ranexa) 500 MG 12 hr tablet Take 500 mg by mouth in the morning and 500 mg before bedtime. 0 Active Ravulizumab-Cwvz (1 source) Start: 12-09-2023 Ravulizumab-Cwvz (Ultomiris) 100 mg/mL solution Active MG IV December 09, 2023 12:00am obdulia Álvarez, 100 UNIT/ML pen (1 source) Start: 12-15-2022 Semglee, yfgn, 100 UNIT/ML pen sulfamethoxazole 400 mg / trimethoprim 80 mg oral tablet (1 source) Dihydrofolate Reductase Inhibitor Antibacterial, Sulfonamide Antimicrobial Start: 12-28-2023 take 1 tablet by mouth twice daily Sulfamethoxazole-Tri methoprim Active 1 TAB PO Twice daily December 28, 2023 12:00am tamsulosin hydrochloride 0.4 mg oral capsule (2 sources) alpha-Adrenergic Rashel Start: 12-09-2023 take 0.4 mg by mouth once daily Tamsulosin Active 0.4 MG PO Daily December 09, 2023 12:00am take 1 capsule by mo ut every twenty-four hours in the morning tamsulosin (Flomax) 0.4 MG 24 hr capsule Take 0.4 mg by mouth in the morning. 0 Active terbinafine hydrochloride 10 mg/ml topical cream (1 source) Allylamine Antifungal Start: 12-28-2023 Terbinafine Hcl (Lamisil At) 1 % cream Active 1 APPLIC TOPICAL Twice daily 15 December 28, 2023 12:00am ticagrelor 90 mg oral tablet (2 sources) Start: 12-09-2023 take 1 tablet by mouth twice daily Ticagrelor (Brilinta) 90 mg tablet Active 90 MG PO Twice daily December 09, 2023 12:00am take 1 tablet by mouth in the mo rning ticagrelor (Brilinta) 90 MG tablet Take 90 [...] Chronic Coronary atherosclerosis and other heart disease (5 sources) Coronary atherosclerosis; Translations: [Atherosclerotic heart disease of [place] coronary artery without angina pectoris] Onset: 12-18-2014 01-24-2023 Chronic Diabetes mellitus with complications (3 sources) Hypertensive disorder; Translations: [Type 2 diabetes mellitus with other circulatory complications] Onset: 03-06-2015 01-24-2023 Chronic Diabetes mellitus without complication (2 sources) Type 2 diabetes mellitus; Translations: [Type 2 diabetes mellitus without complications] 12-28-2023 Chronic Disorders of lipid metabolism (5 sources) Dyslipidemia; Translations: [Hyperlipidemia, unspecified] Onset: 08-11-2015 01-24-2023 Chronic Essential hypertension (1 source) Essential (primary) hypertension; Translations: [Unspecified essential hypertension] 12-28-2023 Chronic Mycoses (2 sources) Dermatophytosis; Translations: [Dermatophytosis, unspecified] 12-28-2023 Episodic Osteoporosis (6 sources) Age-related osteoporosis without current pathological fracture; Translations: [Senile osteoporosis] Onset: 06-09-2022 Chronic Other nervous system disorders (2 sources) Myasthenia gravis; Translations: [Myasthenia gravis without (acute) exacerbation] Onset: 09-01-2021 11-25-2022 Chronic Other nervous system disorders (1 source) Myasthenia gravis without (acute) exacerbation; Translations: [Myasthenia gravis without (acute) exacerbation] 12-28-2023 Chronic Other nutritional; endocrine; and metabolic disorders [...] disorders of intestine] Onset: 01-24-2023 01-24-2023 Chronic Urinary tract infections (2 sources) Urinary tract infectious disease; Translations: [Urinary tract infection, site not specified] 12-28-2023 Episodic Past or Other Problems Problem Classification Problem [...] 04-15-2021 01-24-2023 Episodic Other aftercare (1 source) assisted (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; Translations: [NURSING HOME CURRENT USE OF ASPIRIN] Onset: 12-07-2021 Episodic Other aftercare (1 source) Other middle or intermediate school principal (current) drug therapy; Translations: [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 Hayder Howell XR elbow LT 2Von 12-29-2021 XR elbow LT 2V [facility] [place] [address] XRay Report Signed Patient: Jamal Arrieta V MR#: [id number] : 1940 Acct:[id number] Age/Sex: 81 / M ADM Date: 12/29/21 Loc: [facility] Room: Type: [facility] Attending Dr: Collette Morales MD Copies to: Collette Morales MD Ordering Provider: Collette Morales MD Date of Service: 12/29/21 XR/XR elbow [...] FRACTURE. Impression dictated by: Sudeep Zhao Jr., DAdalberto12/29/2021 11:31 AM Dictation Location: [place] [address] Transcribed By: [facility] 12/29/21 1131 Dictated By: Sudeep Zhao Jr, DO 12/29/21 1130 Signed By: 12/29/[address] [facility] CBC AUTO DIFFon 12-01-2021 BASO # 0.0 103/ul Normal 0.0-0.1 [facility] Comment on above: Performed By: #### C BC #### [facility] [address] [place] [address] Dr. Hayder Howell Basophils/100 WBC (Bld) 0.3 % Normal 0.2-2.0 [facility] Comment on above: Performed By: #### C BC #### [facility] [address] [place] [address] Dr. Hayder Howell EO # 0.0 103/ul Normal 0.0-0.7 [facility] Comment on above: Performed By: #### C BC #### [facility] [address] [place] [address] Dr. Hayder Howell Eosinophils/100 WBC (Bld) 0.3 % Critically low 0.9-7.0 [facility] Comment on above: Performed By: #### C BC #### [facility] [address] [place] [address] Dr. Hayder Howell Erythrocyte distribution width (RBC) [Ratio] 19.5 % Critically high 11.0-15.0 [facility] Comment on above: Performed By: #### C BC #### [facility] [address] [place] [address] Dr. Hayder Howell Hematocrit (Bld) [Volume fraction] 30.3 % Critically low 42.0-54.0 [facility] Comment on above: Performed By: #### C BC #### [facility] [address] [place] [address] Dr. Hayder Howell Hemoglobin (Bld) [Mass/Vol] 9.0 g/dL Critically low 14.0-18.0 [facility] Comment on above: Performed By: #### C BC #### [facility] [address] [place] [address] Dr. Hayder Howell IG # 0.02 10e3/ul Normal 0.00-0.03 [facility] Comment on above: Performed By: #### C BC #### [facility] [address] [place] [address] Dr. Hayder Howell IG % 0.3 % Normal 0.0-0.5 [facility] Comment on above: Performed By: #### C BC #### [facility] [address] [place] [address] Dr. Hayder Howell LYMPH # 1.2 103/ul Normal 1.2-3.8 [facility] Comment on above: Performed By: #### C BC #### [facility] [address] [place] [address] Dr. Hayder Howell Lymphocytes/100 WBC (Bld) 15.9 % Critically low 20.5-60.0 [facility] Comment on above: Performed By: #### C BC #### [facility] [address] [place] [address] Dr. Hayder Howell MANUAL DIFF REQ NO Normal [facility] Comment on above: Performed By: #### C BC #### [facility] [address] [place] [address] Dr. Hayder Howell MCH (RBC) [Entitic mass] 25.5 pg Critically low 25.9-34.0 [facility] Comment on above: Performed By: #### C BC #### [facility] [address] [place] [address] Dr. Hayder Howell MCHC (RBC) [Mass/Vol] 29.7 g/dL Critically low 29.9-35.2 [facility] Comment on above: Performed By: #### C BC #### [facility] [address] [place] [address] Dr. Hayder Howell MCV (RBC) [Entitic vol] 85.8 fL Normal 80.0-94.0 [facility] Comment on above: Performed By: #### C BC #### [facility] [address] [place] [address] Dr. Hayder Howell MONO # 0.9 103/ul Critically high 0.3-0.8 [facility] Comment on above: Performed By: #### C BC #### [facility] [address] [place] [address] Dr. Hayder Howell Monocytes/100 WBC (Bld) 11.9 % Normal 1.7-12.0 [facility] Comment on above: Performed By: #### C BC #### [facility] [address] [place] [address] Dr. Hayder Howell NEUT # 5.3 103/ul Normal 1.4-6.5 [facility] Comment on above: Performed By: #### C BC #### [facility] [address] [place] [address] Dr. Hayder Howell Neutrophils/100 WBC (Bld) 71.3 % Normal 43.0-75.0 [facility] Comment on above: Performed By: #### C BC #### [facility] [address] [place] [address] Dr. Hayder Howell Platelet mean volume (Bld) [Entitic vol] 8.8 fL Critically low 9.5-13.5 [facility] Comment on above: Performed By: #### C BC #### [facility] [address] [place] [address] Dr. Hayder Howell PLT 225 103/ul Normal 150-450 [facility] Comment on above: Performed By: #### C BC #### [facility] [address] [place] [address] Dr. Hayder Howell RBC 3.53 106/ul Critically low 4.70-6.10 [facility] Comment on above: Performed By: #### C BC #### [facility] [address] [place] [address] [address] Hayder Howell WBC 7.4 103/ul Normal 4.0-11.0 [facility] Comment on above: Performed By: #### C BC #### [facility] [address] [place] [address] [address] Hayder Howell ER URINE PROFILEon 2 Bilirubin Ql (U) Negative Normal NEGATIVE [facility] Comment on above: Performed By: #### U MICRO, ERUR #### [facility] [address] [place] [address] [address] Hayder Howell Clarity (U) CLEAR Normal CLEAR [facility] Comment on above: Performed By: #### U MICRO, ERUR #### [facility] [address] [place] [address] Dr. Hayder Howell Color (U) YELLOW Normal YELLOW [facility] Comment on above: Performed By: #### U MICRO, ERUR #### [facility] [address] [place] [address] Dr. Hayder Howell ERUAHD A micrscopic examination will be performed if indicated. Normal [facility] Comment on above: Performed By: #### U MICRO, ERUR #### [facility] [address] [place] [address] [address] Hayder Howell Glucose Ql (U) Negative Normal NEGATIVE [facility] Comment on above: Performed By: #### U MICRO, ERUR #### [facility] [address] [place] [address] [address] Hayder Howell Hemoglobin Ql (U) Negative Normal NEGATIVE [facility] Comment on above: Performed By: #### U MICRO, ERUR #### [facility] [address] [place] [address] [address] Hayder Howell Ketones Ql (U) Negative Normal NEGATIVE [facility] Comment on above: Performed By: #### U MICRO, ERUR #### [facility] [address] [place] [address] Dr. Hayder Howell LEUKOCYTES TRACE Abnormal NEGATIVE [facility] Comment on above: Performed By: #### U MICRO, ERUR #### [facility] [address] [place] [address] [address] Hayder Howell Nitrite Ql (U) Negative Normal NEGATIVE [facility] Comment on above: Performed By: #### U MICRO, ERUR #### [facility] [address] [place] [address] [address] Hayder Howell pH (U) 5.0 [pH] Normal 5-9 [facility] Comment on above: Performed By: #### U MICRO, ERUR #### [facility] [address] [place] [address] [address] Hayder Howell SPEC GRAVITY 1.025 Normal 1.005-<=1.025 [facility] Comment on above: Performed By: #### U MICRO, ERUR #### [facility] [address] [place] [address] Dr. Hayder Howell UA PROTEIN Negative Normal NEGATIVE/ TRACE [facility] Comment on above: Performed By: #### U MICRO, ERUR #### [facility] [address] [place] [address] [address] Hayder Howell UR MICRO IND INDICATED Normal [facility] Comment on above: Performed By: #### U MICRO, ERUR #### [facility] [address] [place] [address] Dr. Hayder Howell Urobilinogen Qn (U) 0.2 {[place]'U}/dL Normal 0.2 - 1.0 [facility] Comment on above: Performed By: #### U MICRO, ERUR #### [facility] [address] [place] [address] Dr. Hayder Howell PROF 14(COMP METB)on 022 Albumin [Mass/Vol] 3.0 g/dL Critically low 3.4-5.0 [facility] Comment on above: Performed By: #### C MP #### [facility] [address] [place] [address] Dr. Hayder Howell Albumin/Globulin [Mass ratio] 1.0 {ratio} Normal [facility] Comment on above: Performed By: #### C MP #### [facility] [address] [place] [address] [address] Hayder Howell ALP [Catalytic activity/Vol] 61 U/L Normal 46-116 [facility] Comment on above: Performed By: #### C MP #### [facility] [address] [place] [address] Dr. Hayder Howell ALT [Catalytic activity/Vol] 41 U/L Normal 16-63 [facility] Comment on above: Performed By: #### C MP #### [facility] [address] [place] [address] Dr. Hayder Howell Anion gap [Moles/Vol] 9.4 mmol/L Normal [facility] Comment on above: Performed By: #### C MP #### [facility] [address] [place] [address] Dr. Hayder Howell AST [Catalytic activity/Vol] 20 U/L Normal 15-37 [facility] Comment on above: Performed By: #### C MP #### [facility] [address] [place] [address] Dr. Hayder Howell Bilirubin [Mass/Vol] 1.0 mg/dL Normal 0.2-1.0 [facility] Comment on above: Performed By: #### C MP #### [facility] [address] [place] [address] Dr. Hayder Howell Calcium [Mass/Vol] 9.6 mg/dL Normal 8.5-10.1 [facility] Comment on above: Performed By: #### C MP #### [facility] [address] [place] [address] Dr. Hayder Howell Chloride [Moles/Vol] 106 mmol/L Normal 98-107 [facility] Comment on above: Performed By: #### C MP #### [facility] [address] [place] [address] Dr. Hayder Howell CO2 [Moles/Vol] 27.3 mmol/L Normal 21.0-32.0 [facility] Comment on above: Performed By: #### C MP #### [facility] [address] [place] [address] [address] Hayder Howell Creatinine [Mass/Vol] 0.71 mg/dL Normal 0.70-1.30 [facility] Comment on above: Performed By: #### C MP #### [facility] [address] [place] [address] [address] Hayder Howell EGFR-AF [place] >60 Normal >=60 [facility] Comment on above: Performed By: #### C MP #### [facility] [address] [address] [address] Hayder Howell EGFR-NON AF [place] >60 Normal >=60 [facility] Comment on above: Performed By: #### C MP #### [facility] [address] [address] [address] Hayder Howell Globulin (S) [Mass/Vol] 3.1 g/dL Normal [facility] Comment on above: Performed By: #### C MP #### [facility] [address] [address] [address] Hayder Howell Glucose [Mass/Vol] 172 mg/dL Critically high 74-106 [facility] Comment on above: Performed By: #### C MP #### [facility] [address] [place] [address] Dr. Hayder Howell Potassium [Moles/Vol] 3.7 mmol/L Normal 3.5-5.1 [facility] Comment on above: Performed By: #### C MP #### [facility] [address] [address] [address] Hayder Howell Protein [Mass/Vol] 6.1 g/dL Critically low 6.4-8.2 [facility] Comment on above: Performed By: #### C MP #### [facility] [address] [place] [address] Dr. Hayder Howell Sodium [Moles/Vol] 139 mmol/L Normal 136-145 [facility] Comment on above: Performed By: #### C MP #### [facility] [address] [place] [address] Dr. Hayder Howell Urea nitrogen [Mass/Vol] 13.0 mg/dL Normal 7.0-18.0 [facility] Comment on above: Performed By: #### C MP #### [facility] [address] [place] [address] Dr. Hayder Howell Urea nitrogen/Creatinin e [Mass ratio] 18.3 mg/mg Normal [facility] Comment on above: Performed By: #### C MP #### [facility] [address] [place] [address] Dr. Hayder Howell URINE MICROSCOPIC ONLYon BACTERIA NONE SEEN Normal NONE SEEN [facility] Comment on above: Performed By: #### U MICRO, ERUR #### [facility] [address] [place] [address] Dr. Hayder Howell Bacteria identified Cx Nom (U) NOT INDICATED Normal [facility] Comment on above: Performed By: #### U MICRO, ERUR #### [facility] [address] [place] [address] Dr. Hayder Howell CAST NONE SEEN Normal NONE SEEN [facility] Comment on above: Performed By: #### U MICRO, ERUR #### [facility] [address] [place] [address] Dr. Hayder Howell Crystals LM Nom (Urine sed) NONE SEEN Normal NONE SEEN [facility] Comment on above: Performed By: #### U MICRO, ERUR #### [facility] [address] [place] [address] Dr. Hayder Howell Epithelial cells LM Ql (Urine sed) RARE Normal NONE SEEN /RARE [facility] Comment on above: Performed By: #### U MICRO, ERUR #### [facility] [address] [place] [address] Dr. Hayder Howell MUCOUS NONE SEEN Normal NONE SEEN [facility] Comment on above: Performed By: #### U MICRO, ERUR #### [facility] [address] [place] [address] Dr. Hayder Howell RBC 0-2 Normal 0-2 [facility] Comment on above: Performed By: #### U MICRO, ERUR #### [facility] [address] [address] [address] Hayder Howell WBC 0-2 Abnormal NONE SEEN [facility] Comment on above: Performed By: #### U MICRO, ERUR #### [facility] [address] [place] [address] Dr. Hayder Howell XR RIBS BIL_PA CH [...] DEBBI GUPTA Date: 2021-12-01 09:59 Normal [facility] Vital Signs Date Time Vital Sign Value Performing Clinician Gurdeep miller 12-28-2023 10:040 Body height 177.8 cm M.D. Percy Mercer Work Phone: [facility] 12-28-2023 10:040 Body mass index (BMI) [Ratio] 29.5 kg/m2 M.D. Percy Mercer Work Phone: [facility] 12-28-2023 10:040 Body weight 93.44 kg M.D. Percy Mercer Work Phone: [facility] 12-28-2023 10:040 Diastolic blood pressure 64 mm[Hg] M.D. Percy Mercer Work Phone: [facility] 12-28-2023 10:040 Heart rate 61 /min M.D. Percy Mercer Work Phone: [facility] 12-28-2023 10:26-040 SaO2% (BldA) [Mass fraction] 99 % RosauraMakJesus Mercer Work Phone: [facility] 12-28-2023 10: Systolic blood pressure 102 mm[Hg] RosauraMakJesus Mercer Work Phone: [facility] Encounters Encounter Date Encounter Type Care Provider Facility Start: 12-28-2023 End: 12-28-2023 ambulatory RosauraEliza Roaald Sylvie Work Phone: [facility] Work Phone: Start: 12-28-2023 End: 12-28-2023 Patient encounter procedure RosauraEliza oRaald Sylvie Work Phone: [facility] Work Phone: Start: 08-08-2023 End: 08-08-2023 ambulatory ANYI GARCIA Not Available Start: 08-01-2023 Telephone encounter Anyi calvin [employer] Work Phone: [facility] Comment on above: Lab Orders Start: 01-24-2023 Patient encounter status Anyi Garcia [employer] Work Phone: [facility] Start: 06-09-2022 End: 06-10-2022 ambulatory ANYI GARCIA Facility: Start: 01-06-2022 End: 01-07-[address] NONE LISTED REQUEST Facility: Start: 01-01-2022 End: 01-01-2022 ambulatory Charlee Shields Other [facility] Other Start: 01-01-2022 Telephone encounter Charlee Shields [facility] Start: 12-29-2021 End: 12-29-2021 ambulatory Collette Olexa Other [facility] Other Start: 12-29-2021 Postop follow up vis it related to original px Collette Pavelxa [facility] Start: 12-08-2021 End: 12-09-2021 ambulatory COLLETTE OLEXA [facility] Other Start: 12-08-2021 FQ visit new patient Collette Martin [facility] Start: 12-01-2021 End: 12-01-[address] NONE LISTED REQUEST Facility: Start: 03-23-1988 Evaluation and management of inpatient Rosaura.Curtis Mercer Work Phone: [facility] Plan of Treatment Date Care Activity Detail Author Start: 10-17-2023 End: 10-17-2023 Patient encounter procedure 10/17/2023 1:00 PM EDT Office Visit [facility] [address] [facility] [address] [place] [address] Errol Nickerson MD [address] [facility] [address] Valentine [address] [place] [address] [id number] [facility] Start: 08-08-2023 End: 08-08-2023 Patient encounter procedure 08/08/2023 11:00 AM EST Office Visit [facility] [address] [facility] [address] [place] [id number] Anyi Garcia NP [address] [facility] [address] [place] [address] [facility] Start: 08-01-2023 End: 08-01-2024 Calcium [Mass/volume] in Serum or Plasma Calcium Lab Routine Age-related osteoporosis without current pathological fracture (CMS/HCC) Expected: 08/01/2023 (Approximate), Expires: 08/01/2024 [facility] Work Phone: Comment on above: Expected: 08/01/2023 (Approximate), Expires: 08/01/2024 Start: 03-04-2023 Influenza vaccination Influenza Vacc ine (#1) [facility] Immunizations Immunization Date Immunization Notes Care Provider Fa [facility] 04-10-2021 influenza virus vacc ine, unspecified formulation Anyi Garcia NP Work Phone: [facility] 12-08-2020 pneumococcal polysaccharide vaccine, 23 valent Anyi Garcia [employer] Work Phone: [facility] 08-05-2020 influenza, injectabl e, quadrivalent, preservative free Anyi Garcia [employer] Work Phone: [facility] Payers Date Payer Category Payer [facility] Care O (unspecified) MELISSA TORRES [id number] 2001-Present [address] [place] [address] [facility] [id number] 1959 Private Health Insurance [id number] 1959 Self-pay 1940 Unknown [id number] 1942 Unknown [id number] 1942 Unknown [id number] 1942 Unknown [id number] Unknown [id number] Social History Date Type Detail Facility Start: 03-28-2023 Sex Assigned At [facility] Other Start: 01-12-2023 End: 12-28-2023 Tobacco smoking status MDIS Ex-smoker [facility] End: 07-04-1972 History of tobacco use Current smoker [facility] End: 07-04-1972 History of tobacco use Cigarette Smoker [facility] Start: 01-12-2023 Tobacco use and exposure Smokeless tobacco non-user [facility] Start: 07-22-2023 Alcohol intake Ex-drinker (finding) [facility] Start: 03-28-2023 History of Social function [facility] Start: 01-12-2023 Alcohol Comment stopped drinking 198 0s? [facility] Start: 1940 Sex Assigned At Male [facility] Start: 03-28-2023 Gender identity Identifies as male gender (finding) [facility] Medical Equipment Procedure Code Equipment Code Equipment Origin al Text Equipment Identifier Dates BD Pen Needle Na no U/F 32G X 4 MM [id number] Start: 12-15-2022 Clinical Notes 12-01-2021 to 08-05-2023 Telephone Encounter - Helen Tamayo - 08/05/2023 11:14 AM ESTTelephone Encounter - Helen Tamayo - 08/05/2023 11:14 AM ESTTelephone Encounter - Helen Tamayo - 08/05/2023 11:06 AM EST Note Date & Type Note Facility 08-05-2023 Telephone encounter Note Form atting of this note might be different from the original. Patient just stopped in to [facility] and I printed the signed order for him to take back to [facility] for his lab. [facility] 08-05-2023 Miscellaneous Notes Formattin g of this note might be different from the original. Patient just stopped in to [facility] and I printed the signed order for him to take back to [facility] for his lab. Patient called and stated he is at [facility] for calcium lab since he is to have a Prolia shot Tuesday, but [facility] doesn't have the order and he would like us to refax it. Patient's call back is [phone]. Please advise, thank you documented in this encounter [facility] 08-05-2023 Telephone encounter Note Form atting of this note might be different from the original. Patient called and stated he is at [facility] for calcium lab since he is to have a Prolia shot Tuesday, but [facility] doesn't have the order and he would like us to refax it. Patient's call back is [phone]. Please advise, thank you [facility] 12-29-2021 Evaluation note Encounter Date Diagnosis Assessment Notes Dec, Closed fracture of olecranon process of left ulna with routine healing, subsequent encounter (ICD-10 - S52.022D) Radiographs reviewed with patient today. Discussed with patient to continue to wear splint and use sling for protection when out of the home. Discussed with patient he can progress to range of motion exercises. [facility] Other 06-08-2022 NotePROCEDURE: XR ELBOW LT 2V [...] Electronically authenticated by: DEBBI GUPTA Date: 2021-12-09 07:01[facility]06-07-2022 Evaluation note* Encounter Date Diagnosis Assessment [...] six weeks to obtain early healing and krsity require months of motion and strength exercise afterwards. 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 Discussed with patient to call if he would like home health Since there is not significant displacement and he states he is very limited with normal activities in general I think that nonoperative treatment will be adequate. [facility] Other 05-31-2022 NotePROCEDURE: XR ELBOW LT 2V [...] Electronically authenticated by: DEBBI GUPTA Date: 2021-12-01 11:06[facility]05-31-2022 NotePROCEDURE: XR ELBOW LT MIN 3 [...] Electronically authenticated by: DEBBI GUPTA Date: 2021-12-01 10:01[facility]05-31-2022 NotePROCEDURE: XR HIP LT 2 3V [...] Electronically authenticated by: DEBBI GUPTA Date: 2021-12-01 09:56[facility] noteNo InformationNort[facility] Other Evaluation note* Diagnosis Age-related osteoporosis without current pathological fracture (CMS/HCC)- Primary Age-related osteoporosis without current pathological fracture (CMS/HCC)- Primary [facility] Diagnosis Onset Date Resolution Status CAD (coronary artery disease) acute Hyperlipidemia acute Hypertension acute Myasthenia gravis acute Tinea acute Type 2 diabetes mellitus acu te UTI (urinary tract infection) acute [facility] Work Phone: History general Narrative - Reported* Type Description Date Medical History hypertension Medical History hyperlipidemia [facility] Other Summary Purpose Family History Relationship Condition Age at Onset Recorded Date/T my father Unknown mother Unknown Advance Directives Advance Directive Response Recorded Date/ Time Advance Directives No December 29 1:30pm Chief Complaint and Reason for Visit Chief Complaint est care, TBH follow up e-coli Reason for Visit CAD (coronary artery disease) Hyperlipidemia Hypertension Myasthenia gravis Tinea Type 2 diabetes mellitus UTI (urinary tract infection) Additional Source Comments REASON FOR VISIT (unrecogniz ed section and content) Reason Onset Date Comments Lab Orders 08/01/2023 (unrecognized sect ion and content) No Status Records FoundNo Status Records FoundNo Status Records Found INFORMATION SOURCE (unrecogn ized section and content) DATE CREATED AUTHOR 01/09/2022 [facility] DATE CREATED AUTHOR AUTHOR'S ORGANIZ ATION [facility]12/2022 [facility] DATE CREATED AUTHOR AUTHOR'S ORGANIZ ATION 08/09/2023 [facility] [employer]IC Care Teams (unrecognized sec tion and content) Team Status: Active Member Role Status Dates Charlee Christie APRN NP-C Primary Care Provider Active Team Status: Active Member Role Status Dates Percy Mercer M.D. Attending Provider Active Start: March 23, 1988 Team Status: Inactive Member Role Status Dates MALINA Hammer Primary Care Provider, Attending Provider Active Start: December 28, 2023 End: December 28, 2023 Goals (unrecognized section and content) Goals may be documented in a n alternate section FOR RECORDS PERTAINING TO PATIENTS WHO ARE [...] BE BASED ON THE PRIMARY CLINICAL RECORDS. [employer] provides no warranty or guarantee of the accuracy or completeness of information in this document.
[2024-01-02 09:21] LABS: Calcium 9.4 mg/dL (8.5-10.1)
== END 2024-01-02 08:33 | disposition home or self-care (01) ==
LOC: LAB 08:34
PROVIDERS: PCP Nurse Practitioner Family; Visit Provider Nurse Practitioner Family
DX: M81.0 Age-related osteoporosis without current pathological fracture (principal)
CPT/HCPCS: 36415; 82310

== ENCOUNTER 2024-01-02 09:00 | Outpatient (OUT) | payer OTHER, SELFPAY ==
--- OUTSIDE RECORDS SUMMARY | 2024-01-02 09:23 | XMS_ITS | CCD ---
Author Organization [facility] Care Team Providers Care Terminal Manager Name Role Phone Collette Morales Unavailable Charlee [...] (1 source) ceFAZolin Drug Allergy 11-25-2022 Other [facility] Work Phone: (1 source) Sulfonamides (Antibiotic) Drug Allergy 02-04-2017 Rash [facility] Medications Current Medications Medication Drug Class(es) [...] 180 mg by mouth twice daily Pyridostigmine [place] Active 180 MG PO Twice daily December 27, 2023 7:50am Start: 12-09-2023 End: 12-27-2023 Pyridostigmine [place] Disco ntinued MG PO December 09, 2023 [...] Coronary atherosclerosis; Translations: [Atherosclerotic heart disease of [place] coronary artery without angina pectoris] Onset: 12-18-2014 [...] 04-15-2021 01-24-2023 Episodic Other aftercare (1 source) [facility] (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; Translations: [[facility] CURRENT USE OF ASPIRIN] Onset: 12-07-2021 Episodic Other aftercare (1 source) Other emt intermediate (current) drug therapy; Translations: [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 Hayder Howell XR elbow LT 2Von 12-29-2021 XR elbow LT 2V [facility] [place] [address] XRay Report Signed Patient: Jamal Arrieta V MR#: [id number] : 1940 Acct:[id number] Age/Sex: 81 / M ADM Date: 12/29/21 Loc: [facility] Room: Type: [facility] Attending Dr: Collette Morales MD Copies [...] Zhao Jr., DAdalberto12/29/2021 11:31 AM Dictation Location: [place] [address] Transcribed By: [facility] 12/29/21 1131 Dictated By: Sudeep Zhao Jr, DO 12/29/21 1130 Signed By: 12/29/21 1131 [facility] CBC AUTO DIFFon 12-01-2021 BASO # 0.0 103/ul Normal 0.0-0.1 [facility] Comment on above: Performed By: #### C BC #### [facility] [address] [place] [address] Dr. Hayder Howell Basophils/100 WBC (Bld) 0.3 % Normal 0.2-2.0 [facility] Comment on above: Performed By: #### C BC #### [facility] [address] [place] [address] Dr. Hayder Howell EO # 0.0 103/ul Normal 0.0-0.7 [facility] Comment on above: Performed By: #### C BC #### [facility] [address] [place] [address] Dr. Hayder Howell Eosinophils/100 WBC (Bld) 0.3 % Critically low 0.9-7.0 [facility] Comment on above: Performed By: #### C BC #### [facility] [address] [place] [address] Dr. Hayder Howell Erythrocyte distribution width (RBC) [Ratio] 19.5 % Critically high 11.0-15.0 [facility] Comment on above: Performed By: #### C BC #### [facility] [address] [place] [address] Dr. Hayder Howell Hematocrit (Bld) [Volume fraction] 30.3 % Critically low 42.0-54.0 [facility] Comment on above: Performed By: #### C BC #### [facility] [address] [place] [address] Dr. Hayder Howell Hemoglobin (Bld) [Mass/Vol] 9.0 g/dL Critically low 14.0-18.0 [facility] Comment on above: Performed By: #### C BC #### [facility] [address] [place] [address] Dr. Hayder Howell IG # 0.02 10e3/ul Normal 0.00-0.03 [facility] Comment on above: Performed By: #### C BC #### [facility] [address] [place] [address] Dr. Hayder Howell IG % 0.3 % Normal 0.0-0.5 [facility] Comment on above: Performed By: #### C BC #### [facility] [address] [place] [address] Dr. Hayder Howell LYMPH # 1.2 103/ul Normal 1.2-3.8 [facility] Comment on above: Performed By: #### C BC #### [facility] [address] [place] [address] Dr. Hayder Howell Lymphocytes/100 WBC (Bld) 15.9 % Critically low 20.5-60.0 [facility] Comment on above: Performed By: #### C BC #### [facility] [address] [place] [address] Dr. Hayder Howell MANUAL DIFF REQ NO Normal [facility] Comment on above: Performed By: #### C BC #### [facility] [address] [place] [address] Dr. Hayder Howell MCH (RBC) [Entitic mass] 25.5 pg Critically low 25.9-34.0 [facility] Comment on above: Performed By: #### C BC #### [facility] [address] [place] [address] Dr. Hayder Howell MCHC (RBC) [Mass/Vol] 29.7 g/dL Critically low 29.9-35.2 [facility] Comment on above: Performed By: #### C BC #### [facility] [address] [place] [address] Dr. Hayder Howell MCV (RBC) [Entitic vol] 85.8 fL Normal 80.0-94.0 [facility] Comment on above: Performed By: #### C BC #### [facility] [address] [place] [address] Dr. Hayder Howell MONO # 0.9 103/ul Critically high 0.3-0.8 [facility] Comment on above: Performed By: #### C BC #### [facility] [address] [place] [address] Dr. Hayder Howell Monocytes/100 WBC (Bld) 11.9 % Normal 1.7-12.0 [facility] Comment on above: Performed By: #### C BC #### [facility] [address] [place] [address] Dr. Hayder Howell NEUT # 5.3 103/ul Normal 1.4-6.5 [facility] Comment on above: Performed By: #### C BC #### [facility] [address] [place] [address] Dr. Hayder Howell Neutrophils/100 WBC (Bld) 71.3 % Normal 43.0-75.0 [facility] Comment on above: Performed By: #### C BC #### [facility] [address] [place] [address] Dr. Hayder Howell Platelet mean volume (Bld) [Entitic vol] 8.8 fL Critically low 9.5-13.5 [facility] Comment on above: Performed By: #### C BC #### [facility] [address] [place] [address] Dr. Hayder Howell PLT 225 103/ul Normal 150-450 [facility] Comment on above: Performed By: #### C BC #### [facility] [address] [place] [address] Dr. Hayder Howell RBC 3.53 106/ul Critically low 4.70-6.10 [facility] Comment on above: Performed By: #### C BC #### [facility] [address] [place] [address] [address] Hayder Howell WBC 7.4 103/ul Normal 4.0-11.0 [facility] Comment on above: Performed By: #### C BC #### [facility] [address] [place] [address] [address] Hayder Howell ER URINE PROFILEon 2 Bilirubin Ql (U) Negative Normal NEGATIVE [facility] Comment on above: Performed By: #### U MICRO, ERUR #### [facility] [address] [place] [address] [address] Hayder Howell Clarity (U) CLEAR Normal CLEAR [facility] Comment on above: Performed By: #### U MICRO, ERUR #### [facility] [address] [place] [address] Dr. Hayder Howell Color (U) YELLOW Normal YELLOW [facility] Comment on above: Performed By: #### U MICRO, ERUR #### [facility] [address] [place] [address] Dr. Hayder Howell ERUAHD A micrscopic examination will be performed if indicated. Normal [facility] Comment on above: Performed By: #### U MICRO, ERUR #### [facility] [address] [place] [address] [address] Hayder Howell Glucose Ql (U) Negative Normal NEGATIVE [facility] Comment on above: Performed By: #### U MICRO, ERUR #### [facility] [address] [place] [address] [address] Hayder Howell Hemoglobin Ql (U) Negative Normal NEGATIVE [facility] Comment on above: Performed By: #### U MICRO, ERUR #### [facility] [address] [place] [address] [address] Hayder Howell Ketones Ql (U) Negative Normal NEGATIVE [facility] Comment on above: Performed By: #### U MICRO, ERUR #### [facility] [address] [place] [address] Dr. Hayder Howell LEUKOCYTES TRACE Abnormal NEGATIVE [facility] Comment on above: Performed By: #### U MICRO, ERUR #### [facility] [address] [place] [address] [address] Hayder Howell Nitrite Ql (U) Negative Normal NEGATIVE [facility] Comment on above: Performed By: #### U MICRO, ERUR #### [facility] [address] [place] [address] [address] Hayder Howell pH (U) 5.0 [pH] Normal 5-9 [facility] Comment on above: Performed By: #### U MICRO, ERUR #### [facility] [address] [place] [address] [address] Hayder Howell SPEC GRAVITY 1.025 Normal 1.005-<=1.025 [facility] Comment on above: Performed By: #### U MICRO, ERUR #### [facility] [address] [place] [address] Dr. Hayder Howell UA PROTEIN Negative Normal NEGATIVE/ TRACE [facility] Comment on above: Performed By: #### U MICRO, ERUR #### [facility] [address] [place] [address] [address] Hayder Howell UR MICRO IND INDICATED Normal [facility] Comment on above: Performed By: #### U MICRO, ERUR #### [facility] [address] [place] [address] Dr. Hayder Howell Urobilinogen Qn (U) 0.2 {[place]'U}/dL Normal 0.2 - 1.0 [facility] Comment on above: Performed By: #### U MICRO, ERUR #### [facility] [address] [place] [address] Dr. Hayder Howell PROF 14(COMP METB)on 022 Albumin [Mass/Vol] 3.0 g/dL Critically low 3.4-5.0 [facility] Comment on above: Performed By: #### C MP #### [facility] [address] [place] [address] Dr. Hayder Howell Albumin/Globulin [Mass ratio] 1.0 {ratio} Normal [facility] Comment on above: Performed By: #### C MP #### [facility] [address] [place] [address] [address] Hayder Howell ALP [Catalytic activity/Vol] 61 U/L Normal 46-116 [facility] Comment on above: Performed By: #### C MP #### [facility] [address] [place] [address] Dr. Hayder Howell ALT [Catalytic activity/Vol] 41 U/L Normal 16-63 [facility] Comment on above: Performed By: #### C MP #### [facility] [address] [place] [address] Dr. Hayder Howell Anion gap [Moles/Vol] 9.4 mmol/L Normal [facility] Comment on above: Performed By: #### C MP #### [facility] [address] [place] [address] Dr. Hayder Howell AST [Catalytic activity/Vol] 20 U/L Normal 15-37 [facility] Comment on above: Performed By: #### C MP #### [facility] [address] [place] [address] Dr. Hayder Howell Bilirubin [Mass/Vol] 1.0 mg/dL Normal 0.2-1.0 [facility] Comment on above: Performed By: #### C MP #### [facility] [address] [place] [address] Dr. Hayder Howell Calcium [Mass/Vol] 9.6 mg/dL Normal 8.5-10.1 [facility] Comment on above: Performed By: #### C MP #### [facility] [address] [place] [address] Dr. Hayder Howell Chloride [Moles/Vol] 106 mmol/L Normal 98-107 [facility] Comment on above: Performed By: #### C MP #### [facility] [address] [place] [address] Dr. Hayder Howell CO2 [Moles/Vol] 27.3 mmol/L Normal 21.0-32.0 [facility] Comment on above: Performed By: #### C MP #### [facility] [address] [place] [address] [address] Hayder Howell Creatinine [Mass/Vol] 0.71 mg/dL Normal 0.70-1.30 [facility] Comment on above: Performed By: #### C MP #### [facility] [address] [place] [address] [address] Hayder Howell EGFR-AF BOTSWANAN >60 Normal >=60 [facility] Comment on above: Performed By: #### C MP #### [facility] [address] [place] [address] [address] Hayder Howell EGFR-NON AF BOTSWANAN >60 Normal >=60 [facility] Comment on above: Performed By: #### C MP #### [facility] [address] [place] [address] [address] Hayder Howell Globulin (S) [Mass/Vol] 3.1 g/dL Normal [facility] Comment on above: Performed By: #### C MP #### [facility] [address] [place] [address] [address] Hayder Howell Glucose [Mass/Vol] 172 mg/dL Critically high 74-106 [facility] Comment on above: Performed By: #### C MP #### [facility] [address] [place] [address] Dr. Hayder Howell Potassium [Moles/Vol] 3.7 mmol/L Normal 3.5-5.1 [facility] Comment on above: Performed By: #### C MP #### [facility] [address] [place] [address] [address] Hayder Howell Protein [Mass/Vol] 6.1 g/dL Critically low 6.4-8.2 Th [facility] Comment on above: Performed By: #### C MP #### [facility] [address] [place] [address] Dr. Hayder Howell Sodium [Moles/Vol] 139 mmol/L Normal 136-145 [facility] Comment on above: Performed By: #### C MP #### [facility] [address] [place] [address] Dr. Hayder Howell Urea nitrogen [Mass/Vol] 13.0 mg/dL Normal 7.0-18.0 [facility] Comment on above: Performed By: #### C MP #### [facility] [address] [place] [address] Dr. Hayder Howell Urea nitrogen/Creatinin e [Mass ratio] 18.3 mg/mg Normal [facility] Comment on above: Performed By: #### C MP #### [facility] [address] [place] [address] Dr. Hayder Howell URINE MICROSCOPIC ONLYon BACTERIA NONE SEEN Normal NONE SEEN [facility] Comment on above: Performed By: #### U MICRO, ERUR #### [facility] [address] [place] [address] Dr. Hayder Howell Bacteria identified Cx Nom (U) NOT INDICATED Normal [facility] Comment on above: Performed By: #### U MICRO, ERUR #### [facility] [address] [place] [address] Dr. Hayder Howell CAST NONE SEEN Normal NONE SEEN [facility] Comment on above: Performed By: #### U MICRO, ERUR #### [facility] [address] [place] [address] Dr. Hayder Howell Crystals LM Nom (Urine sed) NONE SEEN Normal NONE SEEN [facility] Comment on above: Performed By: #### U MICRO, ERUR #### [facility] [address] [place] [address] Dr. Hayder Howell Epithelial cells LM Ql (Urine sed) RARE Normal NONE SEEN /RARE [facility] Comment on above: Performed By: #### U MICRO, ERUR #### [facility] [address] [place] [address] Dr. Hayder Howell MUCOUS NONE SEEN Normal NONE SEEN [facility] Comment on above: Performed By: #### U MICRO, ERUR #### [facility] [address] [place] [address] Dr. Hayder Howell RBC 0-2 Normal 0-2 [facility] Comment on above: Performed By: #### U MICRO, ERUR #### [facility] [address] [place] [address] [address] Hyader Howell WBC 0-2 Abnormal NONE SEEN [facility] Comment on above: Performed By: #### U MICRO, ERUR #### [facility] [address] [place] [address] Dr. Hayder Howell XR RIBS BIL_PA CH [...] Date: 2021-12-01 09:59 Normal [facility] Vital Signs Date Time Vital Sign Value Performing Clinician Gurdeep miller 12-28-2023 10:040 Body height 177.8 cm M.D. Percy Mercer Work Phone: [facility] 12-28-2023 10:040 Body mass index (BMI) [Ratio] 29.5 kg/m2 M.D. Percy Mercer Work Phone: [facility] 12-28-2023 10:040 Body weight 93.44 kg M.D. Percy Mercer Work Phone: [facility] 12-28-2023 10:040 Diastolic blood pressure 64 mm[Hg] M.D. Percy Mercer Work Phone: [facility] 12-28-2023 10:040 Heart rate 61 /min M.D. Percy Mercer Work Phone: [facility] 12-28-2023 10:26-040 SaO2% (BldA) [Mass fraction] 99 % RosauraMakJesus Mercer Work Phone: [facility] 12-28-2023 10: Systolic blood pressure 102 mm[Hg] RosauraMakJesus Mercer Work Phone: [facility] Encounters Encounter Date Encounter Type Care Provider Facility Start: 12-28-2023 End: 12-28-2023 ambulatory RosauraEliza Roaald Sylvie Work Phone: [facility] Work Phone: Start: 12-28-2023 End: 12-28-2023 Patient encounter procedure RosauraEliza Roaald Sylvie Work Phone: [facility] Work Phone: Start: 08-08-2023 End: 08-08-2023 ambulatory ANYI GARCIA Not Available Start: 08-01-2023 Telephone encounter Anyi calvin RELIEF MASTER Work Phone: [facility] Comment on above: Lab Orders Start: 01-24-2023 Patient encounter status Anyi Garcia RELIEF MASTER Work Phone: [facility] Start: 06-09-2022 End: 06-10-2022 ambulatory ANYI GARCIA Facility: Start: 01-06-2022 End: 01-07-[address] NONE LISTED REQUEST Facility: Start: 01-01-2022 End: 01-01-2022 ambulatory Charlee Shields Other [employer] Other Start: 01-01-2022 Telephone encounter Charlee Shields [facility] Start: 12-29-2021 End: 12-29-2021 ambulatory Collette Olexa Other [employer] Other Start: 12-29-2021 Postop follow up vis it related to original px Collette Pavelxa [facility] Start: 12-08-2021 End: 12-09-2021 ambulatory COLLETTE OLEXA [facility] Other Start: 12-08-2021 FQ visit new patient Collette Martin [facility] Start: 12-01-2021 End: 12-01-[address] NONE LISTED REQUEST Facility: Start: 03-23-1988 Evaluation and management of inpatient Rosaura.Curtis Mercer Work Phone: [facility]- Plan of Treatment Date Care Activity Detail Author Start: 10-17-2023 End: 10-17-2023 Patient encounter procedure 10/17/2023 1:00 PM EDT Office Visit [facility] [address] [facility] [address] [place] [address] Errol Nickerson MD [address] [facility] [address] [place] [address] [id number] [facility] Start: 08-08-2023 End: 08-08-2023 Patient encounter procedure 08/08/2023 11:00 AM EST Office Visit [facility] [address] [facility] [address] [place] [id number] Anyi Garcia NP [address] [facility] [address] [place] [address] [facility] Start: 08-01-2023 End: 08-01-2024 Calcium [Mass/volume] in Serum or Plasma Calcium Lab Routine Age-related osteoporosis without current pathological fracture (CMS/HCC) Expected: 08/01/2023 (Approximate), Expires: 08/01/2024 [facility] Work Phone: Comment on above: Expected: 08/01/2023 (Approximate), Expires: 08/01/2024 Start: 03-04-2023 Influenza vaccination Influenza Vacc ine (#1) [facility] Immunizations Immunization Date Immunization Notes Care Provider Fa [facility] 04-10-2021 influenza virus vacc ine, unspecified formulation Anyi Garcia NP Work Phone: [facility] 12-08-2020 pneumococcal polysaccharide vaccine, 23 valent Anyi Garcia RELIEF MASTER Work Phone: [facility] 08-05-2020 influenza, injectabl e, quadrivalent, preservative free Anyi Garcia RELIEF MASTER Work Phone: [facility] Payers Date Payer Category Payer [facility] O (unspecified) MELISSA TORRES [id number] 2001-Present [address] [place] [address] [facility] [id number] 1959 Private Health Insurance [id number] 1959 Self-pay 1940 Unknown [id number] 1940 Unknown [id number] 1940 Unknown [id number] 1940 Unknown [id number] Unknown [id number] Social History Date Type Detail Facility Start: 03-28-2023 Sex Assigned At [facility] Other Start: 01-12-2023 End: 12-28-2023 Tobacco smoking status CAIS Ex-smoker [facility] End: 07-04-1972 History of tobacco use Current smoker [facility] End: 07-04-1972 History of tobacco use Cigarette Smoker [facility] Start: 01-12-2023 Tobacco use and exposure Smokeless tobacco non-user [facility] Start: 07-22-2023 Alcohol intake Ex-drinker (finding) [facility] Start: 03-28-2023 History of Social function [facility] Start: 01-12-2023 Alcohol Comment stopped drinking 198 0s? [facility] Start: 1940 Sex Assigned At Male [facility] Start: 03-28-2023 Gender identity Identifies as male gender (finding) [facility] Medical Equipment Procedure Code Equipment Code Equipment Origin al Text Equipment Identifier Dates BD Pen Needle Na no U/F 32G X 4 MM [facility] [id number] Start: 12-15-2022 Clinical Notes 12-01-2021 to 08-05-2023 [...] order for him to take back to [facility] for his lab. [facility] 08-05-2023 Miscellaneous Notes Formattin g of this note might be different from the original. Patient just stopped in to [place] [facility] and I printed the signed order for him to take back to [facility] for his lab. Patient called and stated he is at [facility] for calcium lab since he is to have a Prolia shot Tuesday, but [facility] doesn't have the order and he would like us to refax it. Patient's call back is [phone]. Please advise, thank you documented in this encounter [facility] 08-05-2023 Telephone encounter Note Form atting of this note might be different from the original. Patient called and stated he is at [facility] for calcium lab since he is to have a Prolia shot Tuesday, but [facility] doesn't have the order and he would like us to refax it. Patient's call back is [phone]. Please advise, thank you [facility] 12-29-2021 Evaluation note Encounter Date Diagnosis Assessment Notes Dec, Closed fracture of olecranon process of left ulna with routine healing, subsequent encounter (ICD-10 - S52.022D) Radiographs reviewed with patient today. Discussed with patient to continue to wear splint and use sling for protection when out of the home. Discussed with patient he can progress to range of motion exercises. [employer] Other 06-08-2022 NotePROCEDURE: XR ELBOW LT 2V [...] Electronically authenticated by: DEBBI GUPTA Date: 2021-12-09 07:01[facility]06-07-20[facility] Evaluation note* Encounter Date Diagnosis Assessment [...] discussed that this injury can lead to emt intermediate elbow pain and stiffness. Discussed with patient to call if he would like home health Since there is not significant displacement and he states he is very limited with normal activities in general I think that nonoperative treatment will be adequate. [employer] Other 05-31-2022 NotePROCEDURE: XR ELBOW LT 2V [...] Electronically authenticated by: DEBBI GUPTA Date: 2021-12-01 11:06[facility]05-31-2022 NotePROCEDURE: XR ELBOW LT MIN 3 [...] Electronically authenticated by: DEBBI GUPTA Date: 2021-12-01 10:01[facility]05-31-2022 NotePROCEDURE: XR HIP LT 2 3V [...] Electronically authenticated by: DEBBI GUPTA Date: 2021-12-01 09:56[facility] Other Evaluation note* Diagnosis Age-related osteoporosis without current pathological fracture (CMS/HCC)- Primary Age-related osteoporosis without current pathological fracture (CMS/HCC)- Primary documented in this encounter [facility] Diagnosis Onset Date Resolution Status CAD (coronary artery disease) acute Hyperlipidemia acute Hypertension acute Myasthenia gravis acute Tinea acute Type 2 diabetes mellitus acu te UTI (urinary tract infection) acute [facility] Work Phone: History general Narrative - Reported* Type Description Date Medical History hypertension Medical History hyperlipidemia [facility] Other Summary Purpose Family History Relationship Condition [...] section and content) DATE CREATED AUTHOR 01/09/2022 [facility] DATE CREATED AUTHOR AUTHOR'S ORGANIZ ATION 06/12/2022 [facility] DATE CREATED AUTHOR AUTHOR'S ORGANIZ ATION 08/09/2023 [facility] EPIC Care Teams (unrecognized sec [...] BE BASED ON THE PRIMARY CLINICAL RECORDS. [employer] provides no warranty or guarantee of the accuracy or completeness of information in this document.
[2024-01-02 09:37] LABS: Hemoglobin 11.9 g/dL (14.0-18.0)
== END 2024-01-02 09:01 | disposition home or self-care (01) ==
LOC: LAB 09:01
PROVIDERS: PCP Nurse Practitioner Family; Visit Provider Psychiatry & Neurology Neurology
DX: M81.0 Age-related osteoporosis without current pathological fracture (principal); G70.00 Myasthenia gravis without (acute) exacerbation
CPT/HCPCS: 36415; 82310; 83540; 85018

== ENCOUNTER 2024-02-28 13:01 | Outpatient (OUT) | payer OTHER, SELFPAY ==
[2024-02-28 13:22] LABS: Estimated GFR (African America >60 (>=60); Estimated GFR (Non-African Ame >60 (>=60)
--- NOTE | 2024-02-28 14:00 | CT_ITS ---
[address] [address] Patient Name: COTY GARCIA MRN: [id number] date: 1940 Sex: M Assigned Patient Location: LAB Current Patient Location: Accession/Order Number: [id number] Exam Date: 02/28/2024 13:39 Report Date: 02/29/2024 09:24 At the request of: ANYI Mckinney APLING Procedure: CT femur RT wo/w con EXAMINATION: CT femur RT wo/w con HISTORY: Age Related Osteoporosis, Right Femur Pain COMPARISON: No relevant comparison available. TECHNIQUE: Multi-planar CT images were created without and/or with IV contrast according to examination type. Dose reduction techniques were achieved by using automated exposure control and/or adjustment of mA and/or kV according to patient size and/or use of iterative reconstruction technique. FINDINGS: BONES: Mild narrowing of the superior aspect of the hip joint space. Small degenerative osteophyte along the superior rim of the acetabulum. No fracture, dislocation, bone lesion. Mild-moderate degenerative changes of the knee joint. SOFT TISSUES: Negative. No visible soft tissue swelling. EFFUSION: None visible. OTHER: Moderate atherosclerotic disease of the femoral artery. Marked atherosclerotic disease of popliteal and proximal calf arteries. CT/CT femur RT wo/w con IMPRESSION: 1. 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 No acute bone abnormality. 2. Moderate to marked atherosclerotic disease. Electronically authenticated by: HERNANDEZ ALCARAZ Date: 02/29/2024 09:24
== END 2024-02-28 13:02 | disposition home or self-care (01) ==
PROVIDERS: PCP Nurse Practitioner Family; Visit Provider Nurse Practitioner Family
DX: M81.0 Age-related osteoporosis without current pathological fracture (principal); M89.8X5 Other specified disorders of bone, thigh; M16.11 Unilateral primary osteoarthritis, right hip; M17.11 Unilateral primary osteoarthritis, right knee
CPT/HCPCS: 36415; 73702; 82565; Q9967

== ENCOUNTER 2024-03-01 12:49 | Outpatient (OUT) | payer OTHER, SELFPAY ==
--- NOTE | 2024-03-01 12:52 | CT_ITS ---
[address] [address] Patient Name: COTY GARCIA MRN: [id number] date: 1940 Sex: M Assigned Patient Location: CT Current Patient Location: CT Accession/Order Number: [id number] Exam Date: 03/01/2024 13:00 Report Date: 03/02/2024 15:28 At the request of: ANYI Mckinney APLING Procedure: CT femur LT wo/w con EXAM: CT femur LT wo/w con HISTORY: Age Related Osteoporosis , Pain Of Left Femur COMPARISON: 12/01/2021. TECHNIQUE: CT of the femur with and without contrast. Sequences obtained by standard department protocol. FINDINGS: Normal alignment of the left hip joint. Mild degeneration of the left hip joint. No acute fracture. Mild degeneration at the patellofemoral compartment. No popliteal cyst. No inguinal adenopathy. Atherosclerotic calcification of the left femoral and popliteal artery. No right knee joint effusion. Visualized organs of the pelvis are unremarkable. No abnormal enhancement. CT/CT femur LT wo/w con IMPRESSION: 1. No acute fracture or dislocation. 2. Mild degeneration of the left hip joint. 3. Normal alignment of the left knee joint. No left knee joint effusion. Electronically authenticated by: KRISTY CRUZ Date: 03/02/2024 15:28
--- OUTSIDE RECORDS SUMMARY | 2024-03-01 12:58 | XMS_ITS | CCD ---
Author Organization [facility] Care Team Providers Care Chemical Sales Representative Name Role Phone Collette Morales Unavailable Charlee Shields Unavailable REQUEST, DR TROTTER LISTED Admitting Unavaila ble REQUEST, DR TROTTER LISTED Attending Unavaila ble REQUEST, DR TROTTER LISTED Primary Care Unavaila ble APLINGANYI Admitting Unavailable APLING, ANYI Mckinney Attending Unavailable REQUEST, DR TROTTER LISTED Primary Care Unavaila ble APLANYI NAVARRETE Consulting Unavailable OLEXA, COLLETTE Admitting Unavailable OLEXA, COLLETTE Attending Unavailable REQUEST, DR TROTTER LISTED Primary Care Unavaila ble WEST, DR DEBBI Lynn Consulting Unavailable OLEXA, COLLETTE Consulting Unavailable REQUEST, DR TROTTER LISTED Primary Care Unavaila ble TIPERICK Admitting Unavailable TIP, ERICK Attending Unavailable WEST, DR DEBBI Lynn Consulting Unavailable TIPERICK Consulting Unavailable Unavailable Primary Care Provider Margot Harrison Attending Provider MALINA Christie Attending Provider Charlee Christie Attending Unavailable Charlee Christie Admitting Unavailable APLANYI NAVARRETE Attending Unavailable APLINGANYI Attending Unavailable APLINGANYI Referring Unavailable Allergies Allergy Classification Reported Allergen(s) Allergy Type Date of Onset Reaction(s) Facility (1 source) ceFAZolin Drug Allergy 11-25-2022 Other [facility] Work Phone: (1 source) Sulfonamides (Antibiotic) Drug Allergy 02-04-2017 [facility] Medications Current Medications Medication Drug Class(es) Dates Sig (Normalized) Sig (Original) ascorbic acid 500 mg oral tablet (3 sources) Vitamin C Start: 12-27-2023 take 250 mg [...] day Active atorvastatin 80 mg oral tablet (6 sources) HMG-CoA Reductase Inhibitor Start: 12-09-2023 take [...] 0 Active carvedilol 12.5 mg oral tablet (6 sources) alpha-Adrenergic Rashel, beta-Adrenergic Rashel Start: 12-09-2023 [...] 1 ml denosumab 60 mg/ml prefilled syringe (3 sources) RANK Ligand Inhibitor Start: Denosumab (Prolia) 60 mg/mL syringe Active 60 MG SUBCUT EVERY 6 MONTHS December 28, 2023 12:00am diclofenac sodium 0.01 mg/mg topical gel (1 source) Nonsteroidal Anti-inflammatory Drug diclofenac sodium (Voltaren) 1 % gel Apply 4 g topically in the morning and 4 g in the evening and 4 g before bedtime. 0 Active empagliflozin 10 mg oral tablet (4 sources) Sodium-Glucose Cotransporter 2 Inhibitor Start: take 1 tablet by mouth once daily Empagliflozin (Jardiance) 10 mg tablet Active 10 MG PO Daily December 09, 2023 12:00am empagliflozin (J ardiance) 10 MG Take by mouth. 0 Active ferrous sulfate 325 mg delayed release oral tablet (4 sources) Start: 12-27-2023 take 325 mg by [...] Active losartan potassium 50 mg oral tablet (6 sources) Angiotensin 2 Receptor Rashel Start: 4 [...] 03/28/2023 Active nitroglycerin 0.4 mg sublingual powder (4 sources) Nitrate Vasodilator Start: 12-09-2023 Nitroglycerin Active 0.4 MG SUBLINGUAL Q5M December 09, 2023 12:00am nitroglycerin (N itrostat) 0.[address] 0.4 mg under the tongue every 5 (five) minutes if needed for chest pain. 0 Active pantoprazole 40 mg extended release oral tablet (6 sources) Proton Pump Inhibitor Start: 12-09-2023 take [...] day Active predniSONE 10 mg oral tablet (4 sources) Start: 12-28-2023 take 10 mg by [...] bromide 180 mg extended release oral tablet (7 sources) Start: 12-27-2023 take 180 mg by mouth twice daily Pyridostigmine Dahinda Active 180 MG PO Twice daily December 27, 2023 7:50am Start: 12-09-2023 End: 12-27-2023 Pyridostigmine Dahinda Disco ntinued MG PO December 09, 2023 12:00am December 27, 2023 7:50am take 1 tablet by ramírez th in the morning pyridostigmine (Mestinon) 180 MG ER tablet Take 180 mg by mouth in the morning and 180 mg before bedtime. 0 Active 12 hr ranolazine 500 mg extended release oral tablet (4 sources) Anti-anginal Start: 12-09-2023 take 500 mg by mouth twice daily Ranolazine Active 500 MG PO Twice daily December 09, 2023 12:00am take 1 tablet by ramírez th every twelve hours in the morning ranolazine (Ranexa) 500 MG 12 hr tablet Take 500 mg by mouth in the morning and 500 mg before bedtime. 0 Active Ravulizumab-Cwvz (3 sources) Start: 12-09-2023 Ravulizumab-Cwvz (Ultomiris) 100 mg/mL solution Active MG IV December 09, 2023 12:00am obdulia Álvarez, 100 UNIT/ML pen (1 source) Start: 12-15-2022 obdulia Álvarez, 100 UNIT/ML pen sulfamethoxazole 400 mg / trimethoprim 80 mg oral tablet (3 sources) Dihydrofolate Reductase Inhibitor Antibacterial, Sulfonamide Antimicrobial Start: 12-28-2023 take 1 tablet by mouth twice daily Sulfamethoxazole-Tri methoprim Active 1 TAB PO Twice daily December 28, 2023 12:00am tamsulosin hydrochloride 0.4 mg oral capsule (4 sources) alpha-Adrenergic Rashel Start: 12-09-2023 take 0.4 mg by mouth once daily Tamsulosin Active 0.4 MG PO Daily December 09, 2023 12:00am take 1 capsule by mo ut every twenty-four hours in the morning tamsulosin (Flomax) 0.4 MG 24 hr capsule Take 0.4 mg by mouth in the morning. 0 Active terbinafine hydrochloride 10 mg/ml topical cream (3 sources) Allylamine Antifungal Start: 12-28-2023 Terbinafine Hcl (Lamisil At) 1 % cream Active 1 APPLIC TOPICAL Twice daily 15 7 December 28, 2023 12:00am ticagrelor 90 mg oral tablet (4 sources) Start: 12-09-2023 take 1 tablet by [...] Chronic Coronary atherosclerosis and other heart disease (9 sources) Coronary atherosclerosis; Translations: [Atherosclerotic heart disease of [place] coronary artery without angina pectoris] Onset: 12-18-2014 01-24-2023 Chronic Diabetes mellitus with complications (5 sources) Hypertensive disorder; Translations: [Type 2 diabetes mellitus with other circulatory complications] Onset: 03-06-2015 01-24-2023 Chronic Diabetes mellitus without complication (6 sources) Type 2 diabetes mellitus; Translations: [Type 2 diabetes mellitus without complications] 12-28-2023 Chronic Disorders of lipid metabolism (9 sources) Dyslipidemia; Translations: [Hyperlipidemia, unspecified] Onset: 08-11-2015 01-24-2023 Chronic Essential hypertension (3 sources) Essential (primary) hypertension; Translations: [Unspecified essential hypertension] 12-28-2023 Chronic Mycoses (10 sources) Dermatophytosis; Translations: [Dermatophytosis, unspecified] 12-28-2023 Episodic Osteoporosis (6 sources) Age-related osteoporosis without current pathological fracture; Translations: [Senile osteoporosis] Onset: 06-09-2022 Chronic Other nervous system disorders (4 sources) Myasthenia gravis; Translations: [Myasthenia gravis without (acute) exacerbation] Onset: 09-01-2021 11-25-2022 Chronic Other nervous system disorders (3 sources) Myasthenia gravis without (acute) exacerbation; Translations: [Myasthenia [...] Onset: 01-24-2023 01-24-2023 Chronic Urinary tract infections (8 sources) Urinary tract infectious disease; Translations: [Urinary tract infection, site not specified] Onset: 01-04-2024 12-28-2023 Episodic Past or Other Problems Problem [...] 04-15-2021 01-24-2023 Episodic Other aftercare (1 source) [facility] (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; Translations: [FIXTURE REPAIRER FABRICATOR CURRENT USE OF ASPIRIN] Onset: 12-07-2021 Episodic Other aftercare (1 source) Other medical terminologist (current) drug therapy; Translations: [OTH FIXTURE REPAIRER FABRICATOR CURRENT DRUG THERAPY] Onset: 12-07-2021 Episodic Other aftercare (1 source) [facility] (current) use of insulin; Translations: [FIXTURE REPAIRER FABRICATOR CURRENT USE OF INSULIN] Onset: 12-07-2021 Episodic Other aftercare (1 source) Long-term current use of anticoagulant; Translations: [[facility] (current) use of anticoagulants] Onset: 01-24-2023 01-24-2023 [...] Name Value Interpretation Reference Range Facil ity Urine Cultureon 01-04-2024 Bacteria identified Cx Nom (U) 15,000 colonies/ml mixed bacterial skin contaminants 2 Days PERFORMED BY: [place] [id number] PATHOLOGIST AIRPLANE PILOT PHOTOGRAMMETRY DEVIKA LORENZANA M.D. Normal [facility] Comment on above: Performed By: #### C UU #### [address] Hemoglobin [Mass/volume] in Bloodon 01-02-2024 Hemoglobin (Bld) [Mass/Vol] 11.9 g/dL Low 14.0-18.0 [facility] - Chemistry and C hemistry - challengeon 01-02-2024 Iron [Mass/Vol] 72.0 ug/dL 65.0-175.0 [facility] Calcium [Mass/Vol] 9.4 mg/dL 8.5-10.1 [facility] CALCIUMon 06-09-2022 Calcium [Mass/Vol] 10.2 mg/dL Critically high 8.5-10.1 Mario Alberto [facility] Comment on above: Performed By: #### C A #### [facility] [address] [place] [address] Dr. Hayder Howell CBC AUTO DIFFon 12-01-2021 BASO # 0.0 103/ul Normal 0.0-0.1 [facility] Comment on above: Performed By: #### C BC #### [facility] [address] [place] [address] Dr. Hayder Howell Basophils/100 WBC (Bld) 0.3 % Normal 0.2-2.0 [facility] Comment on above: Performed By: #### C BC #### [facility] [address] [place] [address] Dr. Hayder Howell EO # 0.0 103/ul Normal 0.0-0.7 [facility] Comment on above: Performed By: #### C BC #### [facility] [address] [place] [address] Dr. Hayder Howell Eosinophils/100 WBC (Bld) 0.3 % Critically low 0.9-7.0 [facility] Comment on above: Performed By: #### C BC #### [facility] [address] [place] [address] Dr. Hayder Howell Erythrocyte distribution width (RBC) [Ratio] 19.5 % Critically high 11.0-15.[address] [facility] Comment on above: Performed By: #### C BC #### [facility] [address] [place] [address] Dr. Hayder Howell Hematocrit (Bld) [Volume fraction] 30.3 % Critically low 42.0-54.0 [facility] Comment on above: Performed By: #### C BC #### [facility] [address] [place] [address] Dr. Hayder Hwoell Hemoglobin (Bld) [Mass/Vol] 9.0 g/dL Critically low 14.0-18.[address] [facility] Comment on above: Performed By: #### C BC #### [facility] [address] [place] [address] Dr. Hayder Howell IG # 0.02 10e3/ul Normal 0.00-0.03 [facility] Comment on above: Performed By: #### C BC #### [facility] [address] [place] [address] Dr. Hayder Howell IG % 0.3 % Normal 0.0-0.5 [facility] Comment on above: Performed By: #### C BC #### [facility] [address] [place] [address] Dr. Hayder Howell LYMPH # 1.2 103/ul Normal 1.2-3.[address] [facility] Comment on above: Performed By: #### C BC #### [facility] [address] [place] [address] Dr. Hayder Howell Lymphocytes/100 WBC (Bld) 15.9 % Critically low 20.5-60.0 [facility] Comment on above: Performed By: #### C BC #### [facility] [address] [place] [address] Dr. Hayder Howell MANUAL DIFF REQ NO Normal [facility] Comment on above: Performed By: #### C BC #### [facility] [address] [place] [address] Dr. Hayder Howell MCH (RBC) [Entitic mass] 25.5 pg Critically low 25.9-34.[address] [facility] Comment on above: Performed By: #### C BC #### [facility] [address] [place] [address] Dr. Hayder Howell MCHC (RBC) [Mass/Vol] 29.7 g/dL Critically low 29.9-35.[address] [facility] Comment on above: Performed By: #### C BC #### [facility] [address] [place] [address] Dr. Hayder Howell MCV (RBC) [Entitic vol] 85.8 fL Normal 80.0-94.0 [facility] Comment on above: Performed By: #### C BC #### [facility] [address] [address] [address] Hayder Howell MONO # 0.9 103/ul Critically high 0.3-0.8 [facility] Comment on above: Performed By: #### C BC #### [facility] [address] [address] [address] Hayder Howell Monocytes/100 WBC (Bld) 11.9 % Normal 1.7-12.0 [facility] Comment on above: Performed By: #### C BC #### [facility] [address] [place] [address] Dr. Hayder Howell NEUT # 5.3 103/ul Normal 1.4-6.5 [facility] Comment on above: Performed By: #### C BC #### [facility] [address] [place] [address] Dr. Hayder Howell Neutrophils/100 WBC (Bld) 71.3 % Normal 43.0-75.[address] [facility] Comment on above: Performed By: #### C BC #### [facility] [address] [place] [address] Dr. Hayder Howell Platelet mean volume (Bld) [Entitic vol] 8.8 fL Critically low 9.5-13.[address] [facility] Comment on above: Performed By: #### C BC #### [facility] [address] [place] [address] Dr. Hayder Howell PLT 225 103/ul Normal 150-[address] [facility] Comment on above: Performed By: #### C BC #### [facility] [address] [place] [address] Dr. Hayder Howell RBC 3.53 106/ul Critically low 4.70-6.10 [facility] Comment on above: Performed By: #### C BC #### [facility] [address] [place] [address] Dr. Hayder Howell WBC 7.4 103/ul Normal 4.0-11.0 [facility] Comment on above: Performed By: #### C BC #### [facility] [address] [address] [address] Hayder BARAHONA URINE PROFILEon 2 Bilirubin Ql (U) Negative Normal NEGATIVE [facility] Comment on above: Performed By: #### U MICRO, ERUR #### [facility] [address] [place] [address] Dr. Hayder Howell Clarity (U) CLEAR Normal CLEAR [facility] Comment on above: Performed By: #### U MICRO, ERUR #### [facility] [address] [place] [address] Dr. Hayder Howell Color (U) YELLOW Normal YELLOW [facility] Comment on above: Performed By: #### U MICRO, ERUR #### [facility] [address] [place] [address] Dr. Hayder FLOWERSD A micrscopic examination will be performed if indicated. Normal [facility] Comment on above: Performed By: #### U MICRO, ERUR #### [facility] [address] [place] [address] Dr. Hayder Howell Glucose Ql (U) Negative Normal NEGATIVE [facility] Comment on above: Performed By: #### U MICRO, ERUR #### [facility] [address] [place] [address] Dr. Hayder Howell Hemoglobin Ql (U) Negative Normal NEGATIVE [facility] Comment on above: Performed By: #### U MICRO, ERUR #### [facility] [address] [place] [address] Dr. Hayder Howell Ketones Ql (U) Negative Normal NEGATIVE [facility] Comment on above: Performed By: #### U MICRO, ERUR #### [facility] [address] [place] [address] Dr. Hayder Howell LEUKOCYTES TRACE Abnormal NEGATIVE [facility] Comment on above: Performed By: #### U MICRO, ERUR #### [facility] [address] [place] [address] Dr. Hayder Howell Nitrite Ql (U) Negative Normal NEGATIVE [facility] Comment on above: Performed By: #### U MICRO, ERUR #### [facility] [address] [place] [address] Dr. Hayder Howell pH (U) 5.0 [pH] Normal 5-9 [facility] Comment on above: Performed By: #### U MICRO, ERUR #### [facility] [address] [place] [address] Dr. Hayder Howell SPEC GRAVITY 1.025 Normal 1.005-<=1.025 [facility] Comment on above: Performed By: #### U MICRO, ERUR #### [facility] [address] [place] [address] Dr. Hayder Howell UA PROTEIN Negative Normal NEGATIVE/ TRACE [facility] Comment on above: Performed By: #### U MICRO, ERUR #### [facility] [address] [place] [address] Dr. Hayder Howell UR MICRO IND INDICATED Normal [facility] Comment on above: Performed By: #### U MICRO, ERUR #### [facility] [address] [place] [address] Dr. Hayder Howell Urobilinogen Qn (U) 0.2 {[place]'U}/dL Normal 0.2 - 1.0 [facility] Comment on above: Performed By: #### U MICRO, ERUR #### [facility] [address] [place] [address] Dr. Hayder Howell PROF 14(COMP METB)on 022 Albumin [Mass/Vol] 3.0 g/dL Critically low 3.4-5.0 [facility] Comment on above: Performed By: #### C MP #### [facility] [address] [place] [address] Dr. Hayder Howell Albumin/Globulin [Mass ratio] 1.0 {ratio} Normal [facility] Comment on above: Performed By: #### C MP #### [facility] [address] [place] [address] Dr. Hayder Howell ALP [Catalytic activity/Vol] 61 U/L Normal 46-116 [facility] Comment on above: Performed By: #### C MP #### [facility] [address] [address] [address] Hayder Howell ALT [Catalytic activity/Vol] 41 U/L Normal 16-63 [facility] Comment on above: Performed By: #### C MP #### [facility] [address] [address] [address] Hayder Howell Anion gap [Moles/Vol] 9.4 mmol/L Normal [facility] Comment on above: Performed By: #### C MP #### [facility] [address] [address] [address] Hayder Howell AST [Catalytic activity/Vol] 20 U/L Normal 15-37 [facility] Comment on above: Performed By: #### C MP #### [facility] [address] [place] [address] Dr. Hayder Howell Bilirubin [Mass/Vol] 1.0 mg/dL Normal 0.2-1.0 [facility] Comment on above: Performed By: #### C MP #### [facility] [address] [address] [address] Hayder Howell Calcium [Mass/Vol] 9.6 mg/dL Normal 8.5-10.1 [facility] Comment on above: Performed By: #### C MP #### [facility] [address] [address] [address] Hayder Howell Chloride [Moles/Vol] 106 mmol/L Normal 98-[address] [facility] Comment on above: Performed By: #### C MP #### [facility] [address] [address] [address] Hayder Howell CO2 [Moles/Vol] 27.3 mmol/L Normal 21.0-32.0 [facility] Comment on above: Performed By: #### C MP #### [facility] [address] [address] [address] Hayder Howell Creatinine [Mass/Vol] 0.71 mg/dL Normal 0.70-1.30 [facility] Comment on above: Performed By: #### C MP #### [facility] [address] [address] [address] Hayder Howell EGFR-AF [place] >60 Normal >=60 [facility] Comment on above: Performed By: #### C MP #### [facility] [address] [address] [address] Hayder Howell EGFR-NON AF [place] >60 Normal >=60 [facility] Comment on above: Performed By: #### C MP #### [facility] [address] [address] [address] Hayder Howell Globulin (S) [Mass/Vol] 3.1 g/dL Normal [facility] Comment on above: Performed By: #### C MP #### [facility] [address] [address] [address] Hayder Howell Glucose [Mass/Vol] 172 mg/dL Critically high 74-106 [facility] Comment on above: Performed By: #### C MP #### [facility] [address] [address] [address] Hayder Howell Potassium [Moles/Vol] 3.7 mmol/L Normal 3.5-5.1 [facility] Comment on above: Performed By: #### C MP #### [facility] [address] [address] [address] Hayder Howell Protein [Mass/Vol] 6.1 g/dL Critically low 6.4-8.2 [facility] Comment on above: Performed By: #### C MP #### [facility] [address] [address] [address] Hayder Howell Sodium [Moles/Vol] 139 mmol/L Normal 136-145 [facility] Comment on above: Performed By: #### C MP #### [facility] [address] [address] [address] Hayder Howell Urea nitrogen [Mass/Vol] 13.0 mg/dL Normal 7.0-18.0 [facility] Comment on above: Performed By: #### C MP #### [facility] [address] [address] [address] Hayder Howell Urea nitrogen/Creatinin e [Mass ratio] 18.3 mg/mg Normal [facility] Comment on above: Performed By: #### C MP #### [facility] [address] [place] [address] Dr. Hayder Howell URINE MICROSCOPIC ONLYon BACTERIA NONE SEEN Normal NONE SEEN [facility] Comment on above: Performed By: #### U MICRO, ERUR #### [facility] [address] [place] [address] Dr. Hayder Howell Bacteria identified Cx Nom (U) NOT INDICATED Normal [facility] Comment on above: Performed By: #### U MICRO, ERUR #### [facility] [address] [place] [address] Dr. Hayder Howell CAST NONE SEEN Normal NONE SEEN [facility] Comment on above: Performed By: #### U MICRO, ERUR #### [facility] [address] [place] [address] Dr. Hayder Howell Crystals LM Nom (Urine sed) NONE SEEN Normal NONE SEEN [facility] Comment on above: Performed By: #### U MICRO, ERUR #### [facility] [address] [place] [address] Dr. Hayder Howell Epithelial cells LM Ql (Urine sed) RARE Normal NONE SEEN /RARE [facility] Comment on above: Performed By: #### U MICRO, ERUR #### [facility] [address] [place] [address] Dr. Hayder Howell MUCOUS NONE SEEN Normal NONE SEEN [facility] Comment on above: Performed By: #### U MICRO, ERUR #### [facility] [address] [place] [address] Dr. Hayder Howell RBC 0-2 Normal 0-[address] [facility] Comment on above: Performed By: #### U MICRO, ERUR #### [facility] [address] [place] [address] Dr. Hayder Howell WBC 0-2 Abnormal NONE SEEN [facility] Comment on above: Performed By: #### U MICRO, ERUR #### [facility] [address] [address] [address] Hayder Howell XR RIBS BIL_PA CH [...] DEBBI GUPTA Date: 2021-12-01 09:[address] [facility] Vital Signs Date Time Vital Sign Value Performing Clinician Faci lity 12-28-2023 10:040 Body height 177.8 cm M.D. Percy Mercer Work Phone: [facility] 12-28-2023 10:040 Body mass index (BMI) [Ratio] 29.5 kg/m2 M.D. Percy Mercer Work Phone: [facility] 12-28-2023 10:26040 Body weight 93.44 kg M.D. Percy Mercer Work Phone: [facility] 12-28-2023 10:26-040 Diastolic blood pressure 64 mm[Hg] M.D. Percy Mercer Work Phone: [facility] 12-28-2023 10:040 Heart rate 61 /min M.D. Percy Mercer Work Phone: [facility] 12-28-2023 10:26-0400 SaO2% (BldA) [Mass fraction] 99 % M.D. Percy Mercer Work Phone: [facility] 12-28-2023 10:26-0400 Systolic blood pressure 102 mm[Hg] Margot Mercer Work Phone: [facility] Encounters Encounter Date Encounter Type Care Provider Facility Start: 02-08-2024 End: 02-08-2024 ambulatory ANYI Faye APLING Not Available Start: 01-04-2024 End: 01-04-2024 Departed Referred Margot Mercer Work Phone: [facility] [place] Work Phone: Start: 01-04-2024 End: 01-04-2024 ambulatory Charlee Shahnaz [facility] Work Phone: Start: 01-04-2024 End: 01-04-2024 Patient encounter procedure Margot Mercer Work Phone: [facility] Work Phone: Start: 01-02-2024 Non-patient / Non-visit Margot Mercer Work Phone: [facility] Work Phone: Start: 12-28-2023 End: 12-28-2023 ambulatory Margot Mercer Work Phone: [facility] Work Phone: Start: 12-28-2023 End: 12-28-2023 Patient encounter procedure Margot Mercer Work Phone: [facility] Work Phone: Start: 08-08-2023 End: 08-08-2023 ambulatory ANYI Mckinney APLING Not Available Start: 08-01-2023 Telephone encounter Anyi calvin ASSOCIATE THEATRE PROFESSOR Work Phone: [facility] Comment on above: Lab Orders Start: 01-24-2023 Patient encounter status Anyi Garcia ASSOCIATE THEATRE PROFESSOR Work Phone: [facility] Start: 06-09-2022 End: 06-10-2022 ambulatory ANYI GARCIA Facility:[facility]1 Start: 01-06-2022 End: 01-07-2022 ambulatory NONE LISTED REQUEST Facility:[facility]1 Start: 01-01-2022 End: 01-01-2022 ambulatory Charlee Shields Other [facility] Other Start: 01-01-2022 Telephone encounter Charlee Shields [facility] Start: 12-29-2021 End: 12-29-2021 ambulatory Collette Zhaoxa Other [facility] Other Start: 12-29-2021 Postop follow up vis it related to original px Collette Zhaoxa [facility] Start: 12-08-2021 End: 12-09-2021 ambulatory COLLETTE OLEXA [facility] Other Start: 12-08-2021 [facility] visit new patient Collette Morales [facility] [place] Start: 12-01-2021 End: 12-01-2021 ambulatory NONE LISTED REQUEST Facility: Start: 03-23-1988 Evaluation and management of inpatient Margot Greer Sylvie Work Phone: [facility] Plan of Treatment Date Care Activity Detail Author Start: 01-04-2024 Bacteria identified in Urine by Culture [facility] Start: 10-17-2023 End: 10-17-2023 Patient encounter procedure 10/17/2023 1:00 PM EDT Office Visit [facility] [address] [facility] [address] [place] [address] Errol Nickerson MD [address] [facility] [address] [place] [address] [place] [id number] [facility] Start: 08-08-2023 End: 08-08-2023 Patient encounter procedure 08/08/2023 11:00 AM EST Office Visit [facility] [address] [facility] [address] [place] [address] Anyi Garcia, ASSOCIATE THEATRE PROFESSOR [address] [facility] [address] [place] [address] [facility] Start: 08-01-2023 End: 08-01-2024 Calcium [Mass/volume] in Serum or Plasma Calcium Lab Routine Age-related osteoporosis without current pathological fracture ([facility]/HCC) Expected: 08/01/2023 (Approximate), Expires: 08/01/2024 [facility] Work Phone: Comment on above: Expected: 08/01/2023 (Approximate), Expires: 08/01/2024 Start: 03-04-2023 Influenza vaccination Influenza Vacc ine (#1) [facility] Immunizations Immunization Date Immunization Notes Care Provider Fa cility 04-10-2021 influenza virus vacc ine, unspecified formulation Anyi Garcia NP Work Phone: [facility] 12-08-2020 pneumococcal polysaccharide vaccine, 23 valent Anyi Garcia NP Work Phone: [facility] 08-05-2020 influenza, injectabl e, quadrivalent, preservative free Anyi Garcia NP Work Phone: [facility] Payers Date Payer Category Payer Managed Care O (unspecified) [employer] [id number] 2001-Present [address] [place] [address] O [id number] 1959 Private Health Insurance [id number] 1959 Self-pay 1940 Unknown [id number] 1940 Unknown [id number] 1942 Unknown [id number] 1942 Unknown [id number] .[id number] 1942 Unknown [id number] .1259 1942 Unknown [id number] .1259 1942 Unknown [id number] .1259 Unknown [id number] Unknown [id number] Social History Date Type Detail Facility Start: 03-28-2023 Sex Assigned At N [facility] [employer] Other Start: 01-12-2023 End: 12-28-2023 Tobacco smoking status [facility] Ex-smoker [facility] End: 07-04-1972 History of tobacco use Current smoker [facility] End: 07-04-1972 History of tobacco use Cigarette Smoker [facility] Start: 01-12-2023 Tobacco use and exposure Smokeless tobacco non-user [facility] Start: 07-22-2023 Alcohol intake Ex-drinker (finding) [facility] Start: 03-28-2023 History of Social function [facility] Start: 01-12-2023 Alcohol Comment stopped drinking 198 0s? [facility] Start: 1940 Sex Assigned At Male [place] [facility] Start: 03-28-2023 Gender identity Identifies as male gender (finding) [facility] Medical Equipment Procedure Code Equipment Code Equipment Origin al Text Equipment Identifier Dates BD Pen Needle Na no U/F 32G X 4 MM [facility] [id number] Start: 12-15-2022 Clinical Notes 12-01-2021 to 08-05-2023 [...] order for him to take back to [facility] for his lab. [facility] 08-05-2023 Miscellaneous Notes Formattin g of this note might be different from the original. Patient just stopped in to [facility] and I printed the signed order for him to take back to [facility] for his lab. Patient called and stated he is at [facility] for calcium lab since he is to have a Prolia shot Tuesday, but [facility] doesn't have the order and he would like us to refax it. Patient's call back is [phone]. Please advise, thank you documented in this encounter [facility] 08-05-2023 Telephone encounter Note Form atting of this note might be different from the original. Patient called and stated he is at [facility] for calcium lab since he is to have a Prolia shot Tuesday, but [facility] doesn't have the order and he would like us to refax it. Patient's call back is [phone]. Please advise, thank you [facility] 12-29-2021 Evaluation note Encounter Date Diagnosis Assessment Notes Dec, Closed fracture of olecranon process of left ulna with routine healing, subsequent encounter (ICD-10 - S52.022D) Radiographs reviewed with patient today. Discussed with patient to continue to wear splint and use sling for protection when out of the home. Discussed with patient he can progress to range of motion exercises. [facility] Other 06-08-2022 NotePROCEDURE: XR ELBOW LT 2V [...] Electronically authenticated by: DEBBI GUPTA Date: 2021-12-09 07:01[facility]06-07-2022 Evaluation note* Encounter Date Diagnosis Assessment Notes [...] discussed that this injury can lead to senior living elbow pain and stiffness. Discussed with patient to call if he would like home health Since there is not significant displacement and he states he is very limited with normal activities in general I think that nonoperative treatment will be adequate. [facility] Other 05-31-2022 NotePROCEDURE: XR ELBOW LT 2V [...] Electronically authenticated by: DEBBI GUPTA Date: 2021-12-01 11:06[facility]05-31-2022 NotePROCEDURE: XR ELBOW LT MIN 3 VIEWS [...] Electronically authenticated by: DEBBI GUPTA Date: 2021-12-01 10:01[facility]05-31-2022 NotePROCEDURE: XR HIP LT 2 3V W [...] authenticated by: DEBBI GUPTA Date: 2021-12-01 09:[address] noteNo InformationNortDan[facility] 20:20 Mobile Other Evaluation note* Diagnosis Age-related osteoporosis without current pathological fracture (CMS/HCC)- Primary Age-related osteoporosis without current pathological fracture (CMS/HCC)- Primary documented in this encounter [facility]* Diagnosis Onset Date Resolution Status CAD (coronary artery disease) acute Hyperlipidemia acute Hypertension acute Myasthenia gravis acute Tinea acute Type 2 diabetes mellitus acu te UTI (urinary tract infection) acute [facility] Work Phone: Evaluation note* Diagnosis Onset Date Resolution Status CAD (coronary artery disease) acute Candidal intertrigo acute Hyperlipidemia acute Hypertension acute Myasthenia gravis acute Tinea acute Type 2 diabetes mellitus acu te UTI (urinary tract infection) acute [facility] Work Phone: Evaluation note* Diagnosis Onset Date Resolution Status CAD (coronary artery disease) acute Candidal intertrigo acute Hyperlipidemia acute Hypertension acute Myasthenia gravis acute Tinea acute Type 2 diabetes mellitus acu te UTI (urinary tract infection) acute UTI (urinary tract infection) [facility] Work Phone: History general Narrative - Reported* Type Description Date Medical History hypertension Medical History hyperlipidemia [employer] Other Summary Purpose Family History No Family History Records Found Relationship Condition Age at Onset Recorded Date/T my father Unknown mother Unknown Advance Directives No Advanced Directives Records Found Advance Directive Response Recorded Date/ Time Advance Directives No Marilyn 28th, 20 22 1:30pm Chief Complaint and Reason for Visit Chief Complaint est care, [facility] follow up e-coli Reason for Visit CAD (coronary artery disease) Hyperlipidemia Hypertension Myasthenia gravis Tinea Type 2 diabetes mellitus UTI (urinary tract infection) Chief Complaint est care, [facility] follow up e-coli UA Reason for Visit CAD (coronary artery disease) Candidal intertrigo Hyperlipidemia Hypertension Myasthenia gravis Tinea Type 2 diabetes mellitus UTI (urinary tract infection) Chief Complaint est care, [facility] follow up e-coli UA Reason for Visit CAD (coronary artery disease) Candidal intertrigo Hyperlipidemia Hypertension Myasthenia gravis Tinea Type 2 diabetes mellitus UTI (urinary tract infection) UTI (urinary tract infection) Additional Source Comments REASON FOR VISIT (unrecogniz ed section and content) Reason Onset Date Comments Lab Orders 08/01/2023 (unrecognized sect ion and content) No Status Records FoundNo Status Records FoundNo Status Records Found INFORMATION SOURCE (unrecogn ized section and content) DATE CREATED AUTHOR 06/12/2022 [facility] DATE CREATED AUTHOR AUTHOR'S ORGANIZ ATION 01/19/2024 [facility] DATE CREATED AUTHOR AUTHOR'S ORGANIZ ATION 02/13/2024 [facility] EPIC Care Teams (unrecognized sec tion and content) Team Status: Active Member Role Status Dates MALINA Hammer Primary Care Provider Active Team Status: Active Member Role Status Dates Percy Mercer M.D. Attending Provider Active Start: March 23, 1988 Team Status: Inactive Member Role Status Dates MALINA Hammer Primary Care Provider, Attending Provider Active Start: December 28, 2023 End: December 28, 2023 Team Status: Active Member Role Status Dates MALINA Hammer Primary Care Provider Active Start: January 02, 2024 Anyi Garcia NP Attending Provider Active Star t: January 02, 2024 Team Status: Inactive Member Role Status Dates MALINA Hammer Primary Care Provider, Attending Provider Active Start: January 04, 2024 End: January 04, 2024 Team Status: Inactive Member Role Status Dates MALINA Hammer Attending Provider Act anuj Start: January 04, 2024 End: January 04, 2024 Goals (unrecognized section and content) Goals may [...] BE BASED ON THE PRIMARY CLINICAL RECORDS. [facility]. provides no warranty or guarantee of the accuracy or completeness of information in this document.
== END 2024-03-01 12:50 | disposition home or self-care (01) ==
LOC: CT 12:49
PROVIDERS: PCP Nurse Practitioner Family; Visit Provider Nurse Practitioner Family
DX: M81.0 Age-related osteoporosis without current pathological fracture (principal); M89.8X5 Other specified disorders of bone, thigh
CPT/HCPCS: 73702; Q9967

== ENCOUNTER 2024-03-03 09:23 | Outpatient (OUT) | payer OTHER, SELFPAY ==
--- NOTE | 2024-03-03 | CT_ITS ---
[address] [address] Patient Name: COTY GARCIA MRN: [id number] date: 1940 Sex: M Assigned Patient Location: CT Current Patient Location: CT Accession/Order Number: [id number] Exam Date: 03/03/2024 09:25 Report Date: 03/06/2024 08:35 At the request of: ANYI Mckinney APLING Procedure: CT facial bones wo/w con EXAMINATION: CT facial bones wo/w con HISTORY: NECROSIS OF THE JAW ; right side jaw pain COMPARISON: No relevant comparison available. TECHNIQUE: Axial, Coronal, and Sagittal CT images created without and with IV contrast. Dose reduction techniques were achieved by using automated exposure control and/or adjustment of mA and/or kV according to patient size and/or use of iterative reconstruction technique. FINDINGS: FACIAL BONES: No bony lesion or fracture. SINUSES: No visible mass, significant fluid or mucosal thickening. NASAL FOSSA: No mass, fracture, or significant septal deviation. SKULL BASE: No mass or bone destruction. ORBITS: No visible mass, hematoma, edema or fracture. SALIVARY GLANDS: No mass. Unremarkable parotid and submandibular glands. OTHER: Mild atherosclerotic disease. CT/CT facial bones wo/w con IMPRESSION: 1. No appreciable lytic lesion or destructive process of the mandible. Electronically authenticated by: HERNANDEZ ALCARAZ Date: 03/06/2024 08:35
--- OUTSIDE RECORDS SUMMARY | 2024-03-03 09:25 | XMS_ITS | CCD ---
Author Organization [facility] Care Team Providers Care Dump Worker Name Role Phone Collette Morales Unavailable Charlee [...] Harrison Attending Provider MALINA Christie Attending Provider [phone] Charlee Christie Attending Unavailable Charlee Christie Admitting Unavailable APLANYI NAVARRETE Attending Unavailable APLINGANYI Attending Unavailable APLINGANYI Referring Unavailable Allergies Allergy Classification Reported Allergen(s) Allergy Type Date of Onset Reaction(s) Facility (1 source) [facility] Drug Allergy 11-25-2022 Other [facility] Work Phone: (1 source) Sulfonamides [...] 180 mg by mouth twice daily Pyridostigmine Sunshine Active 180 MG PO Twice daily December 27, 2023 7:50am Start: 12-09-2023 End: 12-27-2023 Pyridostigmine Sunshine Disco ntinued MG PO December 09, 2023 [...] Coronary atherosclerosis; Translations: [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] Onset: 12-18-2014 [...] 04-15-2021 01-24-2023 Episodic Other aftercare (1 source) prison (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; Translations: [VICE PRESIDENT OF COMPLIANCE CURRENT USE OF ASPIRIN] Onset: 12-07-2021 Episodic Other aftercare (1 source) Other manager intermediate (current) drug therapy; Translations: [OTH VICE PRESIDENT OF COMPLIANCE CURRENT DRUG THERAPY] Onset: 12-07-2021 Episodic Other aftercare (1 source) prison (current) use of insulin; Translations: [VICE PRESIDENT OF COMPLIANCE CURRENT USE OF INSULIN] Onset: 12-07-2021 Episodic Other aftercare (1 source) Long-term current use of anticoagulant; Translations: [prison (current) use of anticoagulants] Onset: 01-24-2023 01-24-2023 [...] bacterial skin contaminants 2 Days PERFORMED BY: [place] [address] PATHOLOGIST GEOLOGY ASSOCIATE DEVIKA LORENZANA M.D. Normal [facility] Comment on above: Performed By: #### C UU #### [address] Hemoglobin [Mass/volume] in Bloodon 01-02-2024 Hemoglobin (Bld) [Mass/Vol] 11.9 g/dL Low 14.0-18.0 [facility] - Chemistry and C hemistry - challengeon 01-02-2024 Iron [Mass/Vol] 72.0 ug/dL 65.0-175.0 [facility] Calcium [Mass/Vol] 9.4 mg/dL 8.5-10.1 [facility] CALCIUMon 06-09-2022 Calcium [Mass/Vol] 10.2 mg/dL Critically high 8.5-10.1 [facility] Comment on above: Performed By: #### C A #### [facility] [address] [place] [address] Dr. Hayder Howell CBC AUTO DIFFon 12-01-2021 BASO # 0.0 103/ul Normal 0.0-0.1 [facility] Comment on above: Performed By: #### C BC #### [facility] [address] [place] [address] Dr. Hayder Howell Basophils/100 WBC (Bld) 0.3 % Normal 0.2-2.0 [facility] Comment on above: Performed By: #### C BC #### [facility] [address] [place] [address] Dr. Hayder Howell EO # 0.0 103/ul Normal 0.0-0.7 [facility] Comment on above: Performed By: #### C BC #### [facility] [address] [place] [address] Dr. Hayder Howell Eosinophils/100 WBC (Bld) 0.3 % Critically low 0.9-7.0 [facility] Comment on above: Performed By: #### C BC #### [facility] [address] [place] [address] Dr. Hayder Howell Erythrocyte distribution width (RBC) [Ratio] 19.5 % Critically high 11.0-15.0 [facility] Comment on above: Performed By: #### C BC #### [facility] [address] [place] [address] Dr. Hayder Howell Hematocrit (Bld) [Volume fraction] 30.3 % Critically low 42.0-54.0 [facility] Comment on above: Performed By: #### C BC #### [facility] [address] [place] [address] Dr. Hayder Howell Hemoglobin (Bld) [Mass/Vol] 9.0 g/dL Critically low 14.0-18.0 [facility] Comment on above: Performed By: #### C BC #### [facility] [address] [place] [address] Dr. Hayder Howell IG # 0.02 10e3/ul Normal 0.00-0.03 [facility] Comment on above: Performed By: #### C BC #### [facility] [address] [place] [address] Dr. Hayder Howell IG % 0.3 % Normal 0.0-0.5 [facility] Comment on above: Performed By: #### C BC #### [facility] [address] [place] [address] Dr. Hayder Howell LYMPH # 1.2 103/ul Normal 1.2-3.8 [facility] Comment on above: Performed By: #### C BC #### [facility] [address] [place] [address] Dr. Hayder Howell Lymphocytes/100 WBC (Bld) 15.9 % Critically low 20.5-60.0 [facility] Comment on above: Performed By: #### C BC #### [facility] [address] [place] [address] Dr. Hayder Howell MANUAL DIFF REQ NO Normal [facility] Comment on above: Performed By: #### C BC #### [facility] [address] [place] [address] Dr. Hayder Howell MCH (RBC) [Entitic mass] 25.5 pg Critically low 25.9-34.0 [facility] Comment on above: Performed By: #### C BC #### [facility] [address] [place] [address] Dr. Hayder Howell MCHC (RBC) [Mass/Vol] 29.7 g/dL Critically low 29.9-35.2 [facility] Comment on above: Performed By: #### C BC #### [facility] [address] [place] [address] Dr. Hayder Howell MCV (RBC) [Entitic vol] 85.8 fL Normal 80.0-94.0 [facility] Comment on above: Performed By: #### C BC #### [facility] [address] [address] [address] Hayder Howell MONO # 0.9 103/ul Critically high 0.3-0.8 [facility] Comment on above: Performed By: #### C BC #### [facility] [address] [address] [address] Hayder Howell Monocytes/100 WBC (Bld) 11.9 % Normal 1.7-12.0 [facility] Comment on above: Performed By: #### C BC #### [facility] [address] [place] [address] Dr. Hayder Howell NEUT # 5.3 103/ul Normal 1.4-6.5 [facility] Comment on above: Performed By: #### C BC #### [facility] [address] [place] [address] Dr. Hayder Howell Neutrophils/100 WBC (Bld) 71.3 % Normal 43.0-75.0 [facility] Comment on above: Performed By: #### C BC #### [facility] [address] [place] [address] Dr. Hayder Howell Platelet mean volume (Bld) [Entitic vol] 8.8 fL Critically low 9.5-13.5 [facility] Comment on above: Performed By: #### C BC #### [facility] [address] [place] [address] Dr. Hayder Howell PLT 225 103/ul Normal 150-450 [facility] Comment on above: Performed By: #### C BC #### [facility] [address] [place] [address] Dr. Hayder Howell RBC 3.53 106/ul Critically low 4.70-6.10 [facility] Comment on above: Performed By: #### C BC #### [facility] [address] [place] [address] Dr. Hayder Howell WBC 7.4 103/ul Normal 4.0-11.0 [facility] Comment on above: Performed By: #### C BC #### [facility] [address] [address] [address] Hayder BARAHONA URINE PROFILEon 2 Bilirubin Ql (U) Negative Normal NEGATIVE [facility] Comment on above: Performed By: #### U MICRO, ERUR #### [facility] [address] [place] [address] Dr. Hayder Howell Clarity (U) CLEAR Normal CLEAR [facility] Comment on above: Performed By: #### U MICRO, ERUR #### [facility] [address] [place] [address] Dr. Hayder Howell Color (U) YELLOW Normal YELLOW [facility] Comment on above: Performed By: #### U MICRO, ERUR #### [facility] [address] [place] [address] Dr. Hayder FLOWERSD A micrscopic examination will be performed if indicated. Normal [facility] Comment on above: Performed By: #### U MICRO, ERUR #### [facility] [address] [place] [address] Dr. Hayder Howell Glucose Ql (U) Negative Normal NEGATIVE The [facility] Comment on above: Performed By: #### U MICRO, ERUR #### [facility] [address] [place] [address] Dr. Hayder Howell Hemoglobin Ql (U) Negative Normal NEGATIVE The [facility] Comment on above: Performed By: #### U MICRO, ERUR #### [facility] [address] [place] [address] Dr. Hayder Howell Ketones Ql (U) Negative Normal NEGATIVE The [facility] Comment on above: Performed By: #### U MICRO, ERUR #### [facility] [address] [place] [address] Dr. Hayder Howell LEUKOCYTES TRACE Abnormal NEGATIVE [facility] Comment on above: Performed By: #### U MICRO, ERUR #### [facility] [address] [place] [address] Dr. Hayder Howell Nitrite Ql (U) Negative Normal NEGATIVE [facility] Comment on above: Performed By: #### U MICRO, ERUR #### [facility] [address] [place] [address] Dr. Hayder Howell pH (U) 5.0 [pH] Normal 5-9 [facility] Comment on above: Performed By: #### U MICRO, ERUR #### [facility] [address] [place] [address] Dr. Hayder Howell SPEC GRAVITY 1.025 Normal 1.005-<=1.025 [facility] Comment on above: Performed By: #### U MICRO, ERUR #### [facility] [address] [place] [address] Dr. Hayder Howell UA PROTEIN Negative Normal NEGATIVE/ TRACE [facility] Comment on above: Performed By: #### U MICRO, ERUR #### [facility] [address] [place] [address] Dr. Hayder Howell UR MICRO IND INDICATED Normal [facility] Comment on above: Performed By: #### U MICRO, ERUR #### [facility] [address] [place] [address] Dr. Hayder Howell Urobilinogen Qn (U) 0.2 {Nakita'U}/dL Normal 0.2 - 1.0 [facility] Comment on above: Performed By: #### U MICRO, ERUR #### [facility] [address] [place] [address] Dr. Hayder Howell PROF 14(COMP METB)on 022 Albumin [Mass/Vol] 3.0 g/dL Critically low 3.4-5.0 [facility] Comment on above: Performed By: #### C MP #### [facility] [address] [place] [address] Dr. Hayder Howell Albumin/Globulin [Mass ratio] 1.0 {ratio} Normal [facility] Comment on above: Performed By: #### C MP #### [facility] [address] [place] [address] Dr. Hayder Howell ALP [Catalytic activity/Vol] 61 U/L Normal 46-116 [facility] Comment on above: Performed By: #### C MP #### [facility] [address] [address] [address] Hayder Howell ALT [Catalytic activity/Vol] 41 U/L Normal 16-63 [facility] Comment on above: Performed By: #### C MP #### [facility] [address] [address] [address] Hayder Howell Anion gap [Moles/Vol] 9.4 mmol/L Normal [facility] Comment on above: Performed By: #### C MP #### [facility] [address] [address] [address] Hayder Howell AST [Catalytic activity/Vol] 20 U/L Normal 15-37 [facility] Comment on above: Performed By: #### C MP #### [facility] [address] [place] [address] Dr. Hayder Howell Bilirubin [Mass/Vol] 1.0 mg/dL Normal 0.2-1.0 [facility] Comment on above: Performed By: #### C MP #### [facility] [address] [address] [address] Hayder Howell Calcium [Mass/Vol] 9.6 mg/dL Normal 8.5-10.1 [facility] Comment on above: Performed By: #### C MP #### [facility] [address] [address] [address] Hayder Howell Chloride [Moles/Vol] 106 mmol/L Normal 98-107 [facility] Comment on above: Performed By: #### C MP #### [facility] [address] [address] [address] Hayder Howell CO2 [Moles/Vol] 27.3 mmol/L Normal 21.0-32.[address] [facility] Comment on above: Performed By: #### C MP #### [facility] [address] [address] [address] Hayder Howell Creatinine [Mass/Vol] 0.71 mg/dL Normal 0.70-1.30 [facility] Comment on above: Performed By: #### C MP #### [facility] [address] [address] [address] Hayder Howell EGFR-AF GIBRALTARIAN >60 Normal >=[address] [facility] Comment on above: Performed By: #### C MP #### [facility] [address] [address] [address] Hayder Howell EGFR-NON AF GIBRALTARIAN >60 Normal >=60 [facility] Comment on above: Performed By: #### C MP #### [facility] [address] [address] [address] Hayder Howell Globulin (S) [Mass/Vol] 3.1 g/dL Normal [facility] Comment on above: Performed By: #### C MP #### [facility] [address] [address] [address] Hayder Howell Glucose [Mass/Vol] 172 mg/dL Critically high 74-106 [facility] Comment on above: Performed By: #### C MP #### [facility] [address] [address] [address] Hayder Howell Potassium [Moles/Vol] 3.7 mmol/L Normal 3.5-5.1 [facility] Comment on above: Performed By: #### C MP #### [facility] [address] [address] [address] Hayder Howell Protein [Mass/Vol] 6.1 g/dL Critically low 6.4-8.2 [facility] Comment on above: Performed By: #### C MP #### [facility] [address] [address] [address] Hayder Howell Sodium [Moles/Vol] 139 mmol/L Normal 136-145 [facility] Comment on above: Performed By: #### C MP #### [facility] [address] [address] [address] Hayder Howell Urea nitrogen [Mass/Vol] 13.0 mg/dL Normal 7.0-18.0 [facility] Comment on above: Performed By: #### C MP #### [facility] [address] [address] [address] Hayder Howell Urea nitrogen/Creatinin e [Mass ratio] 18.3 mg/mg Normal [facility] Comment on above: Performed By: #### C MP #### [facility] [address] [place] [address] Dr. Hayder Howell URINE MICROSCOPIC ONLYon BACTERIA NONE SEEN Normal NONE SEEN [facility] Comment on above: Performed By: #### U MICRO, ERUR #### [facility] [address] [place] [address] Dr. Hayder Howell Bacteria identified Cx Nom (U) NOT INDICATED Normal [facility] Comment on above: Performed By: #### U MICRO, ERUR #### [facility] [address] [place] [address] Dr. Hayder Howell CAST NONE SEEN Normal NONE SEEN [facility] Comment on above: Performed By: #### U MICRO, ERUR #### [facility] [address] [place] [address] Dr. Hayder Howell Crystals LM Nom (Urine sed) NONE SEEN Normal NONE SEEN [facility] Comment on above: Performed By: #### U MICRO, ERUR #### [facility] [address] [place] [address] Dr. Hayder Howell Epithelial cells LM Ql (Urine sed) RARE Normal NONE SEEN /RARE [facility] Comment on above: Performed By: #### U MICRO, ERUR #### [facility] [address] [place] [address] Dr. Hayder Howell MUCOUS NONE SEEN Normal NONE SEEN [facility] Comment on above: Performed By: #### U MICRO, ERUR #### [facility] [address] [place] [address] Dr. Hayder Howell RBC 0-2 Normal 0-2 [facility] Comment on above: Performed By: #### U MICRO, ERUR #### [facility] [address] [place] [address] Dr. Hayder Howell WBC 0-2 Abnormal NONE SEEN [facility] Comment on above: Performed By: #### U MICRO, ERUR #### [facility] [address] [address] [address] Hayder Howell XR RIBS BIL_PA CH [...] Date: 2021-12-01 09:59 Normal [facility] Vital Signs Date Time Vital Sign Value Performing Clinician Faci lity 12-28-2023 10:040 Body height 177.8 cm M.D. Percy Mercer Work Phone: [facility] 12-28-2023 10:040 Body mass index (BMI) [Ratio] 29.5 kg/m2 M.D. Percy Mercer Work Phone: [facility] 12-28-2023 10:26040 Body weight 93.44 kg M.D. Percy Mercer Work Phone: [facility] 12-28-2023 10:26-040 Diastolic blood pressure 64 mm[Hg] M.D. Percy Mercer Work Phone: [facility] 12-28-2023 10:040 Heart rate 61 /min M.D. Percy Mercer Work Phone: [facility] 12-28-2023 10:26-0400 SaO2% (BldA) [Mass fraction] 99 % M.D. Percy Mercer Work Phone: [facility] 12-28-2023 10:26-0400 Systolic blood pressure 102 mm[Hg] Margot Mercer Work Phone: [facility] Encounters Encounter Date Encounter Type Care Provider Facility Start: 02-08-2024 End: 02-08-2024 ambulatory ANYI Faye APLING Not Available Start: 01-04-2024 End: 01-04-2024 Departed Referred Margot Mercer Work Phone: [facility] Work Phone: Start: 01-04-2024 End: 01-04-2024 ambulatory Charlee Shahnaz [facility] Work Phone: Start: 01-04-2024 End: 01-04-2024 Patient encounter procedure Margot Mercer Work Phone: [facility] Work Phone: Start: 01-02-2024 Non-patient / Non-visit Margot Mercer Work Phone: [facility] Work Phone: Start: 12-28-2023 End: 12-28-2023 ambulatory Margot Mercer Work Phone: [facility] Work Phone: Start: 12-28-2023 End: 12-28-2023 Patient encounter procedure Margot Mercer Work Phone: [facility] Work Phone: Start: 08-08-2023 End: 08-08-2023 ambulatory ANYI Mckinney APLING Not Available Start: 08-01-2023 Telephone encounter Anyi calvin INTERNET SITE DESIGNER Work Phone: [facility] Comment on above: Lab Orders Start: 01-24-2023 Patient encounter status Anyi Garcia INTERNET SITE DESIGNER Work Phone: [facility] Start: 06-09-2022 End: 06-10-2022 ambulatory ANYI GARCIA Facility:[facility] Start: 01-06-2022 End: 01-07-2022 ambulatory NONE LISTED REQUEST Facility:[facility] Start: 01-01-2022 End: 01-01-2022 ambulatory Charlee Shields Other [facility] [employer] Other Start: 01-01-2022 Telephone encounter Charlee Shields [facility] Start: 12-29-2021 End: 12-29-2021 ambulatory Collette Zhaoxa Other [facility] Other Start: 12-29-2021 Postop follow up vis it related to original px Collette Zhaoxa [facility] Start: 12-08-2021 End: 12-09-2021 ambulatory COLLETTE OLEXA [facility] Other Start: 12-08-2021 [facility] visit new patient Collette Morales [facility] [place] Start: 12-01-2021 End: 12-01-2021 ambulatory NONE LISTED REQUEST Facility: Start: 03-23-1988 Evaluation and management of inpatient Margot Greer Sylvie Work Phone: [facility] Plan of Treatment Date Care Activity Detail Author Start: 01-04-2024 Bacteria identified in Urine by Culture [facility] Start: 10-17-2023 End: 10-17-2023 Patient encounter procedure 10/17/2023 1:00 PM EDT Office Visit [facility] [address] [facility] [address] [place] [address] Errol Nickerson MD [address] [facility] [address] [place] [id number] [facility] Start: 08-08-2023 End: 08-08-2023 Patient encounter procedure 08/08/2023 11:00 AM EST Office Visit [facility] [address] [facility] [address] [place] [address] Anyi Garcia, INTERNET SITE DESIGNER [address] [facility] [address] [place] [address] [facility] Start: 08-01-2023 End: 08-01-2024 Calcium [Mass/volume] in Serum or Plasma Calcium Lab Routine Age-related osteoporosis without current pathological fracture ([facility]) Expected: 08/01/2023 (Approximate), Expires: 08/01/2024 [facility] Work Phone: Comment on above: Expected: 08/01/2023 (Approximate), Expires: 08/01/2024 Start: 03-04-2023 Influenza vaccination Influenza Vacc ine (#1) [facility] Immunizations Immunization Date Immunization Notes Care Provider Fa cility 04-10-2021 influenza virus vacc ine, unspecified formulation Anyi Garcia NP Work Phone: [facility] 12-08-2020 pneumococcal polysaccharide vaccine, 23 valent Anyi Garcia NP Work Phone: [facility] 08-05-2020 influenza, injectabl e, quadrivalent, preservative free Anyi Garcia NP Work Phone: [facility] Healthcare Payers Date Payer Category Payer Managed Care O (unspecified) [employer] A[employer] [id number] 2001-Present [address] [place] [address] O [id number] 1959 Private Health Insurance [id number] 1959 Self-pay 1942 Unknown [id number] 1942 Unknown [id number] 1942 Unknown [id number] 1942 Unknown [id number] 1942 Unknown [id number] 1942 Unknown [id number] 1942 Unknown [id number] Unknown [id number] Unknown [id number] Social History Date Type Detail Facility Start: 03-28-2023 Sex Assigned At [facility] [employer] Other Start: 01-12-2023 End: 12-28-2023 Tobacco smoking status [facility] Ex-smoker [facility] Healthcare End: 07-04-1972 History of tobacco use Current smoker [facility] End: 07-04-1972 History of tobacco use Cigarette Smoker [facility] Start: 01-12-2023 Tobacco use and exposure Smokeless tobacco non-user [facility] Start: 07-22-2023 Alcohol intake Ex-drinker (finding) [facility] Start: 03-28-2023 History of Social function [facility] Start: 01-12-2023 Alcohol Comment stopped drinking 198 0s? [facility] Healthcare Start: 1940 Sex Assigned At Male N [facility] Healthcare Start: 03-28-2023 Gender identity Identifies as male gender (finding) [facility] Medical Equipment Procedure Code Equipment Code Equipment Origin al Text Equipment Identifier Dates BD Pen Needle Na no U/F 32G X 4 MM [facility] [id number] Start: 12-15-2022 Clinical Notes 12-01-2021 to 08-05-2023 [...] order for him to take back to [facility] for his lab. [facility] 08-05-2023 Miscellaneous Notes Formattin g of this note might be different from the original. Patient just stopped in to [facility] and I printed the signed order for him to take back [facility] [facility]. Patient called and stated he is at [facility] for calcium lab since he is to have a Prolia shot Tuesday, but [facility] doesn't have the order and he would like us to refax it. Patient's call back is [phone]. Please advise, thank you documented in this encounter [facility] 08-05-2023 Telephone encounter Note Form atting of this note might be different from the original. Patient called and stated he is at [facility] for calcium lab since he is to have a Prolia shot Tuesday, but [facility] doesn't have the order and he would like us to refax it. Patient's call back is [phone]. Please advise, thank you [facility] 12-29-2021 Evaluation note Encounter Date Diagnosis Assessment Notes Dec, Closed fracture of olecranon process of left ulna with routine healing, subsequent encounter (ICD-10 - S52.022D) Radiographs reviewed with patient today. Discussed with patient to continue to wear splint and use sling for protection when out of the home. Discussed with patient he can progress to range of motion exercises. [employer] Other 06-08-2022 NotePROCEDURE: XR ELBOW LT 2V [...] Electronically authenticated by: DEBBI GUPTA Date: 2021-12-09 07:01[facility]06-07-2022 Evaluation note* Encounter Date Diagnosis Assessment [...] discussed that this injury can lead to residential elbow pain and stiffness. Discussed with patient to call if he would like home health Since there is not significant displacement and he states he is very limited with normal activities in general I think that nonoperative treatment will be adequate. [employer] Other 05-31-2022 NotePROCEDURE: XR ELBOW LT 2V [...] Electronically authenticated by: DEBBI GUPTA Date: 2021-12-01 11:06[facility]05-31-2022 NotePROCEDURE: XR ELBOW LT MIN 3 [...] Electronically authenticated by: DEBBI GUPTA Date: 2021-12-01 10:01[facility]05-31-2022 NotePROCEDURE: XR HIP LT 2 3V [...] authenticated by: DEBBI GUPTA Date: 2021-12-01 09:56[facility] noteNo InformationNortEncompass [facility] [employer] Other Evaluation note* Diagnosis Age-related osteoporosis without current pathological fracture (CMS/HCC)- Primary Age-related osteoporosis without current pathological fracture (CMS/HCC)- Primary [facility] Diagnosis Onset Date Resolution Status CAD (coronary artery disease) acute Hyperlipidemia acute Hypertension acute Myasthenia gravis acute Tinea acute Type 2 diabetes mellitus acu te UTI (urinary tract infection) acute [facility] Work Phone: Evaluation note* Diagnosis Onset Date Resolution Status CAD (coronary artery disease) acute Candidal intertrigo acute Hyperlipidemia acute Hypertension acute Myasthenia gravis acute Tinea acute Type 2 diabetes mellitus acu te UTI (urinary tract infection) acute [facility] Work Phone: Evaluation note* Diagnosis Onset Date Resolution Status CAD (coronary artery disease) acute Candidal intertrigo acute Hyperlipidemia acute Hypertension acute Myasthenia gravis acute Tinea acute Type 2 diabetes mellitus acu te UTI (urinary tract infection) acute UTI (urinary tract infection) [facility] Work Phone: History general Narrative - Reported* Type Description Date Medical History hypertension Medical History hyperlipidemia [facility] [employer] Other Summary Purpose Family History No Family [...] and content) DATE CREATED AUTHOR 06/12/[address] [facility] DATE CREATED AUTHOR AUTHOR'S ORGANIZ ATION 01/19/2024 [facility] DATE CREATED AUTHOR AUTHOR'S ORGANIZ ATION 02/13/2024 [facility] EPIC Care Teams (unrecognized sec [...] BE BASED ON THE PRIMARY CLINICAL RECORDS. [facility] [employer] [facility]. provides no warranty or guarantee of the accuracy or completeness of information in this document.
== END 2024-03-03 09:24 | disposition home or self-care (01) ==
LOC: CT 09:23
PROVIDERS: PCP Nurse Practitioner Family; Visit Provider Nurse Practitioner Family
DX: R68.84 Jaw pain (principal); M81.0 Age-related osteoporosis without current pathological fracture
CPT/HCPCS: 70488; Q9967